=== PATIENT | female | born 1935 | race Caucasian/White ===

== ENCOUNTER 2017-04-27 11:25 | Outpatient (CLI) | payer MEDICARE, OTHER ==
--- NOTE | 2017-04-27 15:59 | XRAY Report ---
LEFT HIP AND PELVIS: 04/27/2017 CLINICAL INDICATION: Pain. FINDINGS: Frontal view of the hips and pelvis and frogleg lateral view of the left hip demonstrate m ild osteoarthritis. There is no evidence of fracture or dislocation. Vascular phleboliths are inciden tally noted. IMPRESSION: MILD LEFT HIP OSTEOARTHRITIS. JOB #: [id number] EXT JOB #:[id number]
== END 2017-04-27 11:26 | disposition home or self-care (01) ==
LOC: DI.S 11:25
PROVIDERS: ATTEND Nurse Practitioner Family
DX: M16.12 Unilateral primary osteoarthritis, left hip (principal)

== ENCOUNTER 2017-07-05 07:58 | Outpatient (CLI) | payer MEDICARE, OTHER ==
[2017-07-05] MEDS ORDERED: GADOBUTROL 7.5 MMOL/7.5 ML VIAL IVP ONE (09:19)
--- NOTE | 2017-07-05 18:17 | MRI Report ---
EXAM: MRI BRAIN WITHOUT AND WITH CONTRAST EXAM DATE: 07/05/2017 09:50 AM. CLINICAL HISTORY: Multiple sclerosis. Slurred speech, drooling, intermittent gait changes, vertigo. COMPARISON: CT head 06/23/2015, MR brain 04/11/2013. TECHNIQUE: Multiplanar, multisequence T1-weighted and fluid-sensitive MR sequences of the brain were performed. Sequences optimized for demyelinating disease evaluation. Other: None. Without and with IV Contrast: 6.5 mL IV Gadavist. FINDINGS: Diffusion-weighted sequence demonstrates no evidence for acute infarct or focal abnormalities. There is no mass, mass effect, midline shift or abnormal extra-axial collections. Size and configuration of the ventricles appear normal. Multifocal, innumerable, greater than 30, T2 hyperintense lesions throughout the periventricular and subcortical supratentorial white matter. Compared to most recent prior MRI 04/11/2013, multifocal new small lesions are scattered throughout bilateral centrum semiovale. Areas of semiconfluent T2 hyperi ntensities in the periventricular left frontal lobe, right posterior frontal lobe, peritrigonal left parietal lobe and periventricular frontal horns appear unchanged. In the infratentorial compartment, ill-defined T2 hyperintensity in the ventral anjel and left dorsola teral medulla most likely represents artifacts. Limited evaluation of the arterial and dural venous sinus structures are unremarkable. Major intracra nial flow voids are preserved. There is no abnormal enhancement. IMPRESSION: 1. No acute abnormalities. No acute infarct, intracranial hemorrhage, midline shift, mass lesion or h ydrocephalus. 2. Multifocal innumerable, too numerous to count T2 hyperintense lesions throughout the periventricul ar and subcortical cerebral white matter. In comparison to 04/11/2013, lesions appear more numerous i n bilateral centrum semiovale. Semiconfluent areas of T2 hyperintensities in general remain unchanged . No new or enlarging T1 hypointense lesion. 3. No abnormal enhancement to suggest active inflammation/demyelination. [facility] Referring Provider Line: [phone] SITE ID: [id number]
== END 2017-07-05 07:59 | disposition home or self-care (01) ==
LOC: DI 07:58
PROVIDERS: ATTEND Psychiatry & Neurology Neurology
DX: G35 Multiple sclerosis (principal); M47.896 Other spondylosis, lumbar region; M51.37 Other intervertebral disc degeneration, lumbosacral region; M51.36 Other intervertebral disc degeneration, lumbar region; R25.1 Tremor, unspecified; G47.01 Insomnia due to medical condition; R20.2 Paresthesia of skin
CPT/HCPCS: 70553; 72148; A9585

== ENCOUNTER 2017-07-05 07:59 | Outpatient (CLI) | payer MEDICARE, OTHER ==
--- NOTE | 2017-07-05 16:30 | MRI Report ---
EXAM: MRI LUMBAR SPINE WITHOUT CONTRAST EXAM DATE: 07/05/2017 09:24 AM. CLINICAL HISTORY: Chronic low back pain for many years. Left hip and buttock pain radiating into the left thigh. Some left leg numbness. COMPARISON: None. TECHNIQUE: Multiplanar, multisequence T1-weighted and fluid-sensitive sequences of the lumbar spine f rom T12 to S1 without contrast. Other: None. FINDINGS: Spinal Cord: The conus terminates at L1-L2. No signal abnormality in the visualized spinal cord. Alignment: Normal. No scoliosis or spondylolisthesis. Bone Marrow: Five [id number] lumbar vertebral bodies are assumed. No gross fractures or bone les ions. No bone marrow edema. Disk Levels/Facets: T12-L1: Unremarkable. L1-L2: Unremarkable. L2-L3: Mild bilateral facet joint osteoarthritis. L3-L4: There is a broad-based posterior disk bulge with mild facet joint osteoarthritis and ligamentu m flavum redundancy causing mild canal narrowing. Mild bilateral foraminal narrowing. L4-L5: There is mild bilateral facet joint osteoarthritis. There is mild bilateral foraminal narrowin g. The canal is patent. L5-S1: There is a posterior annular tear with a broad-based posterior disk bulge and mild facet joint osteoarthritis causing minimal canal narrowing. There is moderate right and mild left foraminal narr owing. On the right a facet joint osteophyte appears to contact the L5 nerve root. Musculature: Normal. No edema or fatty atrophy. Other: The visualized pelvic cavity is unremarkable. IMPRESSION: 1. Mild degenerative change of the lumbar spine from L2-L3 to L5-S1. 2. Mild facet joint osteoarthritis noted from L2-L3 to L5-S1. 3. An osteophyte appears to contact the right L5 nerve root in the neural foramen. Comment: The following findings are so common in adults without low back pain that while we report th eir presence, they must be interpreted with caution and in the context of the clinical situation. (Re nakia Miller et al, Spine 2001) Prevalence of findings in patients without low back pain: Disk degeneration (any evidence): 92% Disk desiccation/T2 signal loss: 83% Disk height loss: 56% Disk bulge: 64% Disk protrusion: 32% Annular tear/high intensity zone: 38% [facility] Referring Provider Line: [phone] SITE ID: [id number]
== END 2017-07-05 08:00 | disposition home or self-care (01) ==
LOC: DI 07:59
PROVIDERS: ATTEND Orthopaedic Surgery
DX: M47.896 Other spondylosis, lumbar region (principal); M51.37 Other intervertebral disc degeneration, lumbosacral region; M51.36 Other intervertebral disc degeneration, lumbar region
CPT/HCPCS: 72148

== ENCOUNTER 2018-03-13 09:29 | Outpatient (CLI) | payer MEDICARE, OTHER ==
[2018-03-13 10:18] LABS: CALCIUM 8.8 mg/dL (8.5-10.3)
== END 2018-03-13 09:30 | disposition home or self-care (01) ==
LOC: LAB 09:29
PROVIDERS: ATTEND Internal Medicine Cardiovascular Disease
DX: N18.3 Chronic kidney disease, stage 3 (moderate) (principal); I50.22 Chronic systolic (congestive) heart failure
CPT/HCPCS: 36415; 80048; 83880

== ENCOUNTER 2018-07-01 08:00 | Outpatient (CLI) | payer MEDICARE, OTHER ==
[2018-07-01 18:24] LABS: CALCIUM 9.2 mg/dL (8.5-10.3); CREATININE 1.1 mg/dL (0.4-1.0)
== END 2018-07-01 08:01 ==
LOC: LAB.S 08:00
PROVIDERS: ATTEND Family Medicine
DX: I48.2 Chronic atrial fibrillation (principal); I50.21 Acute systolic (congestive) heart failure
CPT/HCPCS: 36415; 80048

== ENCOUNTER 2018-12-11 07:37 | Outpatient (CLI) | payer MEDICARE, OTHER ==
--- NOTE | 2018-12-17 09:17 | Mammography Report ---
Reason: SCREENING MAMMO Procedure Date: 12/11/2018 Accession Number: [id number] / [id number] Procedure: MARIE - Screening Mammo Right w/Ray CPT Code: FULL RESULT: EXAM: Screening Mammo Right w/Ray DATE: 12/11/2018 8:14 AM CLINICAL HISTORY: Screening encounter. Personal history of left breast cancer status post mastectomy and radiation. Personal history of right breast cancer status post excisional biopsy and lumpectomy. TECHNIQUE: Right breast CC and MLO views were obtained. COMPARISON: 04/18/2017 through 04/23/2013. FINDINGS: The right breast demonstrates diffuse fatty replacement. Postsurgical changes and coarse typically benign calcifications as well as typically benign vascular calcifications are identified. No suspicious masses, clustered microcalcifications, or regions of architectural distortion are identified. IMPRESSION: Benign findings RECOMMENDATION: Routine annual screening unless otherwise clinically indicated. BIRADS CATEGORY 2: Benign findings STANDARD QUALIFYING STATEMENTS: 1. This examination was not reviewed with the aid of Computer-Aided Detection (CAD). 2. A negative or benign imaging report should not preclude biopsy if clinically suspicious findings are present. 3. Dense breasts may obscure an underlying neoplasm. 4. This examination was reviewed with the aid of 3D breast imaging (tomosynthesis).
== END 2018-12-11 07:38 | disposition home or self-care (01) ==
LOC: DI 07:37
PROVIDERS: ATTEND Internal Medicine Hematology & Oncology
DX: Z12.31 Encounter for screening mammogram for malignant neoplasm of breast (principal); Z08 Encounter for follow-up examination after completed treatment for malignant neoplasm; Z85.3 Personal history of malignant neoplasm of breast
CPT/HCPCS: 77063

== ENCOUNTER 2019-05-23 14:24 | Emergency (ER) | payer MEDICARE, OTHER ==
--- NOTE | 2019-05-23 14:59 | ED Physician Documentation ---
PD HPI HEAD INJURY - Stated complaint Stated Complaint: HEAD INJ - Chief complaint Chief Complaint: Trauma Hd/Nk - History obtained from History obtained from: Patient, Family () - History of Present Illness Mechanism of head injury: Blow Where head injury occurred: Home Timing - onset: How many days ago (3) Location of injury: Back, Top Quality of pain: Aching Associated symptoms: No: LOC, Nausea / vomiting, Neck pain Symptoms worsen with: Palpation Contributing factors: Anticoagulated (on Eliquis) Similar symptoms before: Has not had sx before - Additional information Additional information: The patient is a 83-year-old female who banged the occipital region of her scalp on a open cabinet door 3 days ago when she stood up from a bent over position. She reports that it was a very significant blow to her head. She denies loss of consciousness. She reports persistent occipital headache. She denies visual disturbance or vomiting, but has had mild nausea. She is treated with Eliquis, presumably for atrial fibrillation. She also has history of MS, and has undergone surgery and radiation therapy for breast cancer. Review of Systems Constitutional: denies: Fever Eyes: denies: Decreased vision Ears: denies: Tinnitus/ringing Nose: denies: Congestion Throat: denies: Sore throat Cardiac: denies: Chest pain / pressure Respiratory: denies: Dyspnea, Cough GI: reports: Nausea (mild). denies: Abdominal Pain, Vomiting : denies: Dysuria Skin: denies: Rash, Laceration (s) Musculoskeletal: denies: Neck pain, Extremity pain Neurologic: reports: Headache, Head injury. 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 - Past Surgical History /PAINTING TECHNICIAN: Mastectomy - Present Medications Home Medications: Ambulatory Orders Medication Instructions Recorded Confirmed Metoprolol Succinate [Toprol Xl] 25 mg PO DAILY 05/17/15 05/23/19 Omeprazole 20 mg PO DAILY 05/17/15 05/23/19 Spironolactone 25 mg PO BID 05/17/15 05/23/19 Apixaban [Eliquis] 5 mg PO DAILY 10/21/18 05/23/19 - Allergies Allergies/Adverse Reactions: Allergies Allergy/AdvReac Type Severity Reaction Status Date / Time benzocaine Allergy Severe Hives Verified 05/23/19 14:42 codeine AdvReac Anaphylaxis Verified 05/23/19 14:42 - Living Situation Living Situation: reports: With spouse/s.o. PD ED PE NORMAL - Vitals Vital signs reviewed: Yes (Borderline systolic hypertension initially.) - General General: Alert and oriented X 3, Well developed/nourished - HEENT HEENT: EOMI, Pharynx benign, Other (Mild tenderness to palpation of occipital scalp, without evidence of hematoma or laceration.) - Neck Neck: Supple, no meningeal sign, No bony TTP, No JVD, Other (Cervical range of motion intact, without tenderness.) - Cardiac Cardiac: RRR - Respiratory Respiratory: No respiratory distress, Clear bilaterally - Abdomen Abdomen: Soft, Non tender - Back Back: No CVA TTP, No spinal TTP - Derm Derm: No rash - Extremities Extremities: No edema, No calf tenderness / cord - Neuro Neuro: Alert and oriented X 3, No motor deficit, No sensory deficit Eye Opening: Spontaneous Motor: Obeys Commands Verbal: Oriented GCS Score: 15 Results - Vitals Vitals: Oxygen O2 Source Room air - Rads (name of study) Head CT w/o Radiology: Prelim report reviewed, EMP read contemporaneously, See rad report (Generalized age-related cortical atrophic changes without evidence of acute intracranial abnormality.) PD MEDICAL DECISION MAKING - ED course Complexity details: reviewed results, re-evaluated patient, considered differential, d/w patient, d/w family ED course: The patient's presentation is most consistent with scalp contusion. Head CT reveals no evidence of intracranial hemorrhage or skull fracture. I discussed the CT results with the patient and her . I discussed with them the expected course of injury, symptomatic treatment, as well as potentially worrisome signs or symptoms that should prompt reevaluation. Departure - Departure Disposition: 01 Home, Self Care Clinical Impression: Head contusion Qualifiers: Encounter type: initial encounter Contusion of head detail: scalp Qualified Code(s): S00.03XA - Contusion of scalp, initial encounter Condition: Stable Instructions: ED Head Injury Closed Follow-Up: Meño Bray MD [Primary Care Provider] - Comments: He can use Tylenol or ibuprofen as needed for headache or discomfort. Follow-up with your primary physician or return to the emergency department if you develop increasing headache, persistent vomiting, numbness or weakness, or otherwise worsening symptoms. Discharge Date/Time: 05/23/19 15:50
--- NOTE | 2019-05-23 15:38 | CT Report ---
Reason: Head injury, on Eliquis. Procedure Date: 05/23/2019 Accession Number: [id number] / [id number] Procedure: CT - HEAD WO CPT Code: FULL RESULT: EXAM: CT HEAD EXAM DATE: 05/23/2019 03:05 PM. CLINICAL HISTORY: Head injury, on Eliquis. COMPARISON: HEAD W/O 06/23/2015 2:58 PM. TECHNIQUE: Multiaxial CT images were obtained from the foramen magnum to the vertex. Reformats: Sagittal and coronal. IV contrast: None. In accordance with CT protocol optimization, one or more of the following dose reduction techniques were utilized for this exam: automated exposure control, adjustment of mA and/or KV based on patient size, or use of iterative reconstructive technique. FINDINGS: Parenchyma: No intraparenchymal hemorrhage. No evidence of mass, midline shift, or CT findings of acute infarction. Krishnamurthy-white differentiation is distinct. Diffuse chronic microangiopathic white matter changes. Extraaxial Spaces: Normal for age. No subdural or epidural collections. Ventricles: The ventricles and cortical sulci are enlarged, consistent with age-related tissue loss. Sinuses and orbits: Imaged paranasal sinuses, orbits, and mastoids show no significant abnormality. Bones: Unremarkable. Other: None. IMPRESSION: Generalized age-related cortical atrophic changes without evidence of acute intracranial abnormality. [facility]
[2019-05-23 16:13] VITALS: BP 146/76
== END 2019-05-23 15:50 | disposition home or self-care (01) ==
LOC: ED 14:24
DX: S00.03XA Contusion of scalp, initial encounter (principal); W22.8XXA Striking against or struck by other objects, initial encounter; Y92.009 Unspecified place in unspecified non-institutional (private) residence as the place of occurrence of the external cause; I48.91 Unspecified atrial fibrillation; Z79.01 Long term (current) use of anticoagulants; I10 Essential (primary) hypertension; G35 Multiple sclerosis; Z08 Encounter for follow-up examination after completed treatment for malignant neoplasm; Z85.3 Personal history of malignant neoplasm of breast
CPT/HCPCS: 70450; 99282; 99283

== ENCOUNTER 2019-07-09 15:34 | Outpatient (CLI) | payer MEDICARE, OTHER ==
[2019-07-09 17:39] LABS: MEAN CORPUSCULAR HEMOGLOBIN 30.3 pg (27.0-31.0); MEAN CORPUSCULAR HGB CONC 32.4 g/dL (32.0-36.0); MEAN CORPUSCULAR VOLUME 93.5 fL (81.0-99.0); MEAN PLATELET VOLUME 10.1 fL (7.9-10.8); RED BLOOD COUNT 4.29 10^6/uL (4.20-5.40); RED CELL DISTRIBUTION WIDTH 13.3 % (12.0-15.0); WHITE BLOOD COUNT 7.9 x10^3/uL (4.8-10.8)
[2019-07-09 18:01] LABS: ALBUMIN 4.4 g/dL (3.2-5.5); ALBUMIN/GLOBULIN RATIO 1.5 (1.0-2.2); ALKALINE PHOSPHATASE 72 IU/L (42-121); ALT ALANINE AMINOTRANSFERASE 14 IU/L (10-60); AST ASPARTATE AMINOTRANSFERASE 29 IU/L (10-42); BILIRUBIN,TOTAL 0.8 mg/dL (0.2-1.0); BUN - BLOOD UREA NITROGEN 15 mg/dL (6-20); CALCIUM 9.4 mg/dL (8.5-10.3); CARBON DIOXIDE - CO2 22 mmol/L (21-32); CHLORIDE 101 mmol/L (101-111); CHOL/HDL RATIO 3.7 (<4.4); CHOLESTEROL 200 mg/dL; CREATININE 1.1 mg/dL (0.4-1.0); GFR - MDRD 47 (>89); GLUCOSE 97 mg/dL (70-100); HDL CHOLESTEROL 54 mg/dL; LDL CHOLESTEROL,CALCULATED 123 mg/dL; LDL/HDL RATIO 2.3 (<4.4); SODIUM 135 mmol/L (135-145); TOTAL PROTEIN 7.4 g/dL (6.7-8.2); VLDL CHOLESTEROL 23 mg/dL
== END 2019-07-09 15:35 | disposition home or self-care (01) ==
LOC: LAB.S 15:34
PROVIDERS: ATTEND Internal Medicine
DX: E78.5 Hyperlipidemia, unspecified (principal); I48.2 Chronic atrial fibrillation; Z13.1 Encounter for screening for diabetes mellitus
CPT/HCPCS: 36415; 80053; 80061; 83036; 83721; 84443; 85027

== ENCOUNTER 2019-08-05 10:23 | Outpatient (CLI) | payer MEDICARE, OTHER ==
--- NOTE | 2019-08-05 14:36 | DEXA Report ---
Reason: OSTEOPOROSIS Procedure Date: 08/05/2019 Accession Number: [id number] / [id number] Procedure: DEX - Dexa Spine and/or Hip CPT Code: FULL RESULT: EXAM: Dexa Spine and/or Hip DATE: 08/05/2019 12:40 PM CLINICAL HISTORY: Osteopenia follow-up TECHNIQUE: Dual energy x-ray absorptiometry (DXA) was performed on a [employer] System. Regions measured are the AP Spine, femoral neck, and if needed forearm. COMPARISON: 03/13/2018, 03/05/2017 In accordance with the International Society for Clinical Densitometry (ISCD) guidelines, data from previous exams may be reanalyzed using current recommendations and techniques. This is done to allow a more accurate basis for comparison with the current study. FINDINGS: The data for the lumbar spine is as follows: BMD (g/cm/cm) T-SCORE Z-SCORE REGION L1 0.868 -2.2 -0.8 L2 1.012 -1.6 -0.2 L3 1.005 -1.6 -0.3 L4 0.981 -1.8 -0.5 TOTAL 0.970 -1.7 -0.4 NOTE: All evaluable vertebrae are used for classification The data for the hip is as follows: BMD (g/cm/cm) T-SCORE Z-SCORE REGION Neck 0.790 -1.8 0.2 TOTAL 0.810 -1.6 0.2 NOTE: The femoral neck or total proximal femur, whichever is lowest, is used for classification. DXA RESULTS SUMMARY: Spine SCAN DATE [age] BMD CHANGE VS CHANGE VS PREVIOUS PREVIOUS % [birth year]2019 [age] 0[age]970 0.031* 3.3* 03[birth year]13/2018 82.5 0.939 -0.014 -1.5 03/05/2017 81.4 0.953 * Denotes significant change at the 95% confidence level. Denotes dissimilar scan types or analysis methods. DXA RESULTS SUMMARY: Hip SCAN DATE [age]GE BMD CHANGE VS CHANGE VS PREVIOUS PREVIOUS % [birth year]2019 [age] 0.810 -0.008 -1 03[birth year]13[birth year]2018 82.5 0.818 -0.001 -0.1 03/05/2017 81.4 0.819 * Denotes significant change at the 95% confidence level. Denotes dissimilar scan types or analysis methods. IMPRESSION: THE WHO CLASSIFICATION BASED ON THE INTERNATIONAL REFERENCE STANDARD IS OSTEOPENIA, REFERENCE LEFT FEMORAL NECK. THE FRACTURE RISK IS INCREASED. RECOMMENDATION: Patients with diagnosis of osteoporosis or osteopenia should have regular bone mineral density assessment. For those eligible for Medicare, routine testing is allowed once every 2 years. Testing frequency can be increased for patients who have rapidly progressing disease or for those who are receiving medical therapy to restore bone mass. COMMENT: World Health Organization (WHO) definitions for osteoporosis and osteopenia: NORMAL BMD: T-score at -1.0 or higher, fracture risk is low OSTEOPENIA BMD: T-score between -1.0 and -2.5, fracture risk is increased. OSTEOPOROSIS BMD: T-score at -2.5 or lower, fracture risk is high. National Osteoporosis Foundation recommends: 1. Obtain adequate dietary calcium (at least 1200 mg per day) and vitamin D (400-800 international units per day). 2. Participate, as appropriate, in regular weightbearing and muscle-strengthening exercise. 3. Avoid tobacco use and reduce alcohol and caffeine intake. 4. For more detailed information see the website at www.NOF.org.
== END 2019-08-05 10:24 | disposition home or self-care (01) ==
LOC: DI 10:23
PROVIDERS: ATTEND Internal Medicine
DX: M85.89 Other specified disorders of bone density and structure, multiple sites (principal)
CPT/HCPCS: 77080

== ENCOUNTER 2019-09-04 12:14 | Outpatient (CLI) | payer MEDICARE, OTHER | END 2019-09-04 12:15 | disposition home or self-care (01) | LOC: RT 12:14 | PROVIDERS: ATTEND Internal Medicine Cardiovascular Disease | DX: I48.91 Unspecified atrial fibrillation (principal) | CPT/HCPCS: 93005 ==

== ENCOUNTER 2019-09-29 11:19 | Outpatient (CLI) | payer MEDICARE, OTHER | END 2019-09-29 11:20 | disposition home or self-care (01) | LOC: DI 11:19 | PROVIDERS: ATTEND Internal Medicine Cardiovascular Disease | DX: I50.9 Heart failure, unspecified (principal); I34.0 Nonrheumatic mitral (valve) insufficiency | CPT/HCPCS: 93306 ==

== ENCOUNTER 2020-04-05 11:57 | Emergency (ER) | payer MEDICARE, OTHER ==
[2020-04-05 12:31] LABS: BASOPHILS % (AUTO) 0.4 %; EOSINOPHILS # (AUTO) 0.1 10^3/uL (0.0-0.7); HGB - HEMOGLOBIN 12.1 g/dL (12.0-16.0); LYMPHOCYTES # (AUTO) 1.7 10^3/uL (1.5-3.5); LYMPHOCYTES % (AUTO) 23.5 %; MEAN CORPUSCULAR HEMOGLOBIN 30.6 pg (27.0-31.0); MEAN CORPUSCULAR HGB CONC 33.4 g/dL (32.0-36.0); MEAN CORPUSCULAR VOLUME 91.6 fL (81.0-99.0); MEAN PLATELET VOLUME 8.4 fL (7.9-10.8); MONOCYTES # (AUTO) 0.9 10^3/uL (0.0-1.0); MONOCYTES % (AUTO) 12.2 %; NEUTROPHILS # (AUTO) 4.5 10^3/uL (1.5-6.6); NEUTROPHILS % (AUTO) 62.5 %; PLT - PLATELET COUNT 239 10^3/uL (130-450); RED BLOOD COUNT 3.95 10^6/uL (4.20-5.40); RED CELL DISTRIBUTION WIDTH 12.5 % (12.0-15.0); WHITE BLOOD COUNT 7.1 x10^3/uL (4.8-10.8)
[2020-04-05 12:41] LABS: ALBUMIN 4.2 g/dL (3.2-5.5); ALBUMIN/GLOBULIN RATIO 1.4 (1.0-2.2); BILIRUBIN,TOTAL 0.5 mg/dL (0.2-1.0); CALCIUM 8.9 mg/dL (8.5-10.3); CREATININE 1.6 mg/dL (0.4-1.0); TOTAL PROTEIN 7.3 g/dL (6.7-8.2)
--- NOTE | 2020-04-05 13:00 | XRAY Report ---
Reason: Chest Pain Procedure Date: 04/05/2020 Accession Number: [id number] / [id number] Procedure: XR - Chest 1 View X-Ray CPT Code: 29576 Final Report FULL RESULT: EXAM: CHEST RADIOGRAPHY EXAM DATE: 04/05/2020 12:34 PM. CLINICAL HISTORY: Chest Pain. COMPARISON: CXR 1V 07/17/2007 5:30 PM. TECHNIQUE: 1 view. FINDINGS: Lungs/Pleura: Right costophrenic angle blunting. No pneumothorax. Mediastinum: Atherosclerotic aortic calcification. Other: Left lateral and right lower chest surgical clips. Proximal right humeral deformity. Bones appear osteopenic. IMPRESSION: 1. Proximal right humeral nondisplaced fracture, possibly acute or subacute. Consider dedicated right shoulder series to further assess. 2. Right costophrenic angle blunting, likely due to small pleural effusion or early airspace disease. [facility]
--- NOTE | 2020-04-05 13:43 | ED Physician Documentation ---
PD HPI DYSPNEA - Stated complaint Stated Complaint: CP/WEAKNESS - Chief complaint Chief Complaint: Cardiac - History obtained from History obtained from: Patient - History of Present Illness Timing - onset: How many days ago (3-4) Timing - onset during: Rest, Light activity Timing - duration: Days Timing - details: Gradual onset (has had several days of chest tightness, dyspnea, general fatigue. States felt chills/myalgias at onset of it, but not the past 1-2 days. Concerned about cause of general weakness. Has history of MS, which had been reasonably stable lately.), Still present, Waxing and waning Inciting event(s): No: Out of meds, URI Improved by: Rest Worsened by: Exertion (just simple working). No: Laying flat, Coughing Associated symptoms: Palpitations. No: Fever (but feeling of chills), Cough, Wheezing, Diaphoresis, Bilateral edema Similar symptoms before: Diagnosis (weakness in the past related to MS and immune related disease.) Review of Systems Constitutional: reports: Chills, Myalgias, Fatigue. denies: Fever, Weight Loss Nose: denies: Rhinorrhea / runny nose, Congestion Throat: denies: Sore throat Cardiac: reports: Chest pain / pressure, Pedal edema. denies: Palpitations, Calf pain Respiratory: reports: Dyspnea. denies: Cough GI: denies: Abdominal Pain, Nausea, Vomiting, Diarrhea Neurologic: reports: Generalized weakness. 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 - Past Surgical History Past Surgical History: Yes /SSAS DEVELOPER: Mastectomy - Present Medications Home Medications: Ambulatory Orders Medication Instructions Recorded Confirmed Metoprolol Succinate [Toprol Xl] 25 mg PO DAILY 05/17/15 05/23/19 Omeprazole 20 mg PO DAILY 05/17/15 05/23/19 Spironolactone 25 mg PO BID 05/17/15 05/23/19 Apixaban [Eliquis] 5 mg PO DAILY 10/21/18 05/23/19 dexAMETHasone [Decadron] 4 mg PO DAILY #5 tablet 04/05/20 - Allergies Allergies/Adverse Reactions: Allergies Allergy/AdvReac Type Severity Reaction Status Date / Time benzocaine Allergy Severe Hives Verified 04/05/20 12:03 codeine AdvReac Anaphylaxis Verified 04/05/20 12:03 - Social History Does the pt smoke?: No Smoking Status: Never smoker Does the pt drink ETOH?: No Does the pt have substance abuse?: No - Immunizations Immunizations are current?: No - POLST Patient has POLST: No PD ED PE NORMAL - Vitals Vital signs reviewed: Yes - General General: Alert and oriented X 3, Well developed/nourished - HEENT HEENT: Pharynx benign - Neck Neck: Supple, no meningeal sign, No adenopathy, Thyroid normal - Cardiac Cardiac: RRR, No murmur - Respiratory Respiratory: Clear bilaterally - Abdomen Abdomen: Normal bowel sounds, Soft, Non tender - Back Back: No CVA TTP - Derm Derm: Normal color, Warm and dry - Extremities Extremities: No tenderness to palpate, Normal ROM s pain, No edema, No calf tenderness / cord - Neuro Neuro: Alert and oriented X 3, No motor deficit, Normal speech Results - Vitals Vitals: Vital Signs - 24 hr 04/05/20 04/05/20 04/05/20 12:04 13:00 13:51 Temperature 36.2 C L Heart Rate 77 70 71 Respiratory 20 16 16 Rate Blood Pressure 133/53 H 139/67 H 143/64 H O2 Saturation 100 99 100 04/05/20 14:54 Temperature Heart Rate 75 Respiratory 16 Rate Blood Pressure 138/65 H O2 Saturation 99 Oxygen O2 Source Room air - EKG (time done) 12:19 Rate: Rate (enter#) (73) Rhythm: NSR Hulbert: Normal Intervals: Normal AL QRS: Normal Ischemia: Normal ST segments. No: ST elevation c/w ischemia, ST depression - Labs Labs: Laboratory Tests 04/05/20 04/05/20 04/05/20 12:20 12:20 12:20 WBC 7.1 RBC 3.95 L Hgb 12.1 Hct 36.2 L MCV 91.6 MCH 30.6 MCHC 33.4 RDW 12.5 Plt Count 239 MPV 8.4 Neut # (Auto) 4.5 Lymph # (Auto) 1.7 King # (Auto) 0.9 Eos # (Auto) 0.1 Baso # (Auto) 0.0 Absolute Nucleated RBC 0.00 Nucleated RBC % 0.0 Sodium 126 L Potassium 3.7 Chloride 96 L Carbon Dioxide 20 L Anion Gap 10.0 BUN 21 H Creatinine 1.6 H Estimated GFR (MDRD) 31 L Glucose 138 H Calcium 8.9 Magnesium Total Bilirubin 0.5 AST 24 ALT 14 Alkaline Phosphatase 72 Total Creatine Kinase Troponin I High Sens 2.6 B-Natriuretic Peptide Total Protein 7.3 Albumin 4.2 Globulin 3.1 Albumin/Globulin Ratio 1.4 Lipase 33 TSH 04/05/20 04/05/20 04/05/20 12:20 12:20 12:20 WBC RBC Hgb Hct MCV MCH MCHC RDW Plt Count MPV Neut # (Auto) Lymph # (Auto) King # (Auto) Eos # (Auto) Baso # (Auto) Absolute Nucleated RBC Nucleated RBC % Sodium Potassium Chloride Carbon Dioxide Anion Gap BUN Creatinine Estimated GFR (MDRD) Glucose Calcium Magnesium 1.7 Total Bilirubin AST ALT Alkaline Phosphatase Total Creatine Kinase 37 Troponin I High Sens B-Natriuretic Peptide 56 Total Protein Albumin Globulin Albumin/Globulin Ratio Lipase TSH 3.94 - Rads (name of study) chest xray Radiology: Prelim report reviewed (prior right humeral neck fracture. some blunting of costophrenic angle. ), See rad report PD MEDICAL DECISION MAKING - ED course Complexity details: reviewed results, considered differential, d/w patient Departure - Departure Disposition: 01 Home, Self Care Clinical Impression: General weakness, Hyponatremia, History of multiple sclerosis Condition: Stable Record reviewed to determine appropriate education?: Yes Instructions: ED Dyspnea Shortness of Breath, ED Weakness [facility] Follow-Up: Meño Bray MD [Primary Care Provider] - Prescriptions: dexAMETHasone [Decadron] 4 mg PO DAILY #5 tablet Comments: Your sodium is moderately low at 126 which is below your typical level. Your other electrolytes including potassium magnesium and calcium are in the normal range. Your kidney function is slightly abnormal as well. These effects could be from over effectiveness of your diuretic so I would have you decrease your spironolactone from twice a day to once a day for the next 5 days. Your symptoms potentially could be from flareup of your MS though less common to be so generalized. We could treat with 5 days of a mild steroid medicine in case that is part of it. Return to the ER follow-up with your primary care if worsening over the next couple of days otherwise anticipate improvement gradually over the next several days and follow-up by the end of this week. Discharge Date/Time: 04/05/20 15:00
[2020-04-05 14:41] LABS: MAGNESIUM 1.7 mg/dL (1.7-2.8)
[2020-04-05] MEDS ORDERED: DEXAMETHASONE 10 MG/ML VIAL PO STA (14:52)
[2020-04-05] MEDS ORDERED: CHERRY SYRUP 10 ML UDC PO ONE (14:52)
[2020-04-05 14:55] VITALS: BP 138/65
== END 2020-04-05 15:00 | disposition home or self-care (01) ==
LOC: ED 11:57
DX: E87.1 Hypo-osmolality and hyponatremia (principal); R53.1 Weakness; G35 Multiple sclerosis; I11.0 Hypertensive heart disease with heart failure; I50.9 Heart failure, unspecified; I48.91 Unspecified atrial fibrillation; Z79.01 Long term (current) use of anticoagulants
CPT/HCPCS: 36415; 71045; 80053; 82550; 83690; 83735; 83880; 84443; 84484; 85025; 93005; 99284

== ENCOUNTER 2021-05-05 11:30 | Outpatient (CLI) | payer MEDICARE, OTHER | END 2021-05-05 11:31 | disposition home or self-care (01) | LOC: LAB.S 11:30 | PROVIDERS: ATTEND Internal Medicine Cardiovascular Disease | DX: I48.91 Unspecified atrial fibrillation (principal) | CPT/HCPCS: 36415; 82565 ==

== ENCOUNTER 2021-07-09 11:11 | Outpatient (CLI) | payer MEDICARE, OTHER ==
[2021-07-09 15:21] LABS: BASOPHILS # (AUTO) 0.1 10^3/uL (0.0-0.1); BASOPHILS % (AUTO) 0.6 %; EOSINOPHILS # (AUTO) 0.1 10^3/uL (0.0-0.7); EOSINOPHILS % (AUTO) 1.1 %; HCT - HEMATOCRIT 39.3 % (37.0-47.0); HGB - HEMOGLOBIN 12.2 g/dL (12.0-16.0); LYMPHOCYTES # (AUTO) 2.5 10^3/uL (1.5-3.5); LYMPHOCYTES % (AUTO) 27.4 %; MEAN CORPUSCULAR HEMOGLOBIN 28.4 pg (27.0-31.0); MEAN CORPUSCULAR VOLUME 91.6 fL (81.0-99.0); MEAN PLATELET VOLUME 9.6 fL (7.9-10.8); MONOCYTES # (AUTO) 0.9 10^3/uL (0.0-1.0); MONOCYTES % (AUTO) 9.6 %; NEUTROPHILS # (AUTO) 5.5 10^3/uL (1.5-6.6); NEUTROPHILS % (AUTO) 61.1 %; PLT - PLATELET COUNT 260 10^3/uL (130-450); RED BLOOD COUNT 4.29 10^6/uL (4.20-5.40)
[2021-07-09 15:36] LABS: ALBUMIN 4.1 g/dL (3.2-5.5); ALBUMIN/GLOBULIN RATIO 1.6 (1.0-2.2); ALKALINE PHOSPHATASE 68 IU/L (42-121); ALT ALANINE AMINOTRANSFERASE 12 IU/L (10-60); AST ASPARTATE AMINOTRANSFERASE 20 IU/L (10-42); BILIRUBIN,TOTAL 0.9 mg/dL (0.2-1.0); BUN - BLOOD UREA NITROGEN 22 mg/dL (6-20); CALCIUM 9.4 mg/dL (8.5-10.3); CARBON DIOXIDE - CO2 24 mmol/L (21-32); CHLORIDE 103 mmol/L (101-111); CHOL/HDL RATIO 2.9 (<4.4); CHOLESTEROL 241 mg/dL; GFR - MDRD 53 (>89); GLUCOSE 103 mg/dL (70-100); HDL CHOLESTEROL 83 mg/dL; LDL CHOLESTEROL,CALCULATED 145 mg/dL; LDL/HDL RATIO 1.7 (<4.4); POTASSIUM 4.2 mmol/L (3.5-5.0); SODIUM 136 mmol/L (135-145); TOTAL PROTEIN 6.7 g/dL (6.7-8.2); TRIGLYCERIDES 67 mg/dL; VLDL CHOLESTEROL 13 mg/dL
[2021-07-09 15:45] LABS: THYROID STIMULATING HORMONE 3.52 uIU/mL (0.34-5.60)
== END 2021-07-09 11:12 | disposition home or self-care (01) ==
LOC: LAB.S 11:11
PROVIDERS: ATTEND Registered Nurse
DX: G35 Multiple sclerosis (principal); Z79.899 Other long term (current) drug therapy; E78.5 Hyperlipidemia, unspecified; M81.0 Age-related osteoporosis without current pathological fracture; G43.709 Chronic migraine without aura, not intractable, without status migrainosus; Z79.01 Long term (current) use of anticoagulants; R53.1 Weakness; E87.1 Hypo-osmolality and hyponatremia; K21.9 Gastro-esophageal reflux disease without esophagitis
CPT/HCPCS: 36415; 80053; 80061; 83721; 84443; 85025

== ENCOUNTER 2021-12-17 11:32 | Outpatient (CLI) | payer MEDICARE, OTHER | END 2021-12-17 11:33 | disposition short-term general hospital (02) | LOC: EMS 11:32 | DX: I48.91 Unspecified atrial fibrillation (principal) | CPT/HCPCS: A0425; A0427 ==

== ENCOUNTER 2021-12-20 22:25 | Outpatient (CLI) | payer MEDICARE, OTHER | END 2021-12-20 22:26 | disposition critical access hospital (66) | LOC: EMS 22:25 | DX: R06.00 Dyspnea, unspecified (principal) | CPT/HCPCS: A0425; A0427 ==

== ENCOUNTER 2021-12-20 22:58 | Emergency (ER) | payer MEDICARE, OTHER ==
[2021-12-20] MEDS: LORazepam 2 MG/ML VIAL IVP STA (23:27)
[2021-12-20] MEDS: SODIUM CHLORIDE 0.9% 1,000 ML IV STA (23:34)
--- NOTE | 2021-12-20 23:34 | XRAY Report ---
PROCEDURE: Chest 1 View X-Ray INDICATIONS: Chest Pain TECHNIQUE: One view of the chest was acquired. COMPARISON: Chest x-ray 04/05/2020 FINDINGS: Surgical changes and devices: None. Lungs and pleura: There is overall appearance of increased pulmonary vascularity. There is blunting o f the costophrenic angles with minimal bibasilar opacities, left greater than right. Mediastinum: Mediastinal contours appear normal. Heart size is normal. Bones and chest wall: No suspicious bony lesions. Overlying soft tissues appear unremarkable. IMPRESSION: Increased vascularity most suggestive of edema with bibasilar opacities consistent with effusion. Reviewed by: Jen Batista MD on 12/20/2021 11:33 PM [facility] Approved by: Jen Batista MD on 12/20/2021 11:33 PM [facility] Station ID: [id number]
[2021-12-20 23:52] LABS: BASOPHILS % (AUTO) 0.6 %; EOSINOPHILS # (AUTO) 0.1 10^3/uL (0.0-0.7); EOSINOPHILS % (AUTO) 1.6 %; LYMPHOCYTES # (AUTO) 1.7 10^3/uL (1.5-3.5); LYMPHOCYTES % (AUTO) 24.4 %; MEAN CORPUSCULAR HEMOGLOBIN 27.2 pg (27.0-31.0); MEAN CORPUSCULAR HGB CONC 31.3 g/dL (32.0-36.0); MEAN CORPUSCULAR VOLUME 87.2 fL (81.0-99.0); MEAN PLATELET VOLUME 8.9 fL (7.9-10.8); MONOCYTES # (AUTO) 0.7 10^3/uL (0.0-1.0); NEUTROPHILS # (AUTO) 4.3 10^3/uL (1.5-6.6); PLT - PLATELET COUNT 231 10^3/uL (130-450); RED BLOOD COUNT 3.67 10^6/uL (4.20-5.40); RED CELL DISTRIBUTION WIDTH 14.4 % (12.0-15.0); WHITE BLOOD COUNT 6.8 x10^3/uL (4.8-10.8)
[2021-12-21 00:02] LABS: INR 1.2 (0.8-1.2); PT - PROTHROMBIN TIME 13.6 secs (9.9-12.6)
[2021-12-21 00:04] LABS: ALBUMIN 3.5 g/dL (3.2-5.5); ALBUMIN/GLOBULIN RATIO 1.3 (1.0-2.2); BILIRUBIN,TOTAL 0.6 mg/dL (0.2-1.0); CALCIUM 8.5 mg/dL (8.5-10.3); CREATININE 1.3 mg/dL (0.4-1.0); POTASSIUM 3.4 mmol/L (3.5-5.0); TOTAL PROTEIN 6.2 g/dL (6.7-8.2)
[2021-12-21 00:08] LABS: D-DIMER < 200.0 ng/mL (200.0-255.0)
[2021-12-21] MEDS: diltiaZEM INJ 5 MG/ML VIAL IVP STA ×2 (00:41→02:44)
[2021-12-21] MEDS: FUROSEMIDE 40 MG/4 ML VIAL IVP STA (00:41)
[2021-12-21] MEDS: diltiaZEM CD 120 MG CAPSULE PO STA (03:02)
[2021-12-21 03:05] VITALS: BP 125/89
--- NOTE | 2021-12-21 03:40 | ED Physician Documentation ---
PD HPI DYSPNEA - Stated complaint Stated Complaint: SOA - Chief complaint Chief Complaint: Resp - History obtained from History obtained from: Patient, EMS - Additional information Additional information: The patient is brought to the emergency department by EMS for chief complaint of shortness of breath. The patient has been increasingly short of breath over the last couple of weeks, about tonight, when she went to lay down, she became especially short of breath, and ultimately, her called EMS. The patient has a history of atrial fibrillation, but medics state that the rhythm strip the y printed appeared to be sinus tachycardia. Patient denies any chest pain. No fevers or chills. No cough. The medics state that they gave her about 500 cc of IV fluid, and she seemed to do a little better after that. This to her heart rate came down for of time, but then patient seemed to get anxious and the heart rate went up again. The state patient has been running around the 120s. The p atient denies any swelling in her lower extremities. She has a known history of atrial fibrillation but no other cardiac issues that she knows of. Review of Systems Ten Systems: 10 systems reviewed and negative Constitutional: reports: Reviewed and negative Eyes: reports: Reviewed and negative Ears: reports: Reviewed and negative Nose: reports: Reviewed and negative Throat: reports: Reviewed and negative Cardiac: reports: Palpitations Respiratory: reports: Dyspnea GI: reports: Reviewed and negative : reports: Reviewed and negative Skin: reports: Reviewed and negative Musculoskeletal: reports: Reviewed and negative Neurologic: reports: Reviewed and negative Psychiatric: reports: Reviewed and negative Endocrine: reports: Reviewed and negative Immunocompromised: reports: Reviewed and negative PD PAST MEDICAL HISTORY - Past Medical History Cardiovascular: Congestive heart failure, Hypertension, Atrial fibrillation Neuro: Multiple sclerosis 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 - Past Surgical History Past Surgical History: Yes /MOTOR INSTALLER: Mastectomy - Present Medications Home Medications: Ambulatory Orders Medication Instructions Recorded Confirmed Metoprolol Succinate [Toprol Xl] 25 mg PO DAILY 05/17/15 05/23/19 Omeprazole 20 mg PO DAILY 05/17/15 05/23/19 Spironolactone 25 mg PO BID 05/17/15 05/23/19 Apixaban [Eliquis] 5 mg PO DAILY 10/21/18 05/23/19 dexAMETHasone [Decadron] 4 mg PO DAILY #5 tablet 04/05/20 - Allergies Allergies/Adverse Reactions: Allergies Allergy/AdvReac Type Severity Reaction Status Date / Time benzocaine Allergy Severe Hives Verified 12/20/21 23:11 codeine AdvReac Anaphylaxis Verified 12/20/21 23:11 - Social History Does the pt smoke?: No Smoking Status: Never smoker Does the pt drink ETOH?: No Does the pt have substance abuse?: No - Immunizations Immunizations are current?: No - POLST Patient has POLST: No PD ED PE NORMAL - Vitals Vital signs reviewed: Yes - General General: Alert and oriented X 3, Well developed/nourished, Other (Patient is fairly well-appearing, but is in mild respiratory distress, with moderate tachypnea and mildly labored respirations.) - HEENT HEENT: PERRL - Cardiac Cardiac: No murmur, Strong equal pulses, Other (Tachycardic rate, irregular) - Respiratory Respiratory: Other (Mild respiratory distress. Patient speaks in full sentences but has mildly labored respirations and tachypnea. Mild crackles bilateral bases) - Abdomen Abdomen: Soft, Non tender, Non distended - Derm Derm: Normal color, Warm and dry, No rash - Extremities Extremities: No deformity, No edema, No calf tenderness / cord - Neuro Neuro: Alert and oriented X 3, feed in worker 2-12 intact, Normal speech - Psych Psych: Normal mood, Normal affect Results - Vitals Vitals: Vital Signs - 24 hr 12/20/21 12/21/21 12/21/21 23:00 00:49 02:00 Temperature 35.7 C L Heart Rate 118 H 136 H 84 Respiratory 22 24 25 H Rate Blood Pressure 127/77 142/84 H 131/62 H O2 Saturation 100 98 99 12/21/21 12/21/21 03:04 03:05 Temperature Heart Rate 120 H 93 Respiratory 26 H Rate Blood Pressure 125/89 H O2 Saturation 99 Oxygen O2 Source Room air - EKG (time done) 2310 Rate: Rate (enter#) (114) Rhythm: Atrial fibrillation [place]vel: Normal QRS: Normal Ischemia: Normal ST segments Compare to prior EKG: Old EKG unavailable 0342 Rate: Rate (enter#) (115) Rhythm: Sinus tachycardia Covel: Normal Intervals: Normal AR QRS: Normal Ischemia: Normal ST segments, Non specific changes Compare to prior EKG: Changed from prior EKG Computer interpretation: Agree with computer - Labs Labs: Laboratory Tests 12/20/21 12/20/21 12/20/21 23:46 23:46 23:46 WBC 6.8 RBC 3.67 L Hgb 10.0 L Hct 32.0 L MCV 87.2 MCH 27.2 MCHC 31.3 L RDW 14.4 Plt Count 231 MPV 8.9 Neut # (Auto) 4.3 Lymph # (Auto) 1.7 [place] # (Auto) 0.7 Eos # (Auto) 0.1 Baso # (Auto) 0.0 Absolute Nucleated RBC 0.00 Nucleated RBC % 0.0 PT 13.6 H INR 1.2 D-Dimer < 200.0 L Sodium 135 Potassium 3.4 L Chloride 104 Carbon Dioxide 21 Anion Gap 10.0 BUN 18 Creatinine 1.3 H Estimated GFR (MDRD) 39 L Glucose 98 Calcium 8.5 Total Bilirubin 0.6 AST 22 ALT 19 Alkaline Phosphatase 80 Troponin I High Sens B-Natriuretic Peptide Total Protein 6.2 L Albumin 3.5 Globulin 2.7 Albumin/Globulin Ratio 1.3 Lipase 33 12/20/21 12/20/21 23:46 23:46 WBC RBC Hgb Hct MCV MCH MCHC RDW Plt Count MPV Neut # (Auto) Lymph # (Auto) [place] # (Auto) Eos # (Auto) Baso # (Auto) Absolute Nucleated RBC Nucleated RBC % PT INR D-Dimer Sodium Potassium Chloride Carbon Dioxide Anion Gap BUN Creatinine Estimated GFR (MDRD) Glucose Calcium Total Bilirubin AST ALT Alkaline Phosphatase Troponin I High Sens 20.7 H* B-Natriuretic Peptide 574 H Total Protein Albumin Globulin Albumin/Globulin Ratio Lipase - Rads (name of study) Chest x-ray Radiology: Final report received, EMP read indepedently, See rad report (Pulmonary vascular ingestion, small bilateral pleural effusion) PD MEDICAL DECISION MAKING - ED course Complexity details: reviewed results, re-evaluated patient, considered differential, d/w patient ED course: The patient was evaluated by myself upon arrival in the emergency department. She was placed on the phd internship which showed tachycardia in the 120s. There was a lot of artifact and it was difficult to tell if the patient was in sinus rhythm with occasional ectopy, or atrial fibrillation. EKG was performed and also showed quite a bit of artifact, but was read as atrial fibrillation. Patient's oxygen saturation was 100% on room air and blood pressure was normal. She was worked up with labs, including D-dimer, which was negative. White count was negative. EKG showed no signs of ischemia. The patient's BNP was elevated and chest x-ray showed pulmonary vascular congestion. I stopped the fluids EMS had started and gave the patient 40 mg of Lasix IV. I ultimately gave the patient IV and p.o. Cardizem, and she ultimately converted to normal sinus rhythm. The patient was found to be feeling much better and looking much better. She had put out a lot of urine in the emergency department. It was at this point that the patient informed me that she just seen her doctor today and, and her doctor had prescribed Lasix for 5 days, due to the symptoms the patient has been having. The patient had not yet started her Lasix regimen. I discussed with her that it is important that she takes Lasix as prescribed. We have discussed will probably take several days for the patient to get feeling better she may need to walk shorter distances and sleep propped up a little 11th. However, her heart rate and rhythm are now normal, and her oxygen satu ration and blood pressure look good and she is stable for discharge home. We have discussed home management of symptoms and the usual indications for return. Departure - Departure Disposition: 01 Home, Self Care Clinical Impression: Atrial fibrillation with rapid ventricular response CHF exacerbation Qualifiers: Heart failure type: unspecified Qualified Code(s): I50.9 - Heart failure, unspecified Condition: Stable Instructions: ED Afib, ED CHF General Comments: Your chest x-ray today showed some fluid in your lungs, which is not surprising, given the symptoms you have had. Your heart was also beating too fast from the atrial fibrillation, but we gave you medication through the IV and orally to help slow this down. The plan that your primary doctor may to put you on a water pill for this next week is a good idea. We gave you a dose of the same medication through the IV here in the emergency department, and your kidneys have responded well. As your kidneys put out fluid from your body in the form of urine, the extra fluid that has built up in the lower reaches of your lungs will reabsorb and this will ease your breathing quite a bit. Your oxygen levels are at 100% here, and your heart rhythm has converted from atrial fibrillation to a normal rate and a normal rhythm. Your blood pressure also looks good. As such, there is no indication to keep you in the hospital at this time. You should not try to walk long distances, , And just take it slow getting around her house until you are feeling better. It is not advisable to get all the fluid out at one time, but is best done over several days, as your primary doctor has arranged. If you develop severe shortness of breath again, please return to the emergency department and we can certainly re-evaluate you, but at this point in time, you are stable to go home. Discharge Date/Time: 12/21/21 04:13
== END 2021-12-21 04:13 | disposition home or self-care (01) ==
LOC: EDUNIT# → SUPCPDRO 22:58 → ED 22:58
DX: I48.91 Unspecified atrial fibrillation (principal); I11.0 Hypertensive heart disease with heart failure; I50.9 Heart failure, unspecified; Z79.01 Long term (current) use of anticoagulants
CPT/HCPCS: 36415; 71045; 80053; 83690; 83880; 84484; 85025; 85379; 85610; 93005; 96374; 96375; 99283; 99284; A9270; J2060

== ENCOUNTER 2022-01-01 22:05 | Outpatient (CLI) | payer MEDICARE, OTHER | END 2022-01-01 22:06 | disposition critical access hospital (66) | LOC: EMS 22:05 | DX: R06.09 Other forms of dyspnea (principal); R10.13 Epigastric pain | CPT/HCPCS: A0425; A0429 ==

== ENCOUNTER 2022-01-01 22:36 | Inpatient (IN) | payer MEDICARE, OTHER ==
[2022-01-01 22:57] LABS: BASOPHILS # (AUTO) 0.1 10^3/uL (0.0-0.1); BASOPHILS % (AUTO) 0.6 %; EOSINOPHILS % (AUTO) 11.6 %; HCT - HEMATOCRIT 32.4 % (37.0-47.0); HGB - HEMOGLOBIN 10.5 g/dL (12.0-16.0); LYMPHOCYTES # (AUTO) 2.1 10^3/uL (1.5-3.5); LYMPHOCYTES % (AUTO) 26.1 %; MEAN CORPUSCULAR HGB CONC 32.4 g/dL (32.0-36.0); MEAN CORPUSCULAR VOLUME 83.3 fL (81.0-99.0); MEAN PLATELET VOLUME 9.6 fL (7.9-10.8); MONOCYTES # (AUTO) 0.9 10^3/uL (0.0-1.0); MONOCYTES % (AUTO) 10.4 %; NEUTROPHILS # (AUTO) 4.2 10^3/uL (1.5-6.6); NEUTROPHILS % (AUTO) 50.8 %; PLT - PLATELET COUNT 287 10^3/uL (130-450); RED BLOOD COUNT 3.89 10^6/uL (4.20-5.40); RED CELL DISTRIBUTION WIDTH 13.9 % (12.0-15.0); WHITE BLOOD COUNT 8.2 x10^3/uL (4.8-10.8)
[2022-01-01 23:13] LABS: ALBUMIN 3.8 g/dL (3.2-5.5); ALBUMIN/GLOBULIN RATIO 1.5 (1.0-2.2); BILIRUBIN,TOTAL 1.3 mg/dL (0.2-1.0); CALCIUM 9.1 mg/dL (8.5-10.3); CREATININE 1.6 mg/dL (0.4-1.0); POTASSIUM 4.5 mmol/L (3.5-5.0); TOTAL PROTEIN 6.3 g/dL (6.7-8.2)
--- NOTE | 2022-01-01 23:17 | ED Physician Documentation ---
PD HPI DYSPNEA - Stated complaint Stated Complaint: SOA - Chief complaint Chief Complaint: Cardiac - History obtained from History obtained from: Patient, Family (son by phone), EMS - History of Present Illness Timing - onset: Today Timing - onset during: Light activity Timing - duration: Weeks (3) Timing - details: Gradual onset, Still present, Waxing and waning Inciting event(s): Other (hx of CHF) Worsened by: Exertion, Laying flat Associated symptoms: No: Fever, Cough, Hemoptysis, Wheezing, Chest pain / discomfort, Palpitations, Diaphoresis, Bilateral edema, Unilateral edema, Anxiety Similar symptoms before: Diagnosis (CHF exacerbation and afib with RVR) Recently seen: Emergency Dept - Additional information Additional information: 86-year-old female with a history of congestive heart failure and atrial fibrillation has developed increased shortness of breath. She returned from [place] on 14 December and was seen at [facility] in [place] where she was diagnosed with atrial fibrillation with RVR and she failed cardioversion, was slowed with diltiazem and discharged. She was placed on increased diuretic as an outpatient by her animal geneticist, which she failed to obtain and on 21 December she was seen by Dr. Headley here in the emergency department with Waylon butler with RVR and exacerbation of congestive failure. At that time she was given a dose of Lasix IV and the diltiazem with improvement. The patient reports exertional dyspnea with minimal exertion and marked symptoms. Today she arrives to the emergency department with a positive suitcase sign. She has been on Eliquis for the past 4 to 5 years she has an allergy to iodine and most recently her D-dimer was negative. Review of Systems Constitutional: denies: Fever Eyes: denies: Decreased vision Ears: denies: Ear pain Nose: denies: Congestion Throat: denies: Sore throat Cardiac: reports: Chest pain / pressure. denies: Palpitations, Pedal edema, Calf pain Respiratory: reports: Dyspnea. denies: Cough, Wheezing GI: reports: Abdominal Pain. 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: Mastectomy - Present Medications Home Medications: Ambulatory Orders Medication Instructions Recorded Confirmed Metoprolol Succinate [Toprol Xl] 25 mg PO DAILY 05/17/15 01/02/22 Omeprazole 20 mg PO DAILY 05/17/15 01/02/22 Spironolactone 25 mg PO BID 05/17/15 01/02/22 Apixaban [Eliquis] 5 mg PO DAILY 10/21/18 01/02/22 - Allergies Allergies/Adverse Reactions: Allergies Allergy/AdvReac Type Severity Reaction Status Date / Time benzocaine Allergy Severe Hives Verified 12/20/21 23:11 iodine Allergy Unknown Verified 01/01/22 23:02 loratadine [From Claritin] Allergy Unknown Verified 01/01/22 23:02 codeine AdvReac Anaphylaxis Verified 12/20/21 23:11 - Social History Does the pt smoke?: No Smoking Status: Never smoker Does the pt drink ETOH?: No Does the pt have substance abuse?: No - Immunizations Immunizations are current?: No - POLST Patient has POLST: No PD ED PE NORMAL - Vitals Vital signs reviewed: Yes (hypertensive ) - General General: Alert and oriented X 3, Well developed/nourished, Other (dyspneic with talking) - HEENT HEENT: Atraumatic, PERRL, EOMI - Neck Neck: Supple, no meningeal sign, No bony TTP - Cardiac Cardiac: RRR, No murmur - Respiratory Respiratory: Other (tachypneic at rest with diminished breath sounds in the bases ) - Abdomen Abdomen: Soft, Non tender - Back Back: No CVA TTP, No spinal TTP - Derm Derm: Normal color, Warm and dry, No rash - Extremities Extremities: No deformity, No edema - Neuro Neuro: Alert and oriented X 3 (has a hard time remembering her medications ), product manager financial services 2-12 intact, No motor deficit, No sensory deficit, Normal speech Eye Opening: Spontaneous Motor: Obeys Commands Verbal: Oriented GCS Score: 15 - Psych Psych: Normal mood, Normal affect Results - Vitals Vitals: Vital Signs - 24 hr 01/01/22 01/01/22 01/02/22 22:47 23:30 01:00 Temperature 36.5 C Heart Rate 98 92 91 Respiratory 17 17 23 Rate Blood Pressure 105/86 H 94/61 84/66 L O2 Saturation 99 97 100 01/02/22 01/02/22 01/02/22 01:50 02:30 04:00 Temperature 36.6 C Heart Rate 85 81 91 Respiratory 16 20 20 Rate Blood Pressure 87/48 L 90/63 86/55 L O2 Saturation 100 99 100 01/02/22 01/02/22 01/02/22 04:33 04:45 05:12 Temperature Heart Rate 91 91 100 Respiratory 14 20 16 Rate Blood Pressure 76/66 L 97/48 L 99/89 H O2 Saturation 100 100 100 01/02/22 01/02/22 01/02/22 05:26 05:40 05:52 Temperature 36.7 C Heart Rate 93 110 H 95 Respiratory 18 34 H 25 H Rate Blood Pressure 92/78 111/51 L 98/74 O2 Saturation 100 99 99 01/02/22 01/02/22 01/02/22 05:58 06:01 06:08 Temperature 35.9 C L Heart Rate 83 63 68 Respiratory 25 H 14 23 Rate Blood Pressure 91/70 91/70 69/41 L O2 Saturation 98 99 98 01/02/22 01/02/22 01/02/22 06:28 06:31 06:39 Temperature 96.7 C H Heart Rate 76 65 71 Respiratory 22 21 19 Rate Blood Pressure 73/40 L 73/44 L 81/53 L O2 Saturation 97 100 100 01/02/22 01/02/22 06:47 06:59 Temperature 36.9 C Heart Rate 69 73 Respiratory 15 100 H Rate Blood Pressure 70/61 L 71/46 L O2 Saturation 100 100 Oxygen O2 Source Nasal cannula Oxygen Flow Rate 2 - EKG (time done) 2240 Rate: Rate (enter#) (99) Rhythm: Atrial fibrillation Ischemia: Q waves, Non specific changes Compare to prior EKG: Changed from prior EKG (SPT 12/21/21 the rhythm has changed back to Afib and the rate has slowed. ) Computer interpretation: Agree with computer - Labs Labs: Laboratory Tests 01/01/22 01/01/22 01/01/22 11:59 22:45 22:45 WBC 8.2 RBC 3.89 L Hgb 10.5 L Hct 32.4 L MCV 83.3 MCH 27.0 MCHC 32.4 RDW 13.9 Plt Count 287 MPV 9.6 Neut # (Auto) 4.2 Lymph # (Auto) 2.1 [place] # (Auto) 0.9 Eos # (Auto) 1.0 H Baso # (Auto) 0.1 Absolute Nucleated RBC 0.00 Nucleated RBC % 0.0 Sodium 131 L Potassium 4.5 Chloride 96 L Carbon Dioxide 23 Anion Gap 12.0 BUN 39 H Creatinine 1.6 H Estimated GFR (MDRD) 31 L Glucose 111 H Calcium 9.1 Total Bilirubin 1.3 H AST 56 H ALT 48 Alkaline Phosphatase 81 Troponin I High Sens B-Natriuretic Peptide Total Protein 6.3 L Albumin 3.8 Globulin 2.5 Albumin/Globulin Ratio 1.5 Lipase 41 Urine Color YELLOW Urine Clarity CLEAR Urine pH 5.5 Ur Specific [place] 1.010 Urine Protein NEGATIVE Urine Glucose (UA) NEGATIVE Urine Ketones NEGATIVE Urine Occult Blood SMALL H Urine Nitrite NEGATIVE Urine Bilirubin NEGATIVE Urine Urobilinogen 0.2 (NORMAL) Ur Leukocyte Esterase NEGATIVE Urine RBC 0-5 Urine WBC 0-3 Ur Squamous Epith Cells FEW Squamous Urine Bacteria Few Urine Casts 0-2 Hyaline Casts Ur Microscopic Review INDICATED Urine Culture Comments NOT INDICATED Nasal Adenovirus (PCR) Nasal B. parapertussis DNA (PCR) Nasal Coronavir 229E PCR Nasal Coronavir HKU1 PCR Nasal Coronavir NL63 PCR Nasal Coronavir OC43 PCR Nasal Enterovir/Rhinovir PCR Nasal Influenza B PCR Nasal Influenza A PCR Nasal Parainfluen 1 PCR Nasal Parainfluen 2 PCR Nasal Parainfluen 3 PCR Nasal Parainfluen 4 PCR Nasal RSV (PCR) Nasal B.pertussis DNA PCR Nasal C.pneumoniae (PCR) Eugenio Human Metapneumo PCR Nasal M.pneumoniae (PCR) Nasal SARS-CoV-2 (PCR) 01/01/22 01/01/22 01/02/22 22:45 22:45 01:10 WBC RBC Hgb Hct MCV MCH MCHC RDW Plt Count MPV Neut # (Auto) Lymph # (Auto) [place] # (Auto) Eos # (Auto) Baso # (Auto) Absolute Nucleated RBC Nucleated RBC % Sodium Potassium Chloride Carbon Dioxide Anion Gap BUN Creatinine Estimated GFR (MDRD) Glucose Calcium Total Bilirubin AST ALT Alkaline Phosphatase Troponin I High Sens 13.0 B-Natriuretic Peptide 1276 H Total Protein Albumin Globulin Albumin/Globulin Ratio Lipase Urine Color Urine Clarity Urine pH Ur Specific [place] Urine Protein Urine Glucose (UA) Urine Ketones Urine Occult Blood Urine Nitrite Urine Bilirubin Urine Urobilinogen Ur Leukocyte Esterase Urine RBC Urine WBC Ur Squamous Epith Cells Urine Bacteria Urine Casts Ur Microscopic Review Urine Culture Comments Nasal Adenovirus (PCR) NOT DETECTED Nasal B. parapertussis DNA (PCR) NOT DETECTED Nasal Coronavir 229E PCR NOT DETECTED Nasal Coronavir HKU1 PCR NOT DETECTED Nasal Coronavir NL63 PCR NOT DETECTED Nasal Coronavir OC43 PCR NOT DETECTED Nasal Enterovir/Rhinovir PCR NOT DETECTED Nasal Influenza B PCR NOT DETECTED Nasal Influenza A PCR NOT DETECTED Nasal Parainfluen 1 PCR NOT DETECTED Nasal Parainfluen 2 PCR NOT DETECTED Nasal Parainfluen 3 PCR NOT DETECTED Nasal Parainfluen 4 PCR NOT DETECTED Nasal RSV (PCR) NOT DETECTED Nasal B.pertussis DNA PCR NOT DETECTED Nasal C.pneumoniae (PCR) NOT DETECTED Eugenio Human Metapneumo PCR NOT DETECTED Nasal M.pneumoniae (PCR) NOT DETECTED Nasal SARS-CoV-2 (PCR) NOT DETECTED 01/02/22 07:44 WBC 7.5 RBC 3.81 L Hgb 10.2 L Hct 32.1 L MCV 84.3 MCH 26.8 L MCHC 31.8 L RDW 13.8 Plt Count 259 MPV 9.5 Neut # (Auto) 4.8 Lymph # (Auto) 1.6 [place] # (Auto) 0.9 Eos # (Auto) 0.1 Baso # (Auto) 0.0 Absolute Nucleated RBC 0.00 Nucleated RBC % 0.0 Sodium Potassium Chloride Carbon Dioxide Anion Gap BUN Creatinine Estimated GFR (MDRD) Glucose Calcium Total Bilirubin AST ALT Alkaline Phosphatase Troponin I High Sens B-Natriuretic Peptide Total Protein Albumin Globulin Albumin/Globulin Ratio Lipase Urine Color Urine Clarity Urine pH Ur Specific [place] Urine Protein Urine Glucose (UA) Urine Ketones Urine Occult Blood Urine Nitrite Urine Bilirubin Urine Urobilinogen Ur Leukocyte Esterase Urine RBC Urine WBC Ur Squamous Epith Cells Urine Bacteria Urine Casts Ur Microscopic Review Urine Culture Comments Nasal Adenovirus (PCR) Nasal B. parapertussis DNA (PCR) Nasal Coronavir 229E PCR Nasal Coronavir HKU1 PCR Nasal Coronavir NL63 PCR Nasal Coronavir OC43 PCR Nasal Enterovir/Rhinovir PCR Nasal Influenza B PCR Nasal Influenza A PCR Nasal Parainfluen 1 PCR Nasal Parainfluen 2 PCR Nasal Parainfluen 3 PCR Nasal Parainfluen 4 PCR Nasal RSV (PCR) Nasal B.pertussis DNA PCR Nasal C.pneumoniae (PCR) Eugenio Human Metapneumo PCR Nasal M.pneumoniae (PCR) Nasal SARS-CoV-2 (PCR) - Rads (name of study) chest Radiology: Prelim report reviewed (Impression: Bilateral interstitial infiltrates and small pleural effusion suspicious for pulmonary edema. A differential diagnosis is bilateral pneumonia.), EMP read indepedently, See rad report Procedures - IVC sono (time) 50618 Bedside IVC sono: IVC measures (cm) (2.3), IVC collapsed c insp (cm) (2.3), High CVP, Fluid overload PD MEDICAL DECISION MAKING - ED course Complexity details: reviewed results, re-evaluated patient, considered differential, d/w patient, d/w family ED course: 86-year-old female with a history of atrial fibrillation and congestive heart failure has presented to [facility] in [place] on 12-17-21, she is anticoagulated with atrial fibrillation and had a rapid rate. She failed cardioversion and her rate was reduced by diltiazem and she was sent home. Her BNP that night was 867. She was given a prescription for Lasix by her animal geneticist Dr. Easley which she had not filled and ended up returning to the emergency department here at [facility] on 20 December. She was found to be in at rapid atrial fibrillation with failure and Dr. Headley treated the patient with Lasix and Cardizem. The patient converted into a sinus rhythm and diuresed. She has had persistence of this shortness of breath that she has had since she has been in [place] and this seems worse tonight. I asked the patient again tonight if she had been taking Lasix and she said no. Here in the emergency department her IVC is plethoric at 2.3cm and she is administered IV lasix. Her chest again demonstrates the CHF maybe improved from her prior. Her BNP was 574 when she was here on the and on the 13 it is 1276. She gives out about 700ml and she is administered additional IV lasix with a reduction in her blood pressure requiring a bolus of 300ml saline. She develops some epigastric chest pain that is improved with the GI cocktail and she is administered carafate as well. She has resolution of the chest pain. She indicates she has heart burn that is severe if she does not take her omeprezole. She has been having these for more than 3 wks. No exertional component and unrelated to her dyspnea. Dr. Mari is consulted in the case and recommends a road test which the patient fails miserably. Despite a raise in the respiratory rate to 34 and the heart rate to 120 the patient did not become hypoxic. She took some time to recover and her blood pressure was 111/51 and we took this oportunity to slow the heart with dilat and administered 10g IV with a reduction of the heart rate into the 70's and a blood pressure reduction to 69/41 and she is infused another 300ml saline. Dr. Mari has graciously agreed to admit the patient to the hospital for further treatment. Ultimately if may not be diuresis the patient requires. Departure - Departure Disposition: ED Place in Observation Clinical Impression: CHF exacerbation Qualifiers: Heart failure type: unspecified Qualified Code(s): I50.9 - Heart failure, unspecified Reflux esophagitis Qualifiers: Esophagitis bleeding: without hemorrhage Qualified Code(s): K21.00 - Gastro- esophageal reflux disease with esophagitis, without bleeding Condition: Serious
[2022-01-01] MEDS ORDERED: FUROSEMIDE 40 MG/4 ML VIAL IVP STA (23:39)
--- NOTE | 2022-01-01 23:47 | XRAY Report ---
PROCEDURE: Chest 1 View X-Ray INDICATIONS: chest pain TECHNIQUE: One view of the chest was acquired. COMPARISON: Chest x-ray, one view, 12/20/2021 and 04/05/2020. FINDINGS: Surgical changes and devices: None. Lungs and pleura: Bilateral interstitial infiltrates. Small pleural effusions are present bilaterall y. No pleural pneumothorax. Mediastinum: Mediastinal contours appear normal. Heart size is normal. Bones and chest wall: No suspicious bony lesions. Note right humeral neck fracture. Overlying soft tissues appear unremarkable. IMPRESSION: Bilateral interstitial infiltrates and small pleural effusions suspicious for pulmonary edema. A diff erential diagnosis is bilateral pneumonia. Reviewed by: Bel Stanley MD on 01/01/2022 11:45 PM PST Approved by: Bel Stanley MD on 01/01/2022 11:45 PM PST Station ID: [id number]
[2022-01-02 00:41] LABS: BILIRUBIN,URINE NEGATIVE (NEGATIVE); GLUCOSE, URINE (UA) NEGATIVE (NEGATIVE); KETONES,URINE (UA) NEGATIVE (NEGATIVE); LEUKOCYTE ESTERASE, URINE NEGATIVE (NEGATIVE); NITRITE,URINE NEGATIVE (NEGATIVE); OCCULT BLOOD,URINE SMALL (NEGATIVE); PH,URINE 5.5 PH (5.0-7.5); PROTEIN,URINE NEGATIVE (NEGATIVE); UROBILINOGEN,URINE 0.2 (NORMAL) E.U./dL (NORMAL)
[2022-01-02 00:53] LABS: CLARITY,URINE CLEAR (CLEAR)
[2022-01-02 00:54] LABS: BACTERIA,URINE Few /HPF (None Seen); CASTS, URINE 0-2 Hyaline Casts /LPF; RBC,URINE 0-5 /HPF (0-5); SQUAMOUS EPITHELIAL CELL,UR FEW Squamous (<= Few); WBC,URINE 0-3 /HPF (0-5)
[2022-01-02] MEDS ORDERED: LIDOCAINE VISCOUS 2% 15 ML UDC MM STA (01:58)
[2022-01-02] MEDS ORDERED: MAG HYDROX/AL HYDROX/SIMETH 30 ML UDC PO STA (01:58)
[2022-01-02 02:04] LABS: B. PARAPERTUSSIS- RESP PCR PAN NOT DETECTED; B. PERTUSSIS- RESP PCR PANEL NOT DETECTED; C. PNEUMONIAE- RESP PCR PANEL NOT DETECTED; CORONAVIRUS 229E-RESP PCR NOT DETECTED; CORONAVIRUS HKU1-RESP PCR NOT DETECTED; CORONAVIRUS NL63-RESP PCR NOT DETECTED; CORONAVIRUS OC43-RESP PCR NOT DETECTED; HUMAN METAPNEUMOVIRUS NOT DETECTED; INFLUENZA A- RESP PCR PANEL NOT DETECTED; INFLUENZA B - RESP PCR PANEL NOT DETECTED; M. PNEUMONIAE- RESP PCR PANEL NOT DETECTED; PARAINFLUENZA VIRUS 1 NOT DETECTED; PARAINFLUENZA VIRUS 2 NOT DETECTED; PARAINFLUENZA VIRUS 3 NOT DETECTED; PARAINFLUENZA VIRUS 4 NOT DETECTED; RHINOVIRUS/ENTEROVIRUS NOT DETECTED; RSV- RESP PCR PANEL NOT DETECTED; SARS-CoV-2 -RESP PCR PANEL NOT DETECTED
[2022-01-02] MEDS ORDERED: FUROSEMIDE 100 MG/10 ML VIAL IVP STA (02:42)
[2022-01-02] MEDS ORDERED: SUCRALFATE 1 GM/10 ML UDC PO STA (02:42)
[2022-01-02] MEDS ORDERED: SODIUM CHLORIDE 0.9% 300 ML IV STA (04:59)
[2022-01-02] MEDS: SODIUM CHLORIDE 0.9% 300 ML IV STA ×2 (05:44→06:08)
[2022-01-02] MEDS ORDERED: diltiaZEM INJ 5 MG/ML VIAL IVP STA (05:45)
[2022-01-02] MEDS ORDERED: ACETAMINOPHEN 325 MG TABLET PO STA (06:20)
[2022-01-02] MEDS ORDERED: SODIUM CHLORIDE FLUSH 0.9% 10 ML SYRINGE IVP PRN (07:23)
[2022-01-02] MEDS ORDERED: ONDANSETRON 4 MG/2 ML VIAL IVP PRN (07:23)
--- NOTE | 2022-01-02 07:33 | HISTORY & PHYSICAL EXAMINATION ---
Chief Complaint - Chief Complaint Chief Complaint: dyspnea History of Present Illness - Admitted From Admitted From:: [facility] ED - History Obtained From Records Reviewed: yes History obtained from: ED provider's note Exam Limitations: poor historian, forgetful - History of Present Illness HPI Comment/Other: The account below is obtained from the HPI of the ED provider Dr. Giles's H&P because the patient is a poor historian and forgetful. Thus she is unable to provide a reliable history. 86-year-old female with a history of congestive heart failure and atrial fibrillation has developed increased shortness of breath. She returned from [place] on 14 December and was seen at [facility] in [place] where she was diagnosed with atrial fibrillation with RVR and she failed cardioversion, was slowed with diltiazem and discharged. She was placed on increased diuretic as an outpatient by her supply teacher, which she failed to obtain and on 21 December she was seen by Dr. Headley here in the emergency department with A. luke with RVR and exacerbation of congestive failure. At that time she was given a dose of La six IV and the diltiazem with improvement. The patient reports exertional dyspnea with minimal exertion and marked symptoms. Today she arrives to the emergency department with a positive suitcase sign. She has been on Eliquis for the past 4 to 5 years she has an allergy to iodine and most recently her D-dimer was negative. Received a total of 120 mg of Lasix IV in the ED. This resulted in a s ignificant drop in her blood pressure to a systolic blood pressure of 70s. As a result gentle IV hydration was initiated and she was presented for admission for further treatment. At bedside upon arrival to the [facility] floor she was resting comfortably. She had mild conversational dyspnea however when asked she denied shortness of breath. She however reported significant dyspnea on exertion. She denied chest pain, abdominal pain, nausea, vomiting, fever or chills. 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 - POLST Patient has POLST: No POLST Status: Full Code Meds/Allgy - Home Medications Home Medications: Ambulatory Orders Medication Instructions Recorded Confirmed Metoprolol Succinate [Toprol Xl] 25 mg PO DAILY 05/17/15 01/02/22 Omeprazole 20 mg PO QDAC 05/17/15 01/02/22 Apixaban [Eliquis] 2.5 mg PO BID 01/02/22 01/02/22 Furosemide [Lasix] 20 mg PO DAILY 01/02/22 01/02/22 Potassium Chloride [K-Dur] 20 meq PO 0800 01/02/22 01/02/22 QUEtiapine [SEROquel] 25 mg PO QPM 01/02/22 01/02/22 Timolol 0.5% Ophth Drops [Timoptic 1 drops EACHEYE BID 01/02/22 01/02/22 0.5% Ophth Drops] hydroCHLOROthiazide [Hydrodiuril] 12.5 mg PO DAILY 01/02/22 01/02/22 traZODone [Desyrel] 50 mg PO HS 01/02/22 01/02/22 - Allergies Allergies/Adverse Reactions: Allergies Allergy/AdvReac Type Severity Reaction Status Date / Time benzocaine Allergy Severe Hives Verified 12/20/21 23:11 iodine Allergy Unknown Verified 01/01/22 23:02 loratadine [From Claritin] Allergy Unknown Verified 01/01/22 23:02 codeine AdvReac Anaphylaxis Verified 12/20/21 23:11 Review of Systems - Constitutional Constitutional: reports: Weakness. denies: Fever, Chills - Eyes Eyes: denies: Pain, Dipolpia - Ears, Nose & Throat Ears, Nose & Throat: denies: Ear pain, Sore throat - Cardiovascular Cariovascular: reports: Irregular heart rate, Exertional dyspnea. denies: Palpitations, Chest pain, Edema, Lightheadedness, Syncope - Respiratory Respiratory: reports: Cough, Orthopnea, SOB at rest, SOB with exertion. denies: Sputum production, Wheezing - Gastrointestinal Gastrointestinal: denies: Abdominal pain, Abdominal distention, Constipation, Diarrhea, Nausea, Vomiting, Reflux/heartburn - Genitourinary Genitourinary: denies: Dysuria, Frequency, Urgency, Hematuria - Musculoskeletal Musculoskeletal: denies: Muscle pain, Back pain, Muscle aches, Stiffness - Integumentary Integumentary: denies: Rash, Pruritis, Lesions - Neurological Neurological: denies: Focal weakness - Psychiatric Psychiatric: denies: Depression, Anxiety - Endocrine Endocrine: denies: Polyuria, Polydypsia - Hematologic/Lymphatic Hematologic/Lymphatic: denies: Anemia, Bruising, Petechiae Prior Level of Functionality: She reports being very independent of activities of daily living and being very active. She ambulates without a walking aid. Exam - Vital Signs Vital Signs: Vital Signs x48h Temp Pulse Resp BP Pulse Ox 01/02/22 06:59 73 100 H 71/46 L 100 01/02/22 06:47 36.9 C 69 15 70/61 L 100 01/02/22 06:39 96.7 C H 71 19 81/53 L 100 01/02/22 06:31 65 21 73/44 L 100 01/02/22 06:28 76 22 73/40 L 97 01/02/22 06:08 68 23 69/41 L 98 01/02/22 06:01 35.9 C L 63 14 91/70 99 01/02/22 05:58 83 25 H 91/70 98 01/02/22 05:52 95 25 H 98/74 99 01/02/22 05:40 110 H 34 H 111/51 L 99 01/02/22 05:26 36.7 C 93 18 92/78 100 01/02/22 05:12 100 16 99/89 H 100 01/02/22 04:45 91 20 97/48 L 100 01/02/22 04:33 91 14 76/66 L 100 01/02/22 04:00 36.6 C 91 20 86/55 L 100 01/02/22 02:30 81 20 90/63 99 01/02/22 01:50 85 16 87/48 L 100 01/02/22 01:00 91 23 84/66 L 100 - Physical Exam General Appearance: positive: Mild distress (dyspnea) Eyes Bilateral: positive: PERRL, EOMI ENT: positive: No signs of dehydration Neck: positive: No JVD, Trachea midline Respiratory: positive: Chest non-tender, Other (Mild respiratory distress, Mild conversational dyspnea) Cardiovascular: positive: Irregularly irregular Abdomen: positive: Non-tender, No organomegaly, Nml bowel sounds, No distention. negative: Guarding, Rebound Back: positive: Nml inspection Skin: positive: Color nml, No rash, Warm, Dry Extremities: positive: Non-tender, Full ROM, No pedal edema Neurologic/Psychiatric: positive: Oriented x3 (but forgetful), Mood/affect nml Conclusion/Plan - Problem List (1) CHF exacerbation Conclusion/Plan: Due to medical noncompliance as a result of forgetfulness. Patient is supposed to be on metoprolol 25 mg p.o. daily Lasix 20 mg p.o. daily. She has not filled out the prescription of Lasix prescribed. BNP was 1276. Troponin was 13 with repeat of 11.9 She was given a total of Lasix 120 mg IV in the ED. She had a significant decrease in her systolic blood pressure as a result. Blood pressure dropped to the 70s. She is gently being hydrated with normal saline. When systolic blood pressure is 100 or greater will discontinue fluids. 2D echocardiogram pending. We will discuss findings with patient's supply teacher Dr. Barton Addendum 2D echocardiogram done on 01/02/2022 showed a left ventricular systolic function which was severely globally impaired with an ejection fraction of 20 to 25%. As compared to the prior echocardiogram done in September 2019 the left ventricular systolic function had dramatically decreased. The right ventricular systolic function was moderately impaired. There was no evidence of aortic stenosis or aortic regurgitation. There was no mitral stenosis. 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 The mitral regurgitation is predominantly centrally directed jet. Moderate tricuspid regurgitation. Mild to moderately abnormal right heart pressures with RVSP at rest of 49 mmHg. There was no mass or thrombus. There was a medium sized left pleural effusion. The patient's supply teacher is Dr. Barton. She also read the 2D echocardiogram. I discussed the patient's case with her. She recommended transferring the patient to [facility] under cardiology service. However there is currently no bed availability and the patient was placed at #7 on their waiting list. I have not yet spoken to a supply teacher clinical liaison. She advised resuming patient's Lasix and metoprolol and possibly adding digoxin. Lasix 20 mg p.o. daily and metoprolol Succinate 25 mg p.o. daily resumed. Digoxin 125 mg p.o. daily was added. Digoxin level was ordered for 01/04/2022 I also resumed the patient's Eliquis. Initially I had contacted interventional radiology about a possible thoracente sis. However, even though the 2D echocardiogram read moderate pleural effusion, it is only read as small pleural effusions on chest x-ray. Also the patient's oxygen saturation was 99% on room air while at rest. As a result, I canceled the idea of thoracentesis. Qualifiers: Heart failure type: unspecified Qualified Code(s): I50.9 - Heart failure, unspecified (2) Hypotension Conclusion/Plan: Iatrogenic. Patient received a total of Lasix 120 mg IV in the ED. Systolic blood pressure dropped to the 70s. Patient is gently being hydrated with normal saline currently. When systolic blood pressure improved to at least 100 we will discontinue fluids. We will hold metoprolol and further administration of Lasix for now. (3) Atrial fibrillation with rapid ventricular response Conclusion/Plan: She received a dose of diltiazem 10 mg IV x1. Heart rate fluctuates between 80s and 100. We will hold metoprolol for now. Patient is supposed to be on Eliquis. Will verify dosage with supply teacher office. - Lab Results Fish Bones: 01/02/22 07:44 01/02/22 07:44 Core Measures - Anticipated LOS I expect patient to be DC'd or transferred within 96 hours.: Yes - DVT/VTE - Prophylaxis VTE/DVT Device ordered at admit?: Yes VTE/DVT Prophylaxis med ordered at admit?: Yes
[2022-01-02 07:48] LABS: BASOPHILS % (AUTO) 0.5 %; EOSINOPHILS # (AUTO) 0.1 10^3/uL (0.0-0.7); EOSINOPHILS % (AUTO) 1.3 %; HCT - HEMATOCRIT 32.1 % (37.0-47.0); HGB - HEMOGLOBIN 10.2 g/dL (12.0-16.0); LYMPHOCYTES # (AUTO) 1.6 10^3/uL (1.5-3.5); LYMPHOCYTES % (AUTO) 21.5 %; MEAN CORPUSCULAR HEMOGLOBIN 26.8 pg (27.0-31.0); MEAN CORPUSCULAR HGB CONC 31.8 g/dL (32.0-36.0); MEAN CORPUSCULAR VOLUME 84.3 fL (81.0-99.0); MEAN PLATELET VOLUME 9.5 fL (7.9-10.8); MONOCYTES # (AUTO) 0.9 10^3/uL (0.0-1.0); MONOCYTES % (AUTO) 11.6 %; NEUTROPHILS # (AUTO) 4.8 10^3/uL (1.5-6.6); NEUTROPHILS % (AUTO) 64.8 %; PLT - PLATELET COUNT 259 10^3/uL (130-450); RED BLOOD COUNT 3.81 10^6/uL (4.20-5.40); RED CELL DISTRIBUTION WIDTH 13.8 % (12.0-15.0); WHITE BLOOD COUNT 7.5 x10^3/uL (4.8-10.8)
[2022-01-02 07:59] LABS: CALCIUM 8.8 mg/dL (8.5-10.3); CREATININE 1.7 mg/dL (0.4-1.0)
[2022-01-02] MEDS ORDERED: SODIUM CHLORIDE 0.9% 1,000 ML IV SCH (08:00)
[2022-01-02] MEDS: SODIUM CHLORIDE FLUSH 0.9% 10 ML SYRINGE IVP SCH ×2 (11:10→16:08)
[2022-01-02] MEDS: ACETAMINOPHEN 325 MG TABLET PO PRN (11:14)
--- NOTE | 2022-01-02 11:34 | PHARMACY PROGRESS NOTE ---
- Best Possible Medication History Admit Date and Time: 01/02/22722 Processed by: Pharmacy Medication History completed: Yes Secondary Source(s): Physician records, Pharmacy records, Insurance records As the person ultimately responsible for medication therapy, providers are able to order a medication from an existing home medication list in [facility] via the "Reconcile Routine" prior to Confirmation of that medication by it support technician. Such practice is discouraged except when the physician, in their clinical judgment, deems that a medical need exists for a medication without regard to previous use.
[2022-01-02 16:06] LABS: INR 1.5 (0.8-1.2); PT - PROTHROMBIN TIME 16.6 secs (9.9-12.6)
[2022-01-02] MEDS ORDERED: DIGOXIN 125 MCG TABLET PO STA (16:46)
[2022-01-02] MEDS: traZODone 50 MG TABLET PO SCH (20:54)
[2022-01-02] MEDS: QUEtiapine 25 MG TABLET PO SCH (20:54)
[2022-01-02] MEDS: APIXABAN 2.5 MG TABLET PO SCH (20:54)
[2022-01-02] MEDS: TIMOLOL 0.5% OPHTH DROPS EACHEYE SCH (20:54)
[2022-01-02] MEDS ORDERED: CALCIUM CARBONATE CHEW 500 MG TABLET PO PRN (22:24)
[2022-01-03] MEDS: SODIUM CHLORIDE FLUSH 0.9% 10 ML SYRINGE IVP SCH ×3 (00:40→20:52)
--- NOTE | 2022-01-03 08:02 | PROVIDER PROGRESS NOTE ---
Subjective - Prog Note Date Prog Note Date: 01/03/22 - Subjective Subjective: She feels improved as she is able to walk a little further before becoming short of breath. She has an occasional cough. No chest pain or lower extremity edema. Current Medications - Current Medications Current Medications: Active Medications Acetaminophen (Acetaminophen 325 Mg Tablet) 650 mg PO Q4HR PRN PRN Reason: Pain 1 to 4 Last Admin: 01/02/22 11:14 Dose: 650 mg Apixaban (Apixaban 2.5 Mg Tablet) 2.5 mg PO BID [facility] Last Admin: 01/02/22 20:54 Dose: 2.5 mg Calcium Carbonate/Glycine (Calcium Carbonate Chew 500 Mg Tablet) 500 mg PO TID PRN PRN Reason: Heartburn Last Admin: 01/02/22 22:33 Dose: 500 mg Digoxin (Digoxin 125 Mcg Tablet) 125 mcg PO DAILY [facility] Furosemide (Furosemide 40 Mg/4 Ml Vial) 40 mg IVP DAILY [facility] Metoprolol Succinate (Metoprolol Succinate 25 Mg Tablet) 25 mg PO DAILY [facility] Ondansetron HCl (Ondansetron 4 Mg/2 Ml Vial) 4 mg IVP Q6HR PRN PRN Reason: Nausea / Vomiting Potassium Chloride (Potassium Chloride 20 Meq Tablet) 20 meq PO 0800 [facility] Quetiapine Fumarate (Quetiapine 25 Mg Tablet) 25 mg PO QPM [facility] Last Admin: 01/02/22 20:54 Dose: 25 mg Sodium Chloride (Sodium Chloride Flush 0.9% 10 Ml Syringe) 10 ml IVP PRN PRN PRN Reason: NEEDED PER PROVIDER ORDERS Sodium Chloride (Sodium Chloride Flush 0.9% 10 Ml Syringe) 10 ml IVP 0100,0900,1700 [facility] Last Admin: 01/03/22 00:40 Dose: 10 ml Timolol Maleate (Timolol 0.5% Ophth Drops) 1 drops EACHEYE BID [facility] Last Admin: 01/02/22 20:54 Dose: 1 drops Trazodone HCl (Trazodone 50 Mg Tablet) 50 mg PO HS [facility] Last Admin: 01/02/22 20:54 Dose: 50 mg Metoprolol Succinate [Toprol Xl] 25 mg PO DAILY 05/17/15 Omeprazole 20 mg PO QDAC 05/17/15 Apixaban [Eliquis] 2.5 mg PO BID 01/02/22 Furosemide [Lasix] 20 mg PO DAILY 02/14/22 Potassium Chloride [K-Dur] 20 meq PO 0800 01/02/22 QUEtiapine [SEROquel] 25 mg PO QPM 01/02/22 Timolol 0.5% Ophth Drops [Timoptic 0.5% Ophth Drops] 1 drops EACHEYE BID 01/02/22 hydroCHLOROthiazide [Hydrodiuril] 12.5 mg PO DAILY 01/02/22 traZODone [Desyrel] 50 mg PO HS 01/02/22 Objective - Vital Signs/Intake & Output Reviewed Vital Signs: Yes Vital Signs: Vital Signs x48h Temp Pulse Resp BP Pulse Ox 01/03/22 06:16 36.3 C L 88 17 92/62 99 Intake & Output: Intake & Output 12/31/21 01/01/22 01/02/22 01/03/22 23:59 23:59 23:59 23:59 Intake Total 1728.333 200 Output Total 1200 Balance 528.333 200 - Objective General Appearance: positive: No acute distress, Alert Eyes Bilateral: positive: Normal inspection, Conjunctivae nml ENT: positive: ENT inspection nml Neck: positive: Nml inspection Respiratory: positive: No respiratory distress, Rales. negative: Wheezes, Rhonchi Cardiovascular: positive: Irregularly irregular. negative: Tachycardia Abdomen: positive: Non-tender, No distention. negative: Tenderness Skin: positive: Warm, Dry Extremities: positive: No pedal edema Neurologic/Psychiatric: positive: Motor nml. negative: Disoriented to person, Disoriented to place - Lab Results Fish Bones: 01/02/22 07:44 01/03/22 08:05 Other Labs: Lab Results x24hrs 01/02/22 01/02/22 01/02/22 Range/Units 15:54 13:34 07:44 PT 16.6 H (9.9-12.6) secs INR 1.5 H (0.8-1.2) Troponin I High Sens 10.4 11.9 (2.3-14.8) ng/L Assessment/Plan - Problem List (1) Acute on chronic systolic CHF (congestive heart failure) Impression: This is improved but ongoing. Her echocardiogram revealed an ejection fraction of approximately 25%. Her chest x-ray is consistent with pulmonary edema and her BNP on admission was 1200. She has been diuresed with improvement of her dyspnea but it is still present with activity. We will give another dose of Lasix 40 mg IV today. We will continue digoxin and metoprolol. Continue low- sodium diet. Check daily weights. Strict I's and O's. My colleague spoke with Dr. Barton of cardiology yesterday and she recommended transfer to [facility] for further cardiac work-up. The patient is on the wait list and we are hopeful she will be able to be transferred later today or tomorrow. (2) Atrial fibrillation with rapid ventricular response Impression: She initially presented with rapid ventricular response but is now rate controlled with metoprolol. We will continue Toprol 25 mg daily. If needed, we can increase this further as I believe her blood pressure will tolerate it. Co ntinue digoxin. Continue Eliquis. (3) Acute kidney injury Impression: This was likely cardiorenal in nature. Her creatinine peaked at 1.7 and today it is decreased to 1.3. Her baseline is approximately 1.1. We will continue IV diuresis. We will hold off on initiating lisinopril. Avoid nephrotoxins. (4) Hyponatremia Impression: Her sodium is decreased at 132 this is likely secondary to her heart failure. We will continue IV diuresis. Check sodium on a daily basis. (5) Hypotension Impression: She was hypotensive yesterday with systolics in the 80s likely due to the diltiazem and IV Lasix she received. She was hydrated yesterday and her systolic blood pressures have been stable in the 90s systolic. She is asymptomatic with this blood pressure. We will resume IV diuresis and continue the current dose of metoprolol. We will continue to monitor her blood pressure closely. (6) GERD (gastroesophageal reflux disease) Impression: Stable. We will continue Protonix.
[2022-01-03 08:23] LABS: BASOPHILS % (AUTO) 0.8 %; EOSINOPHILS # (AUTO) 0.1 10^3/uL (0.0-0.7); EOSINOPHILS % (AUTO) 2.9 %; HCT - HEMATOCRIT 29.3 % (37.0-47.0); HGB - HEMOGLOBIN 9.3 g/dL (12.0-16.0); LYMPHOCYTES # (AUTO) 1.4 10^3/uL (1.5-3.5); LYMPHOCYTES % (AUTO) 28.1 %; MEAN CORPUSCULAR HEMOGLOBIN 26.6 pg (27.0-31.0); MEAN CORPUSCULAR HGB CONC 31.7 g/dL (32.0-36.0); MEAN CORPUSCULAR VOLUME 83.7 fL (81.0-99.0); MEAN PLATELET VOLUME 9.6 fL (7.9-10.8); MONOCYTES # (AUTO) 0.6 10^3/uL (0.0-1.0); MONOCYTES % (AUTO) 12.1 %; NEUTROPHILS # (AUTO) 2.7 10^3/uL (1.5-6.6); NEUTROPHILS % (AUTO) 55.7 %; PLT - PLATELET COUNT 224 10^3/uL (130-450); RED CELL DISTRIBUTION WIDTH 14.1 % (12.0-15.0); WHITE BLOOD COUNT 4.9 x10^3/uL (4.8-10.8)
[2022-01-03 08:29] LABS: CALCIUM 8.8 mg/dL (8.5-10.3); CREATININE 1.3 mg/dL (0.4-1.0); POTASSIUM 3.9 mmol/L (3.5-5.0)
[2022-01-03] MEDS ORDERED: FUROSEMIDE 20 MG TABLET PO SCH (09:00)
[2022-01-03] MEDS ORDERED: FUROSEMIDE 40 MG/4 ML VIAL IVP SCH (09:00)
[2022-01-03] MEDS ORDERED: hydroCHLOROthiazide 12.5 MG CAPSULE PO SCH (09:00)
[2022-01-03] MEDS: DIGOXIN 125 MCG TABLET PO SCH (09:45)
[2022-01-03] MEDS: POTASSIUM CHLORIDE 20 MEQ TABLET PO SCH (09:45)
[2022-01-03] MEDS: APIXABAN 2.5 MG TABLET PO SCH ×2 (09:45→20:52)
[2022-01-03] MEDS: METOPROLOL SUCCINATE 25 MG TABLET PO SCH (09:45)
[2022-01-03] MEDS: TIMOLOL 0.5% OPHTH DROPS EACHEYE SCH ×2 (09:47→20:52)
[2022-01-03] MEDS: PANTOPRAZOLE 40 MG TABLET PO SCH (09:58)
[2022-01-03] MEDS: ACETAMINOPHEN 325 MG TABLET PO PRN ×3 (10:31→22:39)
[2022-01-03] MEDS ORDERED: SODIUM CHLORIDE 0.9% 500 ML IV ONE ×2 (11:17→16:01)
[2022-01-03] MEDS: QUEtiapine 25 MG TABLET PO SCH (20:52)
[2022-01-03] MEDS: traZODone 50 MG TABLET PO SCH (20:52)
[2022-01-04] MEDS: ACETAMINOPHEN 325 MG TABLET PO PRN (04:31)
[2022-01-04 05:49] LABS: BASOPHILS % (AUTO) 0.8 %; EOSINOPHILS # (AUTO) 0.2 10^3/uL (0.0-0.7); EOSINOPHILS % (AUTO) 3.2 %; HCT - HEMATOCRIT 30.1 % (37.0-47.0); HGB - HEMOGLOBIN 9.4 g/dL (12.0-16.0); LYMPHOCYTES # (AUTO) 1.7 10^3/uL (1.5-3.5); LYMPHOCYTES % (AUTO) 32.4 %; MEAN CORPUSCULAR HEMOGLOBIN 26.4 pg (27.0-31.0); MEAN CORPUSCULAR HGB CONC 31.2 g/dL (32.0-36.0); MEAN CORPUSCULAR VOLUME 84.6 fL (81.0-99.0); MEAN PLATELET VOLUME 9.4 fL (7.9-10.8); MONOCYTES # (AUTO) 0.7 10^3/uL (0.0-1.0); MONOCYTES % (AUTO) 13.9 %; NEUTROPHILS # (AUTO) 2.6 10^3/uL (1.5-6.6); NEUTROPHILS % (AUTO) 48.9 %; PLT - PLATELET COUNT 223 10^3/uL (130-450); RED BLOOD COUNT 3.56 10^6/uL (4.20-5.40); RED CELL DISTRIBUTION WIDTH 13.8 % (12.0-15.0); WHITE BLOOD COUNT 5.2 x10^3/uL (4.8-10.8)
[2022-01-04 05:58] LABS: CALCIUM 8.6 mg/dL (8.5-10.3); CREATININE 1.3 mg/dL (0.4-1.0); POTASSIUM 4.3 mmol/L (3.5-5.0)
[2022-01-04 06:06] LABS: DIGOXIN 0.3 ng/mL
[2022-01-04] MEDS: PANTOPRAZOLE 40 MG TABLET PO SCH (06:22)
--- NOTE | 2022-01-04 08:54 | PROVIDER PROGRESS NOTE ---
Subjective - Prog Note Date Prog Note Date: 01/04/22 - Subjective Subjective: She feels improved each day. Still dyspneic with activity but she is able to ambulate more before becoming short of breath. Still has an occasional cough. Current Medications - Current Medications Current Medications: Active Medications Acetaminophen (Acetaminophen 325 Mg Tablet) 650 mg PO Q4HR PRN PRN Reason: Pain 1 to 4 Last Admin: 01/04/22 04:31 Dose: 650 mg Apixaban (Apixaban 2.5 Mg Tablet) 2.5 mg PO BID [facility] Last Admin: 01/03/22 20:52 Dose: 2.5 mg Calcium Carbonate/Glycine (Calcium Carbonate Chew 500 Mg Tablet) 500 mg PO TID PRN PRN Reason: Heartburn Last Admin: 01/02/22 22:33 Dose: 500 mg Digoxin (Digoxin 125 Mcg Tablet) 125 mcg PO DAILY [facility] Last Admin: 01/03/22 09:45 Dose: 125 mcg Furosemide (Furosemide 40 Mg Tablet) 40 mg PO DAILY [facility] Metoprolol Succinate (Metoprolol Succinate 25 Mg Tablet) 25 mg PO DAILY [facility] Last Admin: 01/03/22 09:45 Dose: 25 mg Ondansetron HCl (Ondansetron 4 Mg/2 Ml Vial) 4 mg IVP Q6HR PRN PRN Reason: Nausea / Vomiting Pantoprazole Sodium (Pantoprazole 40 Mg Tablet) 40 mg PO QDAC [facility] Last Admin: 01/04/22 06:22 Dose: 40 mg Potassium Chloride (Potassium Chloride 20 Meq Tablet) 20 meq PO 0800 [facility] Last Admin: 01/03/22 09:45 Dose: 20 meq Quetiapine Fumarate (Quetiapine 25 Mg Tablet) 25 mg PO QPM [facility] Last Admin: 01/03/22 20:52 Dose: 25 mg Sodium Chloride (Sodium Chloride Flush 0.9% 10 Ml Syringe) 10 ml IVP PRN PRN PRN Reason: NEEDED PER PROVIDER ORDERS Sodium Chloride (Sodium Chloride Flush 0.9% 10 Ml Syringe) 10 ml IVP 0100,0900,1700 [facility] Last Admin: 01/04/22 00:00 Dose: 10 ml Timolol Maleate (Timolol 0.5% Ophth Drops) 1 drops EACHEYE BID [facility] Last Admin: 01/03/22 20:52 Dose: 1 drops Trazodone HCl (Trazodone 50 Mg Tablet) 50 mg PO HS [facility] Last Admin: 01/03/22 20:52 Dose: 50 mg Metoprolol Succinate [Toprol Xl] 25 mg PO DAILY 05/17/15 Omeprazole 20 mg PO QDAC 05/17/15 Apixaban [Eliquis] 2.5 mg PO BID 01/02/22 Furosemide [Lasix] 20 mg PO DAILY 01/02/22 Potassium Chloride [K-Dur] 20 meq PO 0800 01/02/22 QUEtiapine [SEROquel] 25 mg PO QPM 01/02/22 Timolol 0.5% Ophth Drops [Timoptic 0.5% Ophth Drops] 1 drops EACHEYE BID 01/02/22 hydroCHLOROthiazide [Hydrodiuril] 12.5 mg PO DAILY 01/02/22 traZODone [Desyrel] 50 mg PO 01/02/22 Objective - Vital Signs/Intake & Output Reviewed Vital Signs: Yes Vital Signs: Vital Signs x48h Temp Pulse Pulse Resp BP BP Pulse Ox 01/04/22 06:26 95 105/61 100 01/04/22 04:33 36.3 C L 91 18 94/57 L 100 01/04/22 02:30 105 H 100/47 L Intake & Output: Intake & Output 01/01/22 01/02/22 01/03/22 01/04/22 23:59 23:59 23:59 23:59 Intake Total 8495.646 4644.667 418.333 Output Total 1200 450 300 Balance 561.211 7633.667 118.333 - Objective General Appearance: positive: No acute distress, Alert Eyes Bilateral: positive: Normal inspection, Conjunctivae nml ENT: positive: ENT inspection nml Neck: positive: Nml inspection Respiratory: positive: No respiratory distress. negative: Wheezes, Rhonchi Cardiovascular: positive: Irregularly irregular. negative: Tachycardia Abdomen: positive: Non-tender, No distention. negative: Tenderness Skin: positive: Warm, Dry Extremities: positive: No pedal edema Neurologic/Psychiatric: positive: Motor nml. negative: Disoriented to person, Disoriented to place - Lab Results Fish Bones: 01/04/22 05:30 01/04/22 05:30 Other Labs: Lab Results x24hrs 01/04/22 01/04/22 01/04/22 Range/Units 05:30 05:30 05:30 WBC 5.2 (4.8-10.8) x10^3/uL RBC 3.56 L (4.20-5.40) 10^6/uL Hgb 9.4 L (12.0-16.0) g/dL Hct 30.1 L (37.0-47.0) % MCV 84.6 (81.0-99.0) fL MCH 26.4 L (27.0-31.0) pg MCHC 31.2 L (32.0-36.0) g/dL RDW 13.8 (12.0-15.0) % Plt Count 223 (130-450) 10^3/uL MPV 9.4 (7.9-10.8) fL Neut # (Auto) 2.6 (1.5-6.6) 10^3/uL Lymph # (Auto) 1.7 (1.5-3.5) 10^3/uL [place] # (Auto) 0.7 (0.0-1.0) 10^3/uL Eos # (Auto) 0.2 (0.0-0.7) 10^3/uL Baso # (Auto) 0.0 (0.0-0.1) 10^3/uL Absolute Nucleated RBC 0.00 x10^3/uL Nucleated RBC % 0.0 /100WBC Sodium 132 L (135-145) mmol/L Potassium 4.3 (3.5-5.0) mmol/L Chloride 99 L (101-111) mmol/L Carbon Dioxide 25 (21-32) mmol/L Anion Gap 8.0 (6-13) BUN 33 H (6-20) mg/dL Creatinine 1.3 H (0.4-1.0) mg/dL Estimated GFR (MDRD) 39 L (>89) Glucose 95 (70-100) mg/dL Calcium 8.6 (8.5-10.3) mg/dL B-Natriuretic Peptide (5-100) pg/mL Last Dose Date UNKNOWN Last Dose Time UNKNOWN Digoxin 0.3 ng/mL 01/03/22 Range/Units 08:05 WBC (4.8-10.8) x10^3/uL RBC (4.20-5.40) 10^6/uL Hgb (12.0-16.0) g/dL Hct (37.0-47.0) % MCV (81.0-99.0) fL MCH (27.0-31.0) pg MCHC (32.0-36.0) g/dL RDW (12.0-15.0) % Plt Count (130-450) 10^3/uL MPV (7.9-10.8) fL Neut # (Auto) (1.5-6.6) 10^3/uL Lymph # (Auto) (1.5-3.5) 10^3/uL [place] # (Auto) (0.0-1.0) 10^3/uL Eos # (Auto) (0.0-0.7) 10^3/uL Baso # (Auto) (0.0-0.1) 10^3/uL Absolute Nucleated RBC x10^3/uL Nucleated RBC % /100WBC Sodium (135-145) mmol/L Potassium (3.5-5.0) mmol/L Chloride (101-111) mmol/L Carbon Dioxide (21-32) mmol/L Anion Gap (6-13) BUN (6-20) mg/dL Creatinine (0.4-1.0) mg/dL Estimated GFR (MDRD) (>89) Glucose (70-100) mg/dL Calcium (8.5-10.3) mg/dL B-Natriuretic Peptide 836 H (5-100) pg/mL Last Dose Date Last Dose Time Digoxin ng/mL Assessment/Plan - Problem List (1) Acute on chronic systolic CHF (congestive heart failure) Impression: This appears to be improving. Her echocardiogram revealed an ejection fraction of 20 to 25% which is new. Her dyspnea is improving and her BNP is trending down compared to admission. It is now 800 compared to 1200. Her renal function is also improving. She remains on room air. Given she became hypotensive yesterday with IV diuresis, we will switch her to oral Lasix today and we will monitor her respiratory status on this. We will continue metoprolol. We will hold off on lisinopril given her renal function is still improving. I called [facility] today to get an update on their bed status and it appears there was miscommunication and the patient was not on the wait list. I added her to the wait list today and they will call me back although they do not believe a bed will be available today but hopefully there will be one available by tomorrow. We will continue to manage her as mentioned above. (2) Atrial fibrillation with rapid ventricular response Impression: Her heart rate has been controlled on metoprolol and digoxin which she will continue. Continue Eliquis. (3) Acute kidney injury Impression: This is improving and was likely related to cardiorenal syndrome. Her creatinine today is 1.3 compared to 1.7 on admission. Her baseline is approximately 1.1. We will switch her to oral Lasix today and if her creatinine remained stable we can potentially look to start lisinopril and spironolactone although this will likely be deferred until she is transferred to [facility] in [place]. (4) Hyponatremia Impression: Her sodium stable at 132. Is likely hypervolemic hyponatremia. This should continue to improve with diuresis. (5) Hypotension Impression: She was hypotensive yesterday after receiving IV Lasix again. We gave her 2 small 500 mL boluses over a few hours. Her blood pressure has since been stable with systolics in the 90s to low 100s. We will continue the current dose of metoprolol for her to oral Lasix. We will continue to monitor her blood pressure closely. (6) GERD (gastroesophageal reflux disease) Impression: Continue Protonix.
[2022-01-04] MEDS: FUROSEMIDE 40 MG TABLET PO SCH (09:10)
[2022-01-04] MEDS: METOPROLOL SUCCINATE 25 MG TABLET PO SCH (09:10)
[2022-01-04] MEDS: DIGOXIN 125 MCG TABLET PO SCH (09:10)
[2022-01-04] MEDS: TIMOLOL 0.5% OPHTH DROPS EACHEYE SCH ×2 (09:10→21:07)
[2022-01-04] MEDS: SODIUM CHLORIDE FLUSH 0.9% 10 ML SYRINGE IVP SCH ×3 (09:10→18:44)
[2022-01-04] MEDS: APIXABAN 2.5 MG TABLET PO SCH ×2 (09:10→21:07)
[2022-01-04] MEDS: POTASSIUM CHLORIDE 20 MEQ TABLET PO SCH (09:10)
[2022-01-04] MEDS: QUEtiapine 25 MG TABLET PO SCH (21:07)
[2022-01-04] MEDS: traZODone 50 MG TABLET PO SCH (21:07)
[2022-01-05] MEDS: SODIUM CHLORIDE FLUSH 0.9% 10 ML SYRINGE IVP SCH ×3 (00:13→20:28)
[2022-01-05 05:48] LABS: BASOPHILS % (AUTO) 0.5 %; EOSINOPHILS # (AUTO) 0.2 10^3/uL (0.0-0.7); EOSINOPHILS % (AUTO) 2.6 %; HCT - HEMATOCRIT 30.8 % (37.0-47.0); HGB - HEMOGLOBIN 9.7 g/dL (12.0-16.0); LYMPHOCYTES # (AUTO) 1.9 10^3/uL (1.5-3.5); LYMPHOCYTES % (AUTO) 32.1 %; MEAN CORPUSCULAR HEMOGLOBIN 26.4 pg (27.0-31.0); MEAN CORPUSCULAR HGB CONC 31.5 g/dL (32.0-36.0); MEAN CORPUSCULAR VOLUME 83.9 fL (81.0-99.0); MEAN PLATELET VOLUME 9.6 fL (7.9-10.8); MONOCYTES # (AUTO) 0.8 10^3/uL (0.0-1.0); MONOCYTES % (AUTO) 12.7 %; NEUTROPHILS # (AUTO) 3.1 10^3/uL (1.5-6.6); NEUTROPHILS % (AUTO) 51.8 %; PLT - PLATELET COUNT 217 10^3/uL (130-450); RED BLOOD COUNT 3.67 10^6/uL (4.20-5.40); RED CELL DISTRIBUTION WIDTH 13.8 % (12.0-15.0)
[2022-01-05] MEDS: PANTOPRAZOLE 40 MG TABLET PO SCH (05:52)
[2022-01-05 05:59] LABS: CREATININE 1.1 mg/dL (0.4-1.0); POTASSIUM 4.3 mmol/L (3.5-5.0)
[2022-01-05] MEDS: POTASSIUM CHLORIDE 20 MEQ TABLET PO SCH (08:37)
[2022-01-05] MEDS: APIXABAN 2.5 MG TABLET PO SCH ×2 (08:37→20:27)
[2022-01-05] MEDS: FUROSEMIDE 40 MG TABLET PO SCH (08:37)
[2022-01-05] MEDS: DIGOXIN 125 MCG TABLET PO SCH (08:37)
[2022-01-05] MEDS: METOPROLOL SUCCINATE 25 MG TABLET PO SCH (08:37)
[2022-01-05] MEDS: TIMOLOL 0.5% OPHTH DROPS EACHEYE SCH ×2 (08:38→20:28)
[2022-01-05] MEDS: ACETAMINOPHEN 325 MG TABLET PO PRN ×2 (09:30→20:28)
--- NOTE | 2022-01-05 10:41 | PROVIDER PROGRESS NOTE ---
Subjective - Prog Note Date Prog Note Date: 01/05/22 - Subjective Subjective: She felt a little more short of breath this morning. She feels like dyspnea with activity is worse today. She is feels fatigued overall. Denies any chest pain. Current Medications - Current Medications Current Medications: Active Medications Acetaminophen (Acetaminophen 325 Mg Tablet) 650 mg PO Q4HR PRN PRN Reason: Pain 1 to 4 Last Admin: 01/05/22 09:30 Dose: 650 mg Apixaban (Apixaban 2.5 Mg Tablet) 2.5 mg PO BID [facility] Last Admin: 01/05/22 08:37 Dose: 2.5 mg Calcium Carbonate/Glycine (Calcium Carbonate Chew 500 Mg Tablet) 500 mg PO TID PRN PRN Reason: Heartburn Last Admin: 01/02/22 22:33 Dose: 500 mg Digoxin (Digoxin 125 Mcg Tablet) 125 mcg PO DAILY [facility] Last Admin: 01/05/22 08:37 Dose: 125 mcg Furosemide (Furosemide 40 Mg Tablet) 40 mg PO DAILY [facility] Last Admin: 01/05/22 08:37 Dose: 40 mg Metoprolol Succinate (Metoprolol Succinate 25 Mg Tablet) 25 mg PO DAILY [facility] Last Admin: 01/05/22 08:37 Dose: 25 mg Ondansetron HCl (Ondansetron 4 Mg/2 Ml Vial) 4 mg IVP Q6HR PRN PRN Reason: Nausea / Vomiting Pantoprazole Sodium (Pantoprazole 40 Mg Tablet) 40 mg PO QDAC [facility] Last Admin: 01/05/22 05:52 Dose: 40 mg Potassium Chloride (Potassium Chloride 20 Meq Tablet) 20 meq PO 0800 [facility] Last Admin: 01/05/22 08:37 Dose: 20 meq Quetiapine Fumarate (Quetiapine 25 Mg Tablet) 25 mg PO QPM [facility] Last Admin: 01/04/22 21:07 Dose: 25 mg Sodium Chloride (Sodium Chloride Flush 0.9% 10 Ml Syringe) 10 ml IVP PRN PRN PRN Reason: NEEDED PER PROVIDER ORDERS Sodium Chloride (Sodium Chloride Flush 0.9% 10 Ml Syringe) 10 ml IVP 0100,0900,1700 [facility] Last Admin: 01/05/22 08:38 Dose: 10 ml Timolol Maleate (Timolol 0.5% Ophth Drops) 1 drops EACHEYE BID [facility] Last Admin: 01/05/22 08:38 Dose: 1 drops Trazodone HCl (Trazodone 50 Mg Tablet) 50 mg PO [facility] Last Admin: 01/04/22 21:07 Dose: 50 mg Metoprolol Succinate [Toprol Xl] 25 mg PO DAILY 05/17/15 Omeprazole 20 mg PO QDAC 05/17/15 Apixaban [Eliquis] 2.5 mg PO BID 01/02/22 Furosemide [Lasix] 20 mg PO DAILY 01/02/22 Potassium Chloride [K-Dur] 20 meq PO 0800 01/02/22 QUEtiapine [SEROquel] 25 mg PO QPM 01/02/22 Timolol 0.5% Ophth Drops [Timoptic 0.5% Ophth Drops] 1 drops EACHEYE BID 01/02/22 hydroCHLOROthiazide [Hydrodiuril] 12.5 mg PO DAILY 01/02/22 traZODone [Desyrel] 50 mg PO 01/02/22 Objective - Vital Signs/Intake & Output Reviewed Vital Signs: Yes Vital Signs: Vital Signs x48h Temp Pulse Pulse Resp BP Pulse Ox 01/05/22 07:36 36.5 C 82 86 21 99/67 99 01/05/22 05:56 36.4 C L 86 18 122/99 H 98 Intake & Output: Intake & Output 01/02/22 01/03/22 01/04/22 01/05/22 23:59 23:59 23:59 23:59 Intake Total 9583.078 9848.667 1555.333 380 Output Total 1200 450 700 550 Balance 974.351 2972.667 855.333 -170 - Objective General Appearance: positive: No acute distress, Alert Eyes Bilateral: positive: Normal inspection, Conjunctivae nml ENT: positive: ENT inspection nml Neck: positive: Nml inspection Respiratory: positive: No respiratory distress, Rales. negative: Wheezes Cardiovascular: positive: Irregularly irregular. negative: Tachycardia Skin: positive: Warm, Dry Extremities: positive: No pedal edema - Lab Results Fish Bones: 01/05/22 05:28 01/05/22 05:28 Other Labs: Lab Results x24hrs 01/05/22 01/05/22 01/05/22 Range/Units 05:28 05:28 05:25 WBC 6.0 (4.8-10.8) x10^3/uL RBC 3.67 L (4.20-5.40) 10^6/uL Hgb 9.7 L (12.0-16.0) g/dL Hct 30.8 L (37.0-47.0) % MCV 83.9 (81.0-99.0) fL MCH 26.4 L (27.0-31.0) pg MCHC 31.5 L (32.0-36.0) g/dL RDW 13.8 (12.0-15.0) % Plt Count 217 (130-450) 10^3/uL MPV 9.6 (7.9-10.8) fL Neut # (Auto) 3.1 (1.5-6.6) 10^3/uL Lymph # (Auto) 1.9 (1.5-3.5) 10^3/uL [place] # (Auto) 0.8 (0.0-1.0) 10^3/uL Eos # (Auto) 0.2 (0.0-0.7) 10^3/uL Baso # (Auto) 0.0 (0.0-0.1) 10^3/uL Absolute Nucleated RBC 0.00 x10^3/uL Nucleated RBC % 0.0 /100WBC Sodium 131 L (135-145) mmol/L Potassium 4.3 (3.5-5.0) mmol/L Chloride 101 (101-111) mmol/L Carbon Dioxide 24 (21-32) mmol/L Anion Gap 6.0 (6-13) BUN 26 H (6-20) mg/dL Creatinine 1.1 H (0.4-1.0) mg/dL Estimated GFR (MDRD) 47 L (>89) Glucose 96 (70-100) mg/dL Calcium 9.0 (8.5-10.3) mg/dL B-Natriuretic Peptide 1477 H (5-100) pg/mL Assessment/Plan - Problem List (1) Acute on chronic systolic CHF (congestive heart failure) Impression: She feels more dyspneic today and was not hypoxic or edematous, her BNP is elevated compared to admission. Her Lasix yesterday was held due to hypotension. We will resume Lasix today and if her blood pressure can tolerate it we'll look to increase the dose intravenously. We'll continue on metoprolol. I called [facility] again and she is on the wait list there. There are still awaiting a bed to become available for transfer. We did repeat an EKG and troponin today given her dyspnea but there is no evidence of ischemia and her troponin remains normal. (2) Atrial fibrillation with rapid ventricular response Impression: Her rate remains controlled on metoprolol and digoxin. Continue Eliquis. (3) Acute kidney injury Impression: This is resolved and was likely cardiorenal syndrome. Creatinine is down to 1.1 which is her baseline. We will continue to diurese her as long as her blood pressure can tolerate it. (4) Hyponatremia Impression: Her sodium is relatively stable at 131. This is hypervolemic hyponatremia due to the CHF. This should improve as we diurese her. (5) Hypotension Impression: She was hypertensive yesterday morning but did not require fluids. We held her Lasix but gave her metoprolol. Her blood pressure has been stable since then with systolics in the 90s. We we will resume oral Lasix today and if she can tolerate this we will switch to IV diuresis. Continue metoprolol. We are still looking to transfer her to higher level of care for further evaluation of her heart failure. (6) GERD (gastroesophageal reflux disease) Impression: Continue protonix.
[2022-01-05] MEDS: QUEtiapine 25 MG TABLET PO SCH (20:27)
[2022-01-05] MEDS: traZODone 50 MG TABLET PO SCH (20:27)
[2022-01-06] MEDS: SODIUM CHLORIDE FLUSH 0.9% 10 ML SYRINGE IVP SCH ×4 (00:22→23:45)
[2022-01-06] MEDS: PANTOPRAZOLE 40 MG TABLET PO SCH (05:32)
[2022-01-06 05:49] LABS: BASOPHILS % (AUTO) 0.5 %; EOSINOPHILS # (AUTO) 0.2 10^3/uL (0.0-0.7); EOSINOPHILS % (AUTO) 3.3 %; HCT - HEMATOCRIT 30.5 % (37.0-47.0); HGB - HEMOGLOBIN 9.5 g/dL (12.0-16.0); LYMPHOCYTES # (AUTO) 2.1 10^3/uL (1.5-3.5); LYMPHOCYTES % (AUTO) 34.2 %; MEAN CORPUSCULAR HEMOGLOBIN 26.1 pg (27.0-31.0); MEAN CORPUSCULAR HGB CONC 31.1 g/dL (32.0-36.0); MEAN CORPUSCULAR VOLUME 83.8 fL (81.0-99.0); MEAN PLATELET VOLUME 9.1 fL (7.9-10.8); MONOCYTES # (AUTO) 0.8 10^3/uL (0.0-1.0); MONOCYTES % (AUTO) 13.2 %; NEUTROPHILS % (AUTO) 48.5 %; PLT - PLATELET COUNT 212 10^3/uL (130-450); RED BLOOD COUNT 3.64 10^6/uL (4.20-5.40); RED CELL DISTRIBUTION WIDTH 13.8 % (12.0-15.0); WHITE BLOOD COUNT 6.1 x10^3/uL (4.8-10.8)
[2022-01-06 05:58] LABS: CALCIUM 8.4 mg/dL (8.5-10.3); CREATININE 1.2 mg/dL (0.4-1.0); POTASSIUM 4.1 mmol/L (3.5-5.0)
[2022-01-06] MEDS: DIGOXIN 125 MCG TABLET PO SCH (08:12)
[2022-01-06] MEDS: POTASSIUM CHLORIDE 20 MEQ TABLET PO SCH (08:12)
[2022-01-06] MEDS: METOPROLOL SUCCINATE 25 MG TABLET PO SCH (08:12)
[2022-01-06] MEDS: APIXABAN 2.5 MG TABLET PO SCH ×2 (08:12→20:57)
[2022-01-06] MEDS: TIMOLOL 0.5% OPHTH DROPS EACHEYE SCH ×2 (08:14→20:57)
[2022-01-06] MEDS: ACETAMINOPHEN 325 MG TABLET PO PRN ×3 (08:17→20:56)
[2022-01-06] MEDS ORDERED: FUROSEMIDE 40 MG/4 ML VIAL IVP SCH (09:00)
[2022-01-06 10:03] LABS: % IRON SATURATION 5 % (20-50); IRON 21 ug/dL (28-170); TOTAL IRON BINDING CAPACITY 414 ug/dL (250-450); TRANSFERRIN 296 mg/dL (192-382)
[2022-01-06] MEDS ORDERED: FUROSEMIDE 40 MG/4 ML VIAL IVP STA (15:02)
--- NOTE | 2022-01-06 15:20 | PROVIDER PROGRESS NOTE ---
Subjective - Prog Note Date Prog Note Date: 01/06/22 - Subjective Subjective: She feels improved today. Feels less short of breath but yesterday and feels like her dyspnea with activity is improved. Continues to report no leg edema. Current Medications - Current Medications Current Medications: Active Medications Acetaminophen (Acetaminophen 325 Mg Tablet) 650 mg PO Q4HR PRN PRN Reason: Pain 1 to 4 Last Admin: 01/06/22 13:22 Dose: 650 mg Apixaban (Apixaban 2.5 Mg Tablet) 2.5 mg PO BID [facility] Last Admin: 01/06/22 08:12 Dose: 2.5 mg Calcium Carbonate/Glycine (Calcium Carbonate Chew 500 Mg Tablet) 500 mg PO TID PRN PRN Reason: Heartburn Last Admin: 01/02/22 22:33 Dose: 500 mg Digoxin (Digoxin 125 Mcg Tablet) 125 mcg PO DAILY [facility] Last Admin: 01/06/22 08:12 Dose: 125 mcg Ferrous Sulfate (Ferrous Sulfate 325 Mg Tablet) [facility] Metoprolol Succinate (Metoprolol Succinate 25 Mg Tablet) 25 mg PO DAILY [facility] Last Admin: 01/06/22 08:12 Dose: 25 mg Ondansetron HCl (Ondansetron 4 Mg/2 Ml Vial) 4 mg IVP Q6HR PRN PRN Reason: Nausea / Vomiting Pantoprazole Sodium (Pantoprazole 40 Mg Tablet) 40 mg PO QDAC [facility] Last Admin: 01/06/22 05:32 Dose: 40 mg Potassium Chloride (Potassium Chloride 20 Meq Tablet) 20 meq PO 0800 [facility] Last Admin: 01/06/22 08:12 Dose: 20 meq Quetiapine Fumarate (Quetiapine 25 Mg Tablet) 25 mg PO QPM [facility] Last Admin: 01/05/22 20:27 Dose: 25 mg Sodium Chloride (Sodium Chloride Flush 0.9% 10 Ml Syringe) 10 ml IVP PRN PRN PRN Reason: NEEDED PER PROVIDER ORDERS Sodium Chloride (Sodium Chloride Flush 0.9% 10 Ml Syringe) 10 ml IVP 0100,0900,1700 [facility] Last Admin: 01/06/22 09:44 Dose: 10 ml Timolol Maleate (Timolol 0.5% Ophth Drops) 1 drops EACHEYE BID [facility] Last Admin: 01/06/22 08:14 Dose: 1 drops Trazodone HCl (Trazodone 50 Mg Tablet) 50 mg PO HS [facility] Last Admin: 01/05/22 20:27 Dose: 50 mg Metoprolol Succinate [Toprol Xl] 25 mg PO DAILY 05/17/15 Omeprazole 20 mg PO QDAC 05/17/15 Apixaban [Eliquis] 2.5 mg PO BID 01/02/22 Furosemide [Lasix] 20 mg PO DAILY 01/02/22 Potassium Chloride [K-Dur] 20 meq PO 0800 01/02/22 QUEtiapine [SEROquel] 25 mg PO QPM 01/02/22 Timolol 0.5% Ophth Drops [Timoptic 0.5% Ophth Drops] 1 drops EACHEYE BID 01/02/22 hydroCHLOROthiazide [Hydrodiuril] 12.5 mg PO DAILY 01/02/22 traZODone [Desyrel] 50 mg PO HS 01/02/22 Objective - Vital Signs/Intake & Output Reviewed Vital Signs: Yes Vital Signs: Vital Signs x48h Temp Pulse Pulse Resp BP Pulse Ox 01/06/22 13:15 60 99/75 100 01/06/22 11:30 94 88/47 L 01/06/22 11:25 36.7 C 82 18 85/51 L 96 01/06/22 10:51 79 87/46 L 01/06/22 10:19 98 01/06/22 10:18 98 01/06/22 09:45 91 88/58 L 01/06/22 09:43 96 98/48 L 01/06/22 07:30 36.6 C 69 16 120/68 98 Intake & Output: Intake & Output 01/03/22 01/04/22 01/05/22 01/06/22 23:59 23:59 23:59 23:59 Intake Total 2355.667 7800.546 5886 580 Output Total 868 590 7199 700 Balance 1905.667 855.333 -575 -120 - Objective General Appearance: positive: No acute distress, Alert Eyes Bilateral: positive: Normal inspection, Conjunctivae nml ENT: positive: ENT inspection nml Neck: positive: Nml inspection Respiratory: positive: No respiratory distress, Rales. negative: Wheezes Cardiovascular: positive: Irregularly irregular. negative: Tachycardia Skin: positive: Warm, Dry Extremities: positive: No pedal edema Neurologic/Psychiatric: negative: Disoriented to person, Disoriented to place - Lab Results Fish Bones: 01/06/22 05:33 01/06/22 05:33 Other Labs: Lab Results x24hrs 01/06/22 01/06/22 01/06/22 Range/Units 05:33 05:33 05:33 WBC (4.8-10.8) x10^3/uL RBC (4.20-5.40) 10^6/uL Hgb (12.0-16.0) g/dL Hct (37.0-47.0) % MCV (81.0-99.0) fL MCH (27.0-31.0) pg MCHC (32.0-36.0) g/dL RDW (12.0-15.0) % Plt Count (130-450) 10^3/uL MPV (7.9-10.8) fL Neut # (Auto) (1.5-6.6) 10^3/uL Lymph # (Auto) (1.5-3.5) 10^3/uL [place] # (Auto) (0.0-1.0) 10^3/uL Eos # (Auto) (0.0-0.7) 10^3/uL Baso # (Auto) (0.0-0.1) 10^3/uL Absolute Nucleated RBC x10^3/uL Nucleated RBC % /100WBC Sodium 132 L (135-145) mmol/L Potassium 4.1 (3.5-5.0) mmol/L Chloride 98 L (101-111) mmol/L Carbon Dioxide 27 (21-32) mmol/L Anion Gap 7.0 (6-13) BUN 28 H (6-20) mg/dL Creatinine 1.2 H (0.4-1.0) mg/dL Estimated GFR (MDRD) 43 L (>89) Glucose 89 (70-100) mg/dL Calcium 8.4 L (8.5-10.3) mg/dL Iron 21 L (28-170) ug/dL TIBC 414 (250-450) ug/dL % Saturation 5 L (20-50) % Transferrin 296 (192-382) mg/dL Ferritin 9.3 L (11.0-306.8) ng/mL 01/06/22 Range/Units 05:33 WBC 6.1 (4.8-10.8) x10^3/uL RBC 3.64 L (4.20-5.40) 10^6/uL Hgb 9.5 L (12.0-16.0) g/dL Hct 30.5 L (37.0-47.0) % MCV 83.8 (81.0-99.0) fL MCH 26.1 L (27.0-31.0) pg MCHC 31.1 L (32.0-36.0) g/dL RDW 13.8 (12.0-15.0) % Plt Count 212 (130-450) 10^3/uL MPV 9.1 (7.9-10.8) fL Neut # (Auto) 3.0 (1.5-6.6) 10^3/uL Lymph # (Auto) 2.1 (1.5-3.5) 10^3/uL [place] # (Auto) 0.8 (0.0-1.0) 10^3/uL Eos # (Auto) 0.2 (0.0-0.7) 10^3/uL Baso # (Auto) 0.0 (0.0-0.1) 10^3/uL Absolute Nucleated RBC 0.00 x10^3/uL Nucleated RBC % 0.0 /100WBC Sodium (135-145) mmol/L Potassium (3.5-5.0) mmol/L Chloride (101-111) mmol/L Carbon Dioxide (21-32) mmol/L Anion Gap (6-13) BUN (6-20) mg/dL Creatinine (0.4-1.0) mg/dL Estimated GFR (MDRD) (>89) Glucose (70-100) mg/dL Calcium (8.5-10.3) mg/dL Iron (28-170) ug/dL TIBC (250-450) ug/dL % Saturation (20-50) % Transferrin (192-382) mg/dL Ferritin (11.0-306.8) ng/mL Assessment/Plan - Problem List (1) Acute on chronic systolic CHF (congestive heart failure) Impression: It has been difficult to diurese her due to the hypotension so we have decided to split up her medications to prevent hypotension. We will give her 40 mg of IV Lasix this afternoon given her BNP was elevated yesterday. She is still dyspneic with activity and echocardiogram revealed an ejection fraction of 25%. We will continue with IV diuresis as tolerated. Continue metoprolol. Renal function is stable as we could look to start lisinopril but we will await this until she is transferred to [facility] as was recommended by her barometers calibrator. She remains on the wait list there. Ultimately, if we are unable to obtain a bed at [facility] and he she is no longer in acute heart failure with stable blood pressure then we may discharge her home and set up outpatient follow-up with her barometers calibrator. I discussed this with the patient and her who are in agreement with the plan if this is what is necessary. At this time, she is still not medically cleared to be discharged home. (2) Hypotension Impression: This has limited our ability to diurese her. Her systolic has dropped to as low as the 80s although she is asymptomatic with this. She has been receiving metoprolol and digoxin. This morning her systolic is in the 90s. We will look to administer just metoprolol and digoxin this morning and give the Lasix in the early afternoon to split the dosing up to prevent hypotension. (3) Atrial fibrillation with rapid ventricular response Impression: Her heart rate remains controlled on metoprolol and digoxin. We will continue these as well as Eliquis. (4) Acute kidney injury Impression: Her acute kidney injury has resolved. Her renal function is back to her baseline what creatinine of 1.1. The acute kidney injury was due to cardiorenal syndrome. Continue to monitor her renal function as she is being diuresed. (5) Hyponatremia Impression: This is hypervolemic hyponatremia secondary to heart failure. Her sodium is stable. Continue IV diuresis. (6) Iron deficiency anemia Impression: She is anemic and we checked iron studies today which confirmed iron deficiency anemia. We will start her on oral iron. (7) GERD (gastroesophageal reflux disease) Impression: Continue Protonix.
[2022-01-06] MEDS: traZODone 50 MG TABLET PO SCH (20:56)
[2022-01-06] MEDS: QUEtiapine 25 MG TABLET PO SCH (20:56)
[2022-01-07 05:07] LABS: BASOPHILS % (AUTO) 0.3 %; EOSINOPHILS # (AUTO) 0.2 10^3/uL (0.0-0.7); EOSINOPHILS % (AUTO) 2.7 %; HCT - HEMATOCRIT 32.6 % (37.0-47.0); HGB - HEMOGLOBIN 10.2 g/dL (12.0-16.0); LYMPHOCYTES % (AUTO) 33.8 %; MEAN CORPUSCULAR HEMOGLOBIN 26.6 pg (27.0-31.0); MEAN CORPUSCULAR HGB CONC 31.3 g/dL (32.0-36.0); MEAN CORPUSCULAR VOLUME 84.9 fL (81.0-99.0); MEAN PLATELET VOLUME 9.2 fL (7.9-10.8); MONOCYTES # (AUTO) 0.7 10^3/uL (0.0-1.0); MONOCYTES % (AUTO) 11.8 %; NEUTROPHILS # (AUTO) 3.1 10^3/uL (1.5-6.6); NEUTROPHILS % (AUTO) 50.9 %; PLT - PLATELET COUNT 225 10^3/uL (130-450); RED BLOOD COUNT 3.84 10^6/uL (4.20-5.40); RED CELL DISTRIBUTION WIDTH 13.8 % (12.0-15.0)
[2022-01-07 05:20] LABS: CALCIUM 8.9 mg/dL (8.5-10.3); CREATININE 1.2 mg/dL (0.4-1.0)
[2022-01-07] MEDS: PANTOPRAZOLE 40 MG TABLET PO SCH (06:17)
[2022-01-07] MEDS: POTASSIUM CHLORIDE 20 MEQ TABLET PO SCH (08:06)
[2022-01-07] MEDS: FERROUS SULFATE 325 MG TABLET PO SCH (08:06)
[2022-01-07] MEDS: APIXABAN 2.5 MG TABLET PO SCH ×2 (08:06→20:10)
[2022-01-07] MEDS: DIGOXIN 125 MCG TABLET PO SCH (08:06)
[2022-01-07] MEDS: METOPROLOL SUCCINATE 25 MG TABLET PO SCH (08:06)
[2022-01-07] MEDS: TIMOLOL 0.5% OPHTH DROPS EACHEYE SCH ×2 (08:07→20:10)
[2022-01-07] MEDS: SODIUM CHLORIDE FLUSH 0.9% 10 ML SYRINGE IVP SCH ×3 (08:07→23:43)
--- NOTE | 2022-01-07 08:52 | PROVIDER PROGRESS NOTE ---
Subjective - Prog Note Date Prog Note Date: 01/07/22 Prog Note Time: 09:00 - Subjective Pt reports feeling: No change Subjective: Patient reports feeling okay today. Says that she slept well overnight but still feeling a little fatigued. She presently denies shortness of breath or chest pain. Believes the shortness of breath that she presented with is improving. She reports that she has been up walking around. Denies dizziness, lightheadedness, nausea, or palpitations. Current Medications - Current Medications Current Medications: Active Medications Acetaminophen (Acetaminophen 325 Mg Tablet) 650 mg PO Q4HR PRN PRN Reason: Pain 1 to 4 Last Admin: 01/06/22 20:56 Dose: 650 mg Apixaban (Apixaban 2.5 Mg Tablet) 2.5 mg PO BID [facility] Last Admin: 01/07/22 08:06 Dose: 2.5 mg Calcium Carbonate/Glycine (Calcium Carbonate Chew 500 Mg Tablet) 500 mg PO TID PRN PRN Reason: Heartburn Last Admin: 01/02/22 22:33 Dose: 500 mg Digoxin (Digoxin 125 Mcg Tablet) 125 mcg PO DAILY [facility] Last Admin: 01/07/22 08:06 Dose: 125 mcg Ferrous Sulfate (Ferrous Sulfate 325 Mg Tablet) 325 mg PO DAILYWM [facility] Last Admin: 01/07/22 08:06 Dose: 325 mg Metoprolol Succinate (Metoprolol Succinate 25 Mg Tablet) 25 mg PO DAILY [facility] Last Admin: 01/07/22 08:06 Dose: 25 mg Ondansetron HCl (Ondansetron 4 Mg/2 Ml Vial) 4 mg IVP Q6HR PRN PRN Reason: Nausea / Vomiting Pantoprazole Sodium (Pantoprazole 40 Mg Tablet) 40 mg PO QDAC [facility] Last Admin: 01/07/22 06:17 Dose: 40 mg Potassium Chloride (Potassium Chloride 20 Meq Tablet) 20 meq PO 0800 [facility] Last Admin: 01/07/22 08:06 Dose: 20 meq Quetiapine Fumarate (Quetiapine 25 Mg Tablet) 25 mg PO QPM [facility] Last Admin: 01/06/22 20:56 Dose: 25 mg Sodium Chloride (Sodium Chloride Flush 0.9% 10 Ml Syringe) 10 ml IVP PRN PRN PRN Reason: NEEDED PER PROVIDER ORDERS Sodium Chloride (Sodium Chloride Flush 0.9% 10 Ml Syringe) 10 ml IVP 0100,0900,1700 [facility] Last Admin: 01/07/22 08:07 Dose: 10 ml Timolol Maleate (Timolol 0.5% Ophth Drops) 1 drops EACHEYE BID [facility] Last Admin: 01/07/22 08:07 Dose: 1 drops Trazodone HCl (Trazodone 50 Mg Tablet) 50 mg PO [facility] Last Admin: 01/06/22 20:56 Dose: 50 mg Metoprolol Succinate [Toprol Xl] 25 mg PO DAILY 05/17/15 Omeprazole 20 mg PO QDAC 05/17/15 Apixaban [Eliquis] 2.5 mg PO BID 01/02/22 Furosemide [Lasix] 20 mg PO DAILY 01/02/22 Potassium Chloride [K-Dur] 20 meq PO 0800 01/02/22 QUEtiapine [SEROquel] 25 mg PO QPM 01/02/22 Timolol 0.5% Ophth Drops [Timoptic 0.5% Ophth Drops] 1 drops EACHEYE BID 01/02/22 hydroCHLOROthiazide [Hydrodiuril] 12.5 mg PO DAILY 01/02/22 traZODone [Desyrel] 50 mg PO 01/02/22 Objective - Vital Signs/Intake & Output Reviewed Vital Signs: Yes Vital Signs: Vital Signs x48h Temp Pulse Pulse Resp BP BP Pulse Ox 01/07/22 08:08 36.6 C 90 17 102/80 01/07/22 07:55 87 98 01/07/22 04:44 36.5 C 78 17 100/48 L 97 01/07/22 03:16 94 105/55 L Intake & Output: Intake & Output 01/04/22 01/05/22 01/06/22 01/07/22 23:59 23:59 23:59 23:59 Intake Total 4608.153 6913 780 120 Output Total 700 1925 3000 150 Balance 855.333 -575 -2220 -30 - Objective General Appearance: positive: No acute distress, Alert, Other (Semi-flower in bed wrapped in multiple blankets. She sat up during the exam and became easily fatigued and short of breath.) Eyes Bilateral: positive: Normal inspection ENT: positive: ENT inspection nml, No signs of dehydration Neck: positive: Nml inspection, No JVD Respiratory: positive: Chest non-tender, No respiratory distress, Rales (Bilateral lower lobes). negative: Wheezes Cardiovascular: positive: Irregularly irregular. negative: Tachycardia Peripheral Pulses: 2+ Radial (R), 2+ Radial (L), 2+ Dorsalis pedis (R), 2+ Do rsalis pedis (L) Abdomen: positive: Non-tender Skin: positive: Warm, Dry Extremities: positive: No pedal edema, Other (Mild tenderness in extremities due to MS) Neurologic/Psychiatric: positive: Oriented x3, Motor nml, Sensation nml - Lab Results Fish Bones: 01/07/22 04:39 01/07/22 04:39 Other Labs: Lab Results x24hrs 01/07/22 01/07/22 01/07/22 Range/Units 04:39 04:39 04:39 WBC 6.0 (4.8-10.8) x10^3/uL RBC 3.84 L (4.20-5.40) 10^6/uL Hgb 10.2 L (12.0-16.0) g/dL Hct 32.6 L (37.0-47.0) % MCV 84.9 (81.0-99.0) fL MCH 26.6 L (27.0-31.0) pg MCHC 31.3 L (32.0-36.0) g/dL RDW 13.8 (12.0-15.0) % Plt Count 225 (130-450) 10^3/uL MPV 9.2 (7.9-10.8) fL Neut # (Auto) 3.1 (1.5-6.6) 10^3/uL Lymph # (Auto) 2.0 (1.5-3.5) 10^3/uL [place] # (Auto) 0.7 (0.0-1.0) 10^3/uL Eos # (Auto) 0.2 (0.0-0.7) 10^3/uL Baso # (Auto) 0.0 (0.0-0.1) 10^3/uL Absolute Nucleated RBC 0.00 x10^3/uL Nucleated RBC % 0.0 /100WBC Sodium 136 (135-145) mmol/L Potassium 4.0 (3.5-5.0) mmol/L Chloride 102 (101-111) mmol/L Carbon Dioxide 29 (21-32) mmol/L Anion Gap 5.0 L (6-13) BUN 24 H (6-20) mg/dL Creatinine 1.2 H (0.4-1.0) mg/dL Estimated GFR (MDRD) 43 L (>89) Glucose 92 (70-100) mg/dL Calcium 8.9 (8.5-10.3) mg/dL Iron (28-170) ug/dL TIBC (250-450) ug/dL % Saturation (20-50) % Transferrin (192-382) mg/dL Ferritin (11.0-306.8) ng/mL B-Natriuretic Peptide 1069 H (5-100) pg/mL 01/06/22 01/06/22 Range/Units 05:33 05:33 WBC (4.8-10.8) x10^3/uL RBC (4.20-5.40) 10^6/uL Hgb (12.0-16.0) g/dL Hct (37.0-47.0) % MCV (81.0-99.0) fL MCH (27.0-31.0) pg MCHC (32.0-36.0) g/dL RDW (12.0-15.0) % Plt Count (130-450) 10^3/uL MPV (7.9-10.8) fL Neut # (Auto) (1.5-6.6) 10^3/uL Lymph # (Auto) (1.5-3.5) 10^3/uL [place] # (Auto) (0.0-1.0) 10^3/uL Eos # (Auto) (0.0-0.7) 10^3/uL Baso # (Auto) (0.0-0.1) 10^3/uL Absolute Nucleated RBC x10^3/uL Nucleated RBC % /100WBC Sodium (135-145) mmol/L Potassium (3.5-5.0) mmol/L Chloride (101-111) mmol/L Carbon Dioxide (21-32) mmol/L Anion Gap (6-13) BUN (6-20) mg/dL Creatinine (0.4-1.0) mg/dL Estimated GFR (MDRD) (>89) Glucose (70-100) mg/dL Calcium (8.5-10.3) mg/dL Iron 21 L (28-170) ug/dL TIBC 414 (250-450) ug/dL % Saturation 5 L (20-50) % Transferrin 296 (192-382) mg/dL Ferritin 9.3 L (11.0-306.8) ng/mL B-Natriuretic Peptide (5-100) pg/mL ABX Reporting Has patient been on IV antibiotics over the past 48 hours?: No Sepsis Event Note (H) - Evaluation Current Stage of Sepsis: Ruled out Assessment/Plan - Problem List (1) Acute on chronic systolic CHF (congestive heart failure) Impression: It has been difficult to diurese her due to the hypotension so we have decided to split up her medications to prevent hypotension. She is still dyspneic with activity and echocardiogram revealed an ejection fraction of 25%. BNP was elevated today, 1069. Will continue with IV diuresis as tolerated, plan to give her 40 mg of IV Lasix this afternoon. She received metoprolol this morning. Renal function is stable as we could look to start lisinopril but we will await this until she is transferred to [place] as was recommended by her oyster washer. She remains on the wait list there. Ultimately, if we are unable to obtain a bed at [place] and she is no longer in acute heart failure with stable blood pressure then we may discharge her home and set up outpatient follow-up with her oyster washer. We discussed this with the patient and her who are in agreement with the plan if this is what is necessary. At this time, she is still not medically cleared to be discharged home. (2) Hypotension Impression: This has limited our ability to diurese her. Her blood pressure is 100/48 this morning. She remains asymptomatic. She has received metoprolol and digoxin this morning. Hold off on Lasix until this afternoon to split the dosing and prevent hypotension. (3) Atrial fibrillation with RVR Impression: Her heart rate remains controlled on metoprolol and digoxin. We will continue these as well as Eliquis. (4) Iron deficiency anemia Impression: Plan to continue oral iron and monitor CBC. (5) Acute kidney injury Impression: Her acute kidney injury has resolved. Her renal function is back to her baseline, creatinine of 1.2. The acute kidney injury was due to cardiorenal syndrome. Continue to monitor her renal function as she is being diuresed. (6) Hyponatremia Impression: This was hypervolemic hyponatremia secondary to heart failure. Resolved today (01/07). (7) GERD (gastroesophageal reflux disease) Impression: Continue protonix
[2022-01-07] MEDS ORDERED: FUROSEMIDE 20 MG TABLET PO STA (15:01)
[2022-01-07] MEDS ORDERED: FUROSEMIDE 40 MG/4 ML VIAL IVP STA (15:02)
[2022-01-07] MEDS: QUEtiapine 25 MG TABLET PO SCH (20:10)
[2022-01-07] MEDS: ACETAMINOPHEN 325 MG TABLET PO PRN (20:10)
[2022-01-07] MEDS: traZODone 50 MG TABLET PO SCH (20:10)
[2022-01-08] MEDS: PANTOPRAZOLE 40 MG TABLET PO SCH (05:22)
[2022-01-08] MEDS: ACETAMINOPHEN 325 MG TABLET PO PRN ×2 (05:22→18:44)
[2022-01-08 05:49] LABS: BASOPHILS % (AUTO) 0.5 %; EOSINOPHILS # (AUTO) 0.2 10^3/uL (0.0-0.7); EOSINOPHILS % (AUTO) 2.9 %; HCT - HEMATOCRIT 33.5 % (37.0-47.0); HGB - HEMOGLOBIN 10.3 g/dL (12.0-16.0); LYMPHOCYTES # (AUTO) 2.2 10^3/uL (1.5-3.5); LYMPHOCYTES % (AUTO) 36.9 %; MEAN CORPUSCULAR HEMOGLOBIN 25.8 pg (27.0-31.0); MEAN CORPUSCULAR HGB CONC 30.7 g/dL (32.0-36.0); MEAN PLATELET VOLUME 9.3 fL (7.9-10.8); MONOCYTES # (AUTO) 0.7 10^3/uL (0.0-1.0); NEUTROPHILS # (AUTO) 2.8 10^3/uL (1.5-6.6); NEUTROPHILS % (AUTO) 48.2 %; PLT - PLATELET COUNT 237 10^3/uL (130-450); RED BLOOD COUNT 3.99 10^6/uL (4.20-5.40); RED CELL DISTRIBUTION WIDTH 13.8 % (12.0-15.0); WHITE BLOOD COUNT 5.9 x10^3/uL (4.8-10.8)
[2022-01-08 06:07] LABS: CALCIUM 8.9 mg/dL (8.5-10.3); CREATININE 1.3 mg/dL (0.4-1.0); POTASSIUM 3.8 mmol/L (3.5-5.0)
--- NOTE | 2022-01-08 07:23 | PROVIDER PROGRESS NOTE ---
Subjective - Prog Note Date Prog Note Date: 01/08/22 - Subjective Pt reports feeling: Improved Subjective: She reports that she is feeling better today. She denies feeling short of breath, dizzy or light headed. Denies palpitations. Her appetite has been good. She walked with nursing this morning and reports that it went well, she denies shortness of breath with activity. She did feel fatigued after her walk. Current Medications - Current Medications Current Medications: Active Medications Acetaminophen (Acetaminophen 325 Mg Tablet) 650 mg PO Q4HR PRN PRN Reason: Pain 1 to 4 Last Admin: 01/08/22 05:22 Dose: 650 mg Apixaban (Apixaban 2.5 Mg Tablet) 2.5 mg PO BID [facility] Last Admin: 01/08/22 08:41 Dose: 2.5 mg Calcium Carbonate/Glycine (Calcium Carbonate Chew 500 Mg Tablet) 500 mg PO TID PRN PRN Reason: Heartburn Last Admin: 01/02/22 22:33 Dose: 500 mg Digoxin (Digoxin 125 Mcg Tablet) 125 mcg PO DAILY [facility] Last Admin: 01/08/22 08:41 Dose: 125 mcg Ferrous Sulfate (Ferrous Sulfate 325 Mg Tablet) 325 mg PO DAILYWM [facility] Last Admin: 01/08/22 08:40 Dose: 325 mg Lisinopril (Lisinopril 5 Mg Tablet) 2.5 mg PO DAILY [facility] Metoprolol Succinate (Metoprolol Succinate 25 Mg Tablet) 25 mg PO DAILY [facility] Last Admin: 01/08/22 08:41 Dose: 25 mg Ondansetron HCl (Ondansetron 4 Mg/2 Ml Vial) 4 mg IVP Q6HR PRN PRN Reason: Nausea / Vomiting Pantoprazole Sodium (Pantoprazole 40 Mg Tablet) 40 mg PO QDAC [facility] Last Admin: 01/08/22 05:22 Dose: 40 mg Potassium Chloride (Potassium Chloride 20 Meq Tablet) 20 meq PO 0800 [facility] Last Admin: 01/08/22 08:40 Dose: 20 meq Quetiapine Fumarate (Quetiapine 25 Mg Tablet) 25 mg PO QPM [facility] Last Admin: 01/07/22 20:10 Dose: 25 mg Sodium Chloride (Sodium Chloride Flush 0.9% 10 Ml Syringe) 10 ml IVP PRN PRN PRN Reason: NEEDED PER PROVIDER ORDERS Sodium Chloride (Sodium Chloride Flush 0.9% 10 Ml Syringe) 10 ml IVP 0100,0900,1700 [facility] Last Admin: 01/08/22 08:42 Dose: 10 ml Timolol Maleate (Timolol 0.5% Ophth Drops) 1 drops EACHEYE BID [facility] Last Admin: 01/08/22 08:42 Dose: 1 drops Trazodone HCl (Trazodone 50 Mg Tablet) 50 mg PO [facility] Last Admin: 01/07/22 20:10 Dose: 50 mg Metoprolol Succinate [Toprol Xl] 25 mg PO DAILY 05/17/15 Omeprazole 20 mg PO QDAC 05/17/15 Apixaban [Eliquis] 2.5 mg PO BID 01/02/22 Furosemide [Lasix] 20 mg PO DAILY 01/02/22 Potassium Chloride [K-Dur] 20 meq PO 0800 01/02/22 QUEtiapine [SEROquel] 25 mg PO QPM 01/02/22 Timolol 0.5% Ophth Drops [Timoptic 0.5% Ophth Drops] 1 drops EACHEYE BID 01/02/22 hydroCHLOROthiazide [Hydrodiuril] 12.5 mg PO DAILY 01/02/22 traZODone [Desyrel] 50 mg PO 01/02/22 Objective - Vital Signs/Intake & Output Reviewed Vital Signs: Yes Vital Signs: Vital Signs x48h Temp Pulse Pulse Resp BP Pulse Ox 01/08/22 05:05 36.4 C L 63 18 98/53 L 99 01/07/22 23:55 36.5 C 97 16 96/37 L 95 Intake & Output: Intake & Output 01/05/22 01/06/22 01/07/22 01/08/22 23:59 23:59 23:59 23:59 Intake Total 1350 780 562 Output Total 192 3000 2250 Balance -349 -3227 -7450 - Objective General Appearance: positive: No acute distress, Alert Eyes Bilateral: positive: Normal inspection ENT: positive: ENT inspection nml, No signs of dehydration Neck: positive: Nml inspection, No JVD Respiratory: positive: Chest non-tender, No respiratory distress, Rales (Inspiratory rales in bilateral lung bases) Cardiovascular: positive: Irregularly irregular. negative: Tachycardia Peripheral Pulses: 2+ Radial (R), 2+ Radial (L), 2+ Dorsalis pedis (R), 2+ Dorsalis pedis (L) Abdomen: positive: Non-tender Skin: positive: Color nml, Warm, Dry Extremities: positive: Nml appearance, No pedal edema Neurologic/Psychiatric: positive: Oriented x3 - Lab Results Fish Bones: 01/08/22 05:10 01/08/22 05:10 Other Labs: Lab Results x24hrs 01/08/22 01/08/22 01/08/22 Range/Units 05:10 05:10 05:10 WBC 5.9 (4.8-10.8) x10^3/uL RBC 3.99 L (4.20-5.40) 10^6/uL Hgb 10.3 L (12.0-16.0) g/dL Hct 33.5 L (37.0-47.0) % MCV 84.0 (81.0-99.0) fL MCH 25.8 L (27.0-31.0) pg MCHC 30.7 L (32.0-36.0) g/dL RDW 13.8 (12.0-15.0) % Plt Count 237 (130-450) 10^3/uL MPV 9.3 (7.9-10.8) fL Neut # (Auto) 2.8 (1.5-6.6) 10^3/uL Lymph # (Auto) 2.2 (1.5-3.5) 10^3/uL [place] # (Auto) 0.7 (0.0-1.0) 10^3/uL Eos # (Auto) 0.2 (0.0-0.7) 10^3/uL Baso # (Auto) 0.0 (0.0-0.1) 10^3/uL Absolute Nucleated RBC 0.00 x10^3/uL Nucleated RBC % 0.0 /100WBC Sodium 139 (135-145) mmol/L Potassium 3.8 (3.5-5.0) mmol/L Chloride 101 (101-111) mmol/L Carbon Dioxide 28 (21-32) mmol/L Anion Gap 10.0 (6-13) BUN 22 H (6-20) mg/dL Creatinine 1.3 H (0.4-1.0) mg/dL Estimated GFR (MDRD) 39 L (>89) Glucose 94 (70-100) mg/dL Calcium 8.9 (8.5-10.3) mg/dL B-Natriuretic Peptide 1030 H (5-100) pg/mL - Diagnostic Imaging Diagnostic Imaging Results: positive: See rad report Diagnostic Imaging Comments: Chest x-ray today shows mils cardiomegaly with small bilateral pleural effusions and interstitial prominence. ABX Reporting Has patient been on IV antibiotics over the past 48 hours?: No Sepsis Event Note (H) - Evaluation Current Stage of Sepsis: Ruled out Assessment/Plan - Problem List (1) Acute on chronic systolic CHF (congestive heart failure) Impression: She seems to be improving today, her fluid output was 2250 mL yesterday and she is likely at her baseline dry weight. Echocardiogram revealed an ejection frac tion of 25. Chest x-ray today shows mild cardiomegaly with small bilateral pleural effusions, consistent with continued CHF. It looks unchanged from her x- ray upon admission 1 week ago. BNP still elevated but steady, 1030 today. She walked with nursing today and did well, no dyspnea but she was fatigued afterwards. It has been difficult to diurese her due to the hypotension so we have decided to split up her medications to prevent hypotension. She received metoprolol this morning. Her renal function is stable, creatinine is at baseline so we will add 2.5 mg lisinopril around 1100 today. We will switch from IV to PO Lasix this afternoon. Continue to monitor I/Os today. She is still on the wait list at [place], however if we are unable to obtain a bed and she is no longer in acute heart failure with stable blood pressure then we may discharge her home and set up outpatient follow-up with her environmental field professional, possibly tomorrow. We will consult with cardiology tomorrow to determine this. We discussed this with the patient and her who are in agreement with the plan if this is what is necessary. (2) Hypotension Impression: This has limited our ability to diurese her. Her blood pressure is 98/53 this morning. She remains asymptomatic. She has received metoprolol and digoxin this morning. Hold off on lisinopril until 1100 and Lasix until this afternoon to split the dosing and prevent hypotension. (3) Atrial fibrillation with RVR Impression: Her heart rate remains controlled on metoprolol and digoxin. We will continue these as well as Eliquis. (4) Iron deficiency anemia Impression: Plan to continue oral iron and monitor CBC. (5) Acute kidney injury Impression: Resolved. Her renal function is back to her baseline, creatinine of 1.3. The acute kidney injury was due to cardiorenal syndrome. Continue to monitor her renal function as she is being diuresed and receiving lisinopril (6) Hyponatremia Impression: Resolved. This was hypervolemic hyponatremia secondary to heart failure. Will continue to monitor BMP. (7) GERD (gastroesophageal reflux disease) Impression: Continue protonix
[2022-01-08] MEDS: FERROUS SULFATE 325 MG TABLET PO SCH (08:40)
[2022-01-08] MEDS: POTASSIUM CHLORIDE 20 MEQ TABLET PO SCH (08:40)
[2022-01-08] MEDS: APIXABAN 2.5 MG TABLET PO SCH ×2 (08:41→20:36)
[2022-01-08] MEDS: METOPROLOL SUCCINATE 25 MG TABLET PO SCH (08:41)
[2022-01-08] MEDS: DIGOXIN 125 MCG TABLET PO SCH (08:41)
[2022-01-08] MEDS: TIMOLOL 0.5% OPHTH DROPS EACHEYE SCH ×2 (08:42→20:36)
[2022-01-08] MEDS: SODIUM CHLORIDE FLUSH 0.9% 10 ML SYRINGE IVP SCH ×2 (08:42→17:17)
--- NOTE | 2022-01-08 10:30 | XRAY Report ---
PROCEDURE: Chest 1 View X-Ray INDICATIONS: Follow up CHF. TECHNIQUE: One view of the chest was acquired. COMPARISON: 01/01/2022, 12/20/2021, 04/05/2020 FINDINGS: Surgical changes and devices: Bilateral chest wall clips are seen. Left mammoplasty. Lungs and pleura: Low lung volumes can be seen, causing a crowded appearance to the lung markings. S [place] bilateral pleural effusions are seen. Generalized interstitial infiltrates are seen. No pneumoth orax is seen. Mediastinum: There is mild cardiomegaly. Calcification is seen of the aortic arch. Likely hiatal sandee ia. Bones and chest wall: No suspicious bony lesions. There is a remote right humeral neck fracture. Ag e-appropriate degenerative changes are seen. Overlying soft tissues appear unremarkable. IMPRESSION: Mild cardiomegaly with small bilateral pleural effusions and interstitial prominence. These findings are consistent with continued CHF. Incidental note is made of: Remote right humeral neck fracture Bilateral chest wall clips Left mammoplasty Likely hiatal hernia Reviewed by: Teddy Manriquez MD on 01/08/2022 9:28 AM [place] Approved by: Teddy Manriquez MD on 01/08/2022 9:28 AM [facility] Station ID: [id number]
[2022-01-08] MEDS: lisinopriL 5 MG TABLET PO SCH (11:29)
[2022-01-08] MEDS ORDERED: FUROSEMIDE 20 MG TABLET PO SCH (13:00)
[2022-01-08] MEDS: traZODone 50 MG TABLET PO SCH (20:36)
[2022-01-08] MEDS: QUEtiapine 25 MG TABLET PO SCH (20:36)
[2022-01-09] MEDS: SODIUM CHLORIDE FLUSH 0.9% 10 ML SYRINGE IVP SCH ×3 (00:45→15:48)
[2022-01-09 04:52] LABS: BASOPHILS % (AUTO) 0.7 %; EOSINOPHILS # (AUTO) 0.2 10^3/uL (0.0-0.7); EOSINOPHILS % (AUTO) 3.1 %; HCT - HEMATOCRIT 32.9 % (37.0-47.0); HGB - HEMOGLOBIN 10.1 g/dL (12.0-16.0); LYMPHOCYTES % (AUTO) 36.6 %; MEAN CORPUSCULAR HGB CONC 30.7 g/dL (32.0-36.0); MEAN CORPUSCULAR VOLUME 84.6 fL (81.0-99.0); MEAN PLATELET VOLUME 9.4 fL (7.9-10.8); MONOCYTES # (AUTO) 0.7 10^3/uL (0.0-1.0); MONOCYTES % (AUTO) 12.1 %; NEUTROPHILS # (AUTO) 2.6 10^3/uL (1.5-6.6); NEUTROPHILS % (AUTO) 47.1 %; PLT - PLATELET COUNT 224 10^3/uL (130-450); RED BLOOD COUNT 3.89 10^6/uL (4.20-5.40); RED CELL DISTRIBUTION WIDTH 13.9 % (12.0-15.0); WHITE BLOOD COUNT 5.6 x10^3/uL (4.8-10.8)
[2022-01-09 05:01] LABS: CALCIUM 8.6 mg/dL (8.5-10.3); CREATININE 1.4 mg/dL (0.4-1.0); POTASSIUM 3.7 mmol/L (3.5-5.0)
[2022-01-09] MEDS: PANTOPRAZOLE 40 MG TABLET PO SCH (06:33)
[2022-01-09] MEDS: lisinopriL 5 MG TABLET PO SCH (08:44)
[2022-01-09] MEDS: METOPROLOL SUCCINATE 25 MG TABLET PO SCH (08:44)
[2022-01-09] MEDS: FERROUS SULFATE 325 MG TABLET PO SCH (08:44)
[2022-01-09] MEDS: APIXABAN 2.5 MG TABLET PO SCH ×2 (08:45→20:19)
[2022-01-09] MEDS: DIGOXIN 125 MCG TABLET PO SCH (08:45)
[2022-01-09] MEDS: POTASSIUM CHLORIDE 20 MEQ TABLET PO SCH (08:45)
[2022-01-09] MEDS: TIMOLOL 0.5% OPHTH DROPS EACHEYE SCH ×2 (08:46→20:20)
[2022-01-09] MEDS ORDERED: CEFAZOLIN SODIUM IN 0.9 % NACL 2 GM/50 ML BAG IV ONE (08:47)
[2022-01-09] MEDS ORDERED: metroNIDAZOLE 500 MG/100 ML 500 MG/100 ML BAG ONE (08:47)
--- NOTE | 2022-01-09 11:31 | PROVIDER PROGRESS NOTE ---
Subjective - Prog Note Date Prog Note Date: 01/09/22 - Subjective Subjective: Nursing reported that she felt dizzy and lightheaded with activities morning but the patient states she felt relatively okay. Is able to walk and her dyspnea significantly improved. Current Medications - Current Medications Current Medications: Active Medications Acetaminophen (Acetaminophen 325 Mg Tablet) 650 mg PO Q4HR PRN PRN Reason: Pain 1 to 4 Last Admin: 01/08/22 18:44 Dose: 650 mg Apixaban (Apixaban 2.5 Mg Tablet) 2.5 mg PO BID [facility] Last Admin: 01/09/22 08:45 Dose: 2.5 mg Calcium Carbonate/Glycine (Calcium Carbonate Chew 500 Mg Tablet) 500 mg PO TID PRN PRN Reason: Heartburn Last Admin: 01/02/22 22:33 Dose: 500 mg Digoxin (Digoxin 125 Mcg Tablet) 125 mcg PO DAILY [facility] Last Admin: 01/09/22 08:45 Dose: 125 mcg Ferrous Sulfate (Ferrous Sulfate 325 Mg Tablet) 325 mg PO DAILYWM [facility] Last Admin: 01/09/22 08:44 Dose: 325 mg Furosemide (Furosemide 20 Mg Tablet) 20 mg PO BIDDIURETIC [facility] Metoprolol Succinate (Metoprolol Succinate 25 Mg Tablet) 25 mg PO DAILY [facility] Last Admin: 01/09/22 08:44 Dose: 25 mg Ondansetron HCl (Ondansetron 4 Mg/2 Ml Vial) 4 mg IVP Q6HR PRN PRN Reason: Nausea / Vomiting Pantoprazole Sodium (Pantoprazole 40 Mg Tablet) 40 mg PO QDAC [facility] Last Admin: 01/09/22 06:33 Dose: 40 mg Potassium Chloride (Potassium Chloride 20 Meq Tablet) 20 meq PO 0800 [facility] Last Admin: 01/09/22 08:45 Dose: 20 meq Quetiapine Fumarate (Quetiapine 25 Mg Tablet) 25 mg PO QPM [facility] Last Admin: 01/08/22 20:36 Dose: 25 mg Sodium Chloride (Sodium Chloride Flush 0.9% 10 Ml Syringe) 10 ml IVP PRN PRN PRN Reason: NEEDED PER PROVIDER ORDERS Sodium Chloride (Sodium Chloride Flush 0.9% 10 Ml Syringe) 10 ml IVP 0100,0900,1700 [facility] Last Admin: 01/09/22 08:46 Dose: 10 ml Timolol Maleate (Timolol 0.5% Ophth Drops) 1 drops EACHEYE BID [facility] Last Admin: 01/09/22 08:46 Dose: 1 drops Trazodone HCl (Trazodone 50 Mg Tablet) 50 mg PO [facility] Last Admin: 01/08/22 20:36 Dose: 50 mg Metoprolol Succinate [Toprol Xl] 25 mg PO DAILY 05/17/15 RX: Omeprazole 20 mg PO QDAC 05/17/15 Apixaban [Eliquis] 2.5 mg PO BID 01/02/22 Furosemide [Lasix] 20 mg PO DAILY 01/02/22 Potassium Chloride [K-Dur] 20 meq PO 0800 01/02/22 QUEtiapine [SEROquel] 25 mg PO QPM 01/02/22 Timolol 0.5% Ophth Drops [Timoptic 0.5% Ophth Drops] 1 drops EACHEYE BID 01/02/22 hydroCHLOROthiazide [Hydrodiuril] 12.5 mg PO DAILY 01/02/22 traZODone [Desyrel] 50 mg PO 01/02/22 Objective - Vital Signs/Intake & Output Reviewed Vital Signs: Yes Vital Signs: Vital Signs x48h Temp Pulse Resp BP Pulse Ox 01/09/22 08:11 36.8 C 61 16 104/44 L 100 01/09/22 05:32 36.6 C 56 L 16 80/49 L 99 Intake & Output: Intake & Output 01/06/22 01/07/22 01/08/22 01/09/22 23:59 23:59 23:59 23:59 Intake Total 780 562 820 170 Output Total 3000 2250 1300 0 Balance -2220 -1688 -480 170 - Objective General Appearance: positive: No acute distress, Alert Eyes Bilateral: positive: Conjunctivae nml ENT: positive: ENT inspection nml Neck: positive: Nml inspection Respiratory: positive: No respiratory distress. negative: Wheezes, Rales Cardiovascular: positive: Irregularly irregular. negative: Tachycardia Skin: positive: Warm, Dry Extremities: positive: No pedal edema Neurologic/Psychiatric: negative: Disoriented to person, Disoriented to place - Lab Results Fish Bones: 01/09/22 04:16 01/09/22 04:16 Other Labs: Lab Results x24hrs 01/09/22 01/09/22 01/09/22 Range/Units 04:16 04:16 04:16 WBC 5.6 (4.8-10.8) x10^3/uL RBC 3.89 L (4.20-5.40) 10^6/uL Hgb 10.1 L (12.0-16.0) g/dL Hct 32.9 L (37.0-47.0) % MCV 84.6 (81.0-99.0) fL MCH 26.0 L (27.0-31.0) pg MCHC 30.7 L (32.0-36.0) g/dL RDW 13.9 (12.0-15.0) % Plt Count 224 (130-450) 10^3/uL MPV 9.4 (7.9-10.8) fL Neut # (Auto) 2.6 (1.5-6.6) 10^3/uL Lymph # (Auto) 2.0 (1.5-3.5) 10^3/uL [place] # (Auto) 0.7 (0.0-1.0) 10^3/uL Eos # (Auto) 0.2 (0.0-0.7) 10^3/uL Baso # (Auto) 0.0 (0.0-0.1) 10^3/uL Absolute Nucleated RBC 0.00 x10^3/uL Nucleated RBC % 0.0 /100WBC Sodium 135 (135-145) mmol/L Potassium 3.7 (3.5-5.0) mmol/L Chloride 98 L (101-111) mmol/L Carbon Dioxide 27 (21-32) mmol/L Anion Gap 10.0 (6-13) BUN 24 H (6-20) mg/dL Creatinine 1.4 H (0.4-1.0) mg/dL Estimated GFR (MDRD) 36 L (>89) Glucose 88 (70-100) mg/dL Calcium 8.6 (8.5-10.3) mg/dL B-Natriuretic Peptide 646 H (5-100) pg/mL Sepsis Event Note (H) - Evaluation Current Stage of Sepsis: Ruled out Assessment/Plan - Problem List (1) Acute on chronic systolic CHF (congestive heart failure) Impression: She is no longer in acute heart failure. She is no longer dyspneic with activity and her BNP is down to 600. Echocardiogram this admission revealed ejection fraction of 20 to 25%. The plan was to transfer to [facility] in [place] as recommended by boat outfitter but they have no beds available. Given she is now euvolemic, we are looking to discharge her home. Unfortunately, she not ready to be discharged today due to hypotension we will need to adjust her heart failure medications. We will split up her Lasix to focus was 20 mg twice daily instead of 40 mg daily. We will discontinue the lisinopril due to her systolic blood pressure being in the 80s. We will continue metoprolol. I have attempted to call her boat outfitter but given it is ' Day, I believe their office is closed. We will need to try again tomorrow as we would like to have a discharge plan in place with her boat outfitter for follow-up before discharge. (2) Hypotension Impression: This is secondary to the heart failure therapy. Her systolic blood pressure was in the 80s this morning and although it had improved to the 100s, after receiving metoprolol and the lisinopril, she decreased again to the 80s systolic. We will therefore split up her Lasix dose to 20 mg twice daily as mentioned above and discontinue the lisinopril. We will continue the current dose of metoprolol. (3) Atrial fibrillation with rapid ventricular response Impression: Her heart rate remains controlled on metoprolol and digoxin. We will continue these as well as Eliquis. We will check a digoxin level in the morning. (4) Iron deficiency anemia Impression: Her hemoglobin is stable. She is iron deficient and we have started her on oral iron supplementation. (5) GERD (gastroesophageal reflux disease) Impression: Continue Protonix. (6) Acute kidney injury Impression: This is resolved. Her creatinine is slightly increased today 1.4 but is likely due to the lisinopril that was initiated yesterday. Her baseline creatinine is around 1.2. We will continue to monitor her renal function closely. (7) Hyponatremia Impression: This has resolved. This was hypovolemic hyponatremia secondary to the heart failure.
[2022-01-09] MEDS: FUROSEMIDE 20 MG TABLET PO SCH (13:52)
[2022-01-09] MEDS: ACETAMINOPHEN 325 MG TABLET PO PRN (15:43)
[2022-01-09] MEDS: QUEtiapine 25 MG TABLET PO SCH (20:19)
[2022-01-09] MEDS: traZODone 50 MG TABLET PO SCH (20:19)
[2022-01-10] MEDS: ACETAMINOPHEN 325 MG TABLET PO PRN ×2 (00:02→06:02)
[2022-01-10] MEDS: SODIUM CHLORIDE FLUSH 0.9% 10 ML SYRINGE IVP SCH ×4 (00:03→20:20)
[2022-01-10 05:02] LABS: BASOPHILS % (AUTO) 0.6 %; EOSINOPHILS # (AUTO) 0.2 10^3/uL (0.0-0.7); EOSINOPHILS % (AUTO) 3.2 %; HCT - HEMATOCRIT 32.2 % (37.0-47.0); HGB - HEMOGLOBIN 9.9 g/dL (12.0-16.0); LYMPHOCYTES % (AUTO) 39.1 %; MEAN CORPUSCULAR HEMOGLOBIN 25.8 pg (27.0-31.0); MEAN CORPUSCULAR HGB CONC 30.7 g/dL (32.0-36.0); MEAN CORPUSCULAR VOLUME 83.9 fL (81.0-99.0); MONOCYTES # (AUTO) 0.7 10^3/uL (0.0-1.0); MONOCYTES % (AUTO) 12.8 %; NEUTROPHILS # (AUTO) 2.2 10^3/uL (1.5-6.6); NEUTROPHILS % (AUTO) 43.9 %; PLT - PLATELET COUNT 227 10^3/uL (130-450); RED BLOOD COUNT 3.84 10^6/uL (4.20-5.40); RED CELL DISTRIBUTION WIDTH 13.8 % (12.0-15.0); WHITE BLOOD COUNT 5.1 x10^3/uL (4.8-10.8)
[2022-01-10 05:14] LABS: CALCIUM 8.5 mg/dL (8.5-10.3); CREATININE 1.2 mg/dL (0.4-1.0); POTASSIUM 3.7 mmol/L (3.5-5.0)
[2022-01-10 05:22] LABS: DIGOXIN 0.6 ng/mL
[2022-01-10] MEDS: PANTOPRAZOLE 40 MG TABLET PO SCH (06:03)
[2022-01-10] MEDS: FUROSEMIDE 20 MG TABLET PO SCH ×2 (06:03→12:58)
[2022-01-10] MEDS: APIXABAN 2.5 MG TABLET PO SCH ×2 (10:23→20:10)
[2022-01-10] MEDS: METOPROLOL SUCCINATE 25 MG TABLET PO SCH (10:23)
[2022-01-10] MEDS: FERROUS SULFATE 325 MG TABLET PO SCH (10:24)
[2022-01-10] MEDS: POTASSIUM CHLORIDE 20 MEQ TABLET PO SCH (10:24)
[2022-01-10] MEDS: DIGOXIN 125 MCG TABLET PO SCH (10:24)
[2022-01-10] MEDS: TIMOLOL 0.5% OPHTH DROPS EACHEYE SCH ×2 (10:26→20:14)
[2022-01-10] MEDS: MIDODRINE 2.5 MG TABLET PO SCH ×2 (11:59→17:05)
--- NOTE | 2022-01-10 16:38 | PROVIDER PROGRESS NOTE ---
Assessment/Plan - Problem List (1) Hypotension Assessment/Plan: This is secondary to the heart failure therapy. Her systolic blood pressure was in the 80s this morning and although it had improved to the 100s, after receiving metoprolol We have therefore split up her Lasix dose to 20 mg twice daily and discontinued the lisinopril. We will continue the current dose of metoprolol. Will start Midodrine 2.5 mg tid with meals amd continue to check orthostatic VS q shift (2) Hyponatremia Assessment/Plan: This has recurred. This is liklely hypovolemic hyponatremia secondary to diuresis. Will follow [facility], with the Lasix split dose (3) Acute on chronic systolic CHF (congestive heart failure) Assessment/Plan: Resolved. She is no longer in acute heart failure. She is no longer dyspneic with activity and her BNP is down to 600. Echocardiogram this admission revealed ejection fraction of 20 to 25%. The plan was to transfer to [facility] in [place] as recommended by vegetable cook but they have no beds available. Given she is now euvolemic, we are looking to discharge her home. Unfortunately, she not ready to be discharged today due to hypotension we will need to adjust her heart failure medications. We have split up her Lasix to focus was 20 mg twice daily instead of 40 mg daily. We discontinued the lisinopril due to her systolic blood pressure being in the 80s. We will continue metoprolol. (4) Acute kidney injury Assessment/Plan: Resolved, but her creat runs slightly elevated, possibly her new normal (ie CKD) (5) Atrial fibrillation with RVR Assessment/Plan: The RVR has resolved. Her heart rate remains controlled on metoprolol and digoxin. A digoxin level was 0.6 this morning. We will continue these as well as Eliquis. (6) Iron deficiency anemia Assessment/Plan: Her hemoglobin is stable. She is iron deficient and we have started her on oral iron supplementation. (7) GERD (gastroesophageal reflux disease) Assessment/Plan: Stable with no complaints on current treatment - Current Meds Current Meds: Current Medications Generic Name Dose Route Start Last Admin Trade Name Freq PRN Reason Stop Dose Admin Acetaminophen 650 mg 01/02/22 07:23 01/10/22 06:02 Acetaminophen 325 Mg Tablet PO 650 mg Q4HR PRN Administration Pain 1 to 4 Apixaban 2.5 mg 01/02/22 21:00 01/10/22 10:23 Apixaban 2.5 Mg Tablet PO 2.5 mg BID KATY Administration Calcium Carbonate/Glycine 500 mg 01/02/22 22:24 01/02/22 22:33 Calcium Carbonate Chew 500 Mg Tablet PO 500 mg TID PRN Administration Heartburn Digoxin 125 mcg 01/03/22 09:00 01/10/22 10:24 Digoxin 125 Mcg Tablet PO 125 mcg DAILY KATY Administration Ferrous Sulfate 325 mg 01/07/22 08:00 01/10/22 10:24 Ferrous Sulfate 325 Mg Tablet PO 325 mg DAILYWM KATY Administration Furosemide 20 mg 01/09/22 14:00 01/10/22 12:58 Furosemide 20 Mg Tablet PO 20 mg BIDDIURETIC KATY Administration Metoprolol Succinate 25 mg 01/03/22 09:00 01/10/22 10:23 Metoprolol Succinate 25 Mg Tablet PO 25 mg DAILY KATY Administration Midodrine 2.5 mg 01/10/22 12:00 01/10/22 11:59 Midodrine 2.5 Mg Tablet PO 2.5 mg TIDWM KATY Administration Pantoprazole Sodium 40 mg 01/03/22 09:30 01/10/22 06:03 Pantoprazole 40 Mg Tablet PO 40 mg QDAC KATY Administration Potassium Chloride 20 meq 01/03/22 08:00 01/10/22 10:24 Potassium Chloride 20 Meq Tablet PO 20 meq 0800 KATY Administration Quetiapine Fumarate 25 mg 01/02/22 21:00 01/09/22 20:19 Quetiapine 25 Mg Tablet PO 25 mg QPM KATY Administration Sodium Chloride 10 ml 01/02/22 09:00 01/10/22 10:30 Sodium Chloride Flush 0.9% 10 Ml Syringe IVP 10 ml 0100,0900,1700 KATY Administration Timolol Maleate 1 drops 01/02/22 21:00 01/10/22 10:26 Timolol 0.5% Ophth Drops EACHEYE 1 drops BID KATY Administration Trazodone HCl 50 mg 01/02/22 21:00 01/09/22 20:19 Trazodone 50 Mg Tablet PO 50 mg HS KATY Administration - Lab Result Fish Bone Diagrams: 01/10/22 04:24 01/10/22 04:24 - Additional Planning My Orders: My Active Orders 01/10/22 11:05 Orthostatic [Vital Signs - Orthostatic] [RC] QSHIFT 01/10/22 12:00 Midodrine [ProAmatine] 2.5 mg PO TIDWM Subjective - Subjective Patient Reports: Feeling Better, Resting Comfortably, Other (Has weakness when walking, no dizziness) Objective Vital Signs: Vital Signs - 24 hr 01/09/22 01/09/22 01/10/22 20:16 23:51 05:52 Temperature 36.6 C 36.6 C 36.3 C L Heart Rate [ 80 Brachial] Heart Rate [ 80 Monitoring electrodes] Heart Rate [ 60 Radial] Respiratory 20 18 18 Rate Blood Pressure 99/48 L [Right Brachial artery] Blood Pressure 81/48 L 83/55 L [Right Radial artery] O2 Saturation 98 96 97 01/10/22 01/10/22 01/10/22 07:35 12:24 16:18 Temperature 36.7 C 36.6 C 36.6 C Heart Rate [ 78 62 89 Brachial] Heart Rate [ Monitoring electrodes] Heart Rate [ Radial] Respiratory 16 16 17 Rate Blood Pressure 93/43 L 98/54 L 94/54 L [Right Brachial artery] Blood Pressure [Right Radial artery] O2 Saturation 100 100 100 Oxygen O2 Source Room air Oxygen Flow Rate 2 I&O (Last 24 Hrs): Intake and Output Totals x24h 01/08/22 01/09/22 01/10/22 23:59 23:59 23:59 Intake Total 820 877 240 Output Total 0515 198 4376 Balance -480 602 -860 General: Alert, Oriented x3 HEENT: Mucous membr. moist/pink, Other (Pale) Neck: Supple Neuro: Alert, Non Focal Cardiovascular: Other (Irreg, 2/6 murmur) Respiratory: No respiratory distress, Breath sounds nml Abdomen: Normal bowel sounds, Soft Extremities: No clubbing, No edema, No tenderness/swelling - Results Results: Laboratory Results WBC 5.1 x10^3/uL (4.8-10.8) 01/10/22 04:24 RBC 3.84 10^6/uL (4.20-5.40) L 01/10/22 04:24 Hgb 9.9 g/dL (12.0-16.0) L 01/10/22 04:24 Hct 32.2 % (37.0-47.0) L 01/10/22 04:24 MCV 83.9 fL (81.0-99.0) 01/10/22 04:24 MCH 25.8 pg (27.0-31.0) L 01/10/22 04:24 MCHC 30.7 g/dL (32.0-36.0) L 01/10/22 04:24 RDW 13.8 % (12.0-15.0) 01/10/22 04:24 Plt Count 227 10^3/uL (130-450) 01/10/22 04:24 MPV 9.0 fL (7.9-10.8) 01/10/22 04:24 Neut # (Auto) 2.2 10^3/uL (1.5-6.6) 01/10/22 04:24 Lymph # (Auto) 2.0 10^3/uL (1.5-3.5) 01/10/22 04:24 [place] # (Auto) 0.7 10^3/uL (0.0-1.0) 01/10/22 04:24 Eos # (Auto) 0.2 10^3/uL (0.0-0.7) 01/10/22 04:24 Baso # (Auto) 0.0 10^3/uL (0.0-0.1) 01/10/22 04:24 Absolute Nucleated RBC 0.00 x10^3/uL 01/10/22 04:24 Nucleated RBC % 0.0 /100WBC 01/10/22 04:24 PT 16.6 secs (9.9-12.6) H 01/02/22 15:54 INR 1.5 (0.8-1.2) H 01/02/22 15:54 Sodium 133 mmol/L (135-145) L 01/10/22 04:24 Potassium 3.7 mmol/L (3.5-5.0) 01/10/22 04:24 Chloride 99 mmol/L (101-111) L 01/10/22 04:24 Carbon Dioxide 25 mmol/L (21-32) 01/10/22 04:24 Anion Gap 9.0 (6-13) 01/10/22 04:24 BUN 22 mg/dL (6-20) H 01/10/22 04:24 Creatinine 1.2 mg/dL (0.4-1.0) H 01/10/22 04:24 Estimated GFR (MDRD) 43 (>89) L 01/10/22 04:24 Glucose 86 mg/dL (70-100) 01/10/22 04:24 Calcium 8.5 mg/dL (8.5-10.3) 01/10/22 04:24 Iron 21 ug/dL (28-170) L 01/06/22 05:33 TIBC 414 ug/dL (250-450) 01/06/22 05:33 % Saturation 5 % (20-50) L 01/06/22 05:33 Transferrin 296 mg/dL (192-382) 01/06/22 05:33 Ferritin 9.3 ng/mL (11.0-306.8) L 01/06/22 05:33 Total Bilirubin 1.3 mg/dL (0.2-1.0) H 01/01/22 22:45 AST 56 IU/L (10-42) H 01/01/22 22:45 ALT 48 IU/L (10-60) 01/01/22 22:45 Alkaline Phosphatase 81 IU/L (42-121) 01/01/22 22:45 Troponin I High Sens 11.3 ng/L (2.3-14.8) 01/05/22 11:33 B-Natriuretic Peptide 646 pg/mL (5-100) H 01/09/22 04:16 Total Protein 6.3 g/dL (6.7-8.2) L 01/01/22 22:45 Albumin 3.8 g/dL (3.2-5.5) 01/01/22 22:45 Globulin 2.5 g/dL (2.1-4.2) 01/01/22 22:45 Albumin/Globulin Ratio 1.5 (1.0-2.2) 01/01/22 22:45 Lipase 41 U/L (22-51) 01/01/22 22:45 Cortisol AM Sample 5.7 ug/dL 01/10/22 04:24 Urine Color YELLOW 01/01/22 11:59 Urine Clarity CLEAR (CLEAR) 01/01/22 11:59 Urine pH 5.5 PH (5.0-7.5) 01/01/22 11:59 Ur Specific [place] 1.010 (1.002-1.030) 01/01/22 11:59 Urine Protein NEGATIVE mg/dL (NEGATIVE) 01/01/22 11:59 Urine Glucose (UA) NEGATIVE mg/dL (NEGATIVE) 01/01/22 11:59 Urine Ketones NEGATIVE mg/dL (NEGATIVE) 01/01/22 11:59 Urine Occult Blood SMALL (NEGATIVE) H 01/01/22 11:59 Urine Nitrite NEGATIVE (NEGATIVE) 01/01/22 11:59 Urine Bilirubin NEGATIVE (NEGATIVE) 01/01/22 11:59 Urine Urobilinogen 0.2 (NORMAL) E.U./dL (NORMAL) 01/01/22 11:59 Ur Leukocyte Esterase NEGATIVE (NEGATIVE) 01/01/22 11:59 Urine RBC 0-5 /HPF (0-5) 01/01/22 11:59 Urine WBC 0-3 /HPF (0-5) 01/01/22 11:59 Ur Squamous Epith Cells FEW Squamous (<= Few) 01/01/22 11:59 Urine Bacteria Few /HPF (None Seen) 01/01/22 11:59 Urine Casts 0-2 Hyaline Casts /LPF 01/01/22 11:59 Ur Microscopic Review INDICATED 01/01/22 11:59 Urine Culture Comments NOT INDICATED 01/01/22 11:59 Nasal Adenovirus (PCR) NOT DETECTED 01/02/22 01:10 Nasal B. parapertussis DNA (PCR) NOT DETECTED 01/02/22 01:10 Nasal Coronavir 229E PCR NOT DETECTED 01/02/22 01:10 Nasal Coronavir HKU1 PCR NOT DETECTED 01/02/22 01:10 Nasal Coronavir NL63 PCR NOT DETECTED 01/02/22 01:10 Nasal Coronavir OC43 PCR NOT DETECTED 01/02/22 01:10 Nasal Enterovir/Rhinovir PCR NOT DETECTED 01/02/22 01:10 Nasal Influenza B PCR NOT DETECTED 01/02/22 01:10 Nasal Influenza A PCR NOT DETECTED 01/02/22 01:10 Nasal Parainfluen 1 PCR NOT DETECTED 01/02/22 01:10 Nasal Parainfluen 2 PCR NOT DETECTED 01/02/22 01:10 Nasal Parainfluen 3 PCR NOT DETECTED 01/02/22 01:10 Nasal Parainfluen 4 PCR NOT DETECTED 01/02/22 01:10 Nasal RSV (PCR) NOT DETECTED 01/02/22 01:10 Nasal B.pertussis DNA PCR NOT DETECTED 01/02/22 01:10 Nasal C.pneumoniae (PCR) NOT DETECTED 01/02/22 01:10 Eugenio Human Metapneumo PCR NOT DETECTED 01/02/22 01:10 Nasal M.pneumoniae (PCR) NOT DETECTED 01/02/22 01:10 Nasal SARS-CoV-2 (PCR) NOT DETECTED 01/02/22 01:10 Last Dose Date UNKNOWN 01/10/22 04:24 Last Dose Time UNKNOWN 01/10/22 04:24 Digoxin 0.6 ng/mL 01/10/22 04:24 Sepsis Event Note (H) - Evaluation Current Stage of Sepsis: Ruled out
[2022-01-10] MEDS: traZODone 50 MG TABLET PO SCH (20:10)
[2022-01-10] MEDS: QUEtiapine 25 MG TABLET PO SCH (20:10)
[2022-01-11 05:15] LABS: BASOPHILS % (AUTO) 0.7 %; EOSINOPHILS # (AUTO) 0.1 10^3/uL (0.0-0.7); HCT - HEMATOCRIT 32.4 % (37.0-47.0); LYMPHOCYTES # (AUTO) 1.8 10^3/uL (1.5-3.5); LYMPHOCYTES % (AUTO) 33.4 %; MEAN CORPUSCULAR HEMOGLOBIN 25.8 pg (27.0-31.0); MEAN CORPUSCULAR HGB CONC 30.9 g/dL (32.0-36.0); MEAN CORPUSCULAR VOLUME 83.5 fL (81.0-99.0); MEAN PLATELET VOLUME 9.2 fL (7.9-10.8); MONOCYTES # (AUTO) 0.7 10^3/uL (0.0-1.0); MONOCYTES % (AUTO) 13.6 %; NEUTROPHILS # (AUTO) 2.7 10^3/uL (1.5-6.6); NEUTROPHILS % (AUTO) 49.9 %; PLT - PLATELET COUNT 222 10^3/uL (130-450); RED BLOOD COUNT 3.88 10^6/uL (4.20-5.40); WHITE BLOOD COUNT 5.5 x10^3/uL (4.8-10.8)
[2022-01-11 05:23] LABS: CALCIUM 8.7 mg/dL (8.5-10.3); CREATININE 1.1 mg/dL (0.4-1.0); POTASSIUM 3.8 mmol/L (3.5-5.0)
[2022-01-11] MEDS: FUROSEMIDE 20 MG TABLET PO SCH (06:19)
[2022-01-11] MEDS: PANTOPRAZOLE 40 MG TABLET PO SCH (06:19)
[2022-01-11 07:29] VITALS: BP 108/48
--- NOTE | 2022-01-11 07:37 | Discharge Plan ---
Discharge Plan Problem Reviewed?: Yes Disposition: Home, Self Care Condition: Stable Prescriptions: Ferrous Sulfate [Feosol] 325 mg PO DAILYWM #30 tablet Digoxin [Lanoxin] 125 mcg PO Q2D #15 tablet Furosemide [Lasix] 20 mg PO BIDWM #60 tab Midodrine [ProAmatine] 2.5 mg PO BIDWM #60 tablet Diet: Low Sodium Activity Restrictions: Activity as Tolerated Shower Restrictions: No Instruction Topics: Heart Failure Diet Changes Health Concerns: You were hospitalized due to fluid overload from CHF (weakness of the heart muscle). The fluid has been removed by using the water pill twice a day now and you are being discharged. Please follow the NEW list of medications and resume all your previous nedicines except stop taking the Hydrochlorothiazide. New prescriptions were electronically sent to your [facility] pharmacy in [place]. You need to have follow-up soon with Dr. Barton, your Sieve Maker. Plan of Treatment: As above. Care Goals: Improvement in symptoms and stabilization are the goals. Assessment: The patient understands and is agreeable with the plan. Additional Instructions or Follow Up instructions: If you have new or worsening symptoms, call your PCP or your Sieve Maker for advice or come to the ED. No Smoking: If you smoke, Please STOP! Call for help. Follow-up with: Rut Barton MD [Provider Admit Priv/Credential] -
--- NOTE | 2022-01-11 07:48 | DISCHARGE SUMMARY ---
Discharge Summary Admit Date: 01/02/22 Discharge Date: 01/11/22 Discharging Provider: Dr Donna Elmore Primary Care Provider: Josiah Pozo NP, (Dr Shayy Barton, Cardiology) Code Status: Attempt Resuscitation Condition at Discharge: Stable Discharge Disposition: [facility] History of Present Illness: From the admission H&P of Dr. Serina [facility]ilaaultman hospital[facility]: This is an 86-year-old white female with a history of congestive heart failure and atrial fibrillation, who has developed increased shortness of breath. She has been on Eliquis for the past 4 to 5 years she has an allergy to iodine and most recently her D-dimer was negative. She returned from visiting [place] on 14 December 2021, and was seen at [facility] in [place] where she was diagnosed with atrial fibrillation with RVR and she failed cardioversion, was slowed with diltiazem and discharged. She was placed on increased diuretic as an outpatient by her Membership Sales Advisor, Dr Barton, which she failed to obtain and on 21 December (12 days ago) she was seen here in our emergency department again with Waylon butler with RVR and exacerbation of congestive failure. At that time she was given a dose of Lasix IV and diltiazem IV with improvement and was sent home. The patient still reports exertional dyspnea with minimal exertion and marked symptoms. Today she arrives to the emergency department with the same complaints of marked shortness of breath and a "positive suitcase sign". She received a total of 120 mg of Lasix IV in divided doses in the ED. This resulted in a significant drop in her blood pressure to a systolic blood pressure of 70s. As a result gentle IV hydration was initiated and she was presented for admission for further treatment. Her rhythm showed Afib at rates of 110-125. At bedside upon arrival to the [facility] floor, she was resting comfortably but sitting upright. She had mild conversational dyspnea. However when asked she denied currently feeling shortness of breath and was noted to be a poor historian. She however reported significant dyspnea on exertion. She denied chest pain, abdominal pain, nausea, vomiting, fever or chills. - HOSPITAL COURSE Hospital Course: (1) Acute on chronic systolic CHF (congestive heart failure) Echocardiogram this admission revealed ejection fraction of 20 to 25%. Her troponins ruled her out for an acute UT. The plan was to transfer to [facility] in [place] as recommended by her Membership Sales Advisor (Dr Barton) during a phone call to her, but they had no open beds available at [facility] during her entire stay here. She was diuresed and started on ANGELA-I but medications needed to be adjusted due to her hypotension. B-wero was continued but we had to split up her Lasix dose and discontinued the lisinopril and could not start Spironolactone due to her systolic blood pressure being in the 80s. She was gently diureses, meds adjusted and she became euvolemic, able to sleep supine, and was discharged home. Her grandson Anthony requested that she have referral for home health nursing because of her poor memory, which was done. (2) Hypotension This continued throughout the hospital stay and was worsened by her heart failure therapy. Her systolic blood pressure was in the 80's-90's. Thus we had to do gentle iv diuresis and also split up her Lasix dose to twice daily. We also had to discontinued the lisinopril and we could not start Spironoloactone. Her dose of metoprolol was continued. Finally, we started Midodrine and checked orthostatic VS q shift. She was discharged on a new dose of Midodrine 2.5 mg to take with breakfast and dinner. (3) Atrial fibrillation with RVR The rapid rate resolved on Metoprolol and newly started Digoxin. A Dig level was 0.6 on daily Dig while here. She was discharged on new Digoxin 125 mcg every other day. We also continued her Eliquis. (4) Acute kidney injury Her creat of 1.4 improved (was possibly cardio-renal syndrome), but her new creat runs slightly elevated at 1.2, which is possibly her new normal (ie CKD). (5) Hyponatremia This was recurrent and liklely hypovolemic hyponatremia secondary to diuresis. (6) Iron deficiency anemia Her hemoglobin was stable. She is iron deficient and we have started her on oral iron supplementation and discharged on this. (7) GERD (gastroesophageal reflux disease) Stable with no complaints on current treatment - ALLERGIES Allergies/Adverse Reactions: Allergies Allergy/AdvReac Type Severity Reaction Status Date / Time benzocaine Allergy Severe Hives Verified 12/20/21 23:11 iodine Allergy Unknown Verified 01/01/22 23:02 loratadine [From Claritin] Allergy Unknown Verified 01/01/22 23:02 codeine AdvReac Anaphylaxis Verified 12/20/21 23:11 - MEDICATIONS Home Medications: Ambulatory Orders Medication Instructions Recorded Confirmed Metoprolol Succinate [Toprol Xl] 25 mg PO DAILY 05/17/15 01/02/22 Omeprazole 20 mg PO QDAC 05/17/15 01/02/22 Apixaban [Eliquis] 2.5 mg PO BID 01/02/22 01/02/22 Potassium Chloride [K-Dur] 20 meq PO 0800 01/02/22 01/02/22 QUEtiapine [SEROquel] 25 mg PO QPM 01/02/22 01/02/22 Timolol 0.5% Ophth Drops [Timoptic 1 drops EACHEYE BID 01/02/22 01/02/22 0.5% Ophth Drops] traZODone [Desyrel] 50 mg PO HS 01/02/22 01/02/22 Digoxin [Lanoxin] 125 mcg PO Q2D #15 tablet 01/11/22 Ferrous Sulfate [Feosol] 325 mg PO DAILYWM #30 tablet 01/11/22 Furosemide [Lasix] 20 mg PO BIDWM #60 tab 01/11/22 Midodrine [ProAmatine] 2.5 mg PO BIDWM #60 tablet 01/11/22 - PHYSICAL EXAM AT DISCHARGE General Appearance: positive: No acute distress, Alert, Other (Pale) Eyes Bilateral: positive: Normal inspection, PERRL ENT: positive: ENT inspection nml Neck: positive: Nml inspection, No JVD Respiratory: positive: No respiratory distress, Breath sounds nml Cardiovascular: positive: Irregularly irregular, Systolic murmur Abdomen: positive: Non-tender, No distention Skin: positive: Warm, Dry, Pallor Extremities: positive: Non-tender, No pedal edema Neurologic/Psychiatric: positive: Oriented x3 (Poor historian) - LABS Result Diagrams: 01/11/22 04:18 01/11/22 04:18 - DIAGNOSTIC IMAGING Diagnostic Imaging Results: Final report reviewed Diagnostic Imaging Results Comments: A resting echocardiogram was done. This showed Atrial enlargement. The left ventricle had severe global hypokinesis, EF 20 to 25%. The right ventricle also had moderately depressed function. She had severe mitral regurgitation and moderate tricuspid regurgitation. PA pressure was calculated at 49 mmHg and a dilated IVC. - SEPSIS Current Stage of Sepsis: Ruled out - FOLLOW UP Follow Up: Advised to see Dr Barton (Membership Sales Advisor) soon, and to have routine F/U with PCP. - TIME SPENT Time Spent in Discharge (Minutes): 60
[2022-01-11] MEDS: POTASSIUM CHLORIDE 20 MEQ TABLET PO SCH (08:40)
[2022-01-11] MEDS: METOPROLOL SUCCINATE 25 MG TABLET PO SCH (08:40)
[2022-01-11] MEDS: DIGOXIN 125 MCG TABLET PO SCH (08:40)
[2022-01-11] MEDS: APIXABAN 2.5 MG TABLET PO SCH (08:40)
[2022-01-11] MEDS: FERROUS SULFATE 325 MG TABLET PO SCH (08:40)
[2022-01-11] MEDS: MIDODRINE 2.5 MG TABLET PO SCH (08:40)
[2022-01-11] MEDS: SODIUM CHLORIDE FLUSH 0.9% 10 ML SYRINGE IVP SCH (08:41)
[2022-01-11] MEDS: TIMOLOL 0.5% OPHTH DROPS EACHEYE SCH (08:41)
== END 2022-01-11 10:16 | disposition home health service (06) | DRG 291 ==
LOC: EDUNIT# → ED 22:36 → MS2 01-02 07:23 → OBSVTOIN 01-02 18:24
PROVIDERS: ADMIT Internal Medicine; ATTEND Internal Medicine
DX: I11.0 Hypertensive heart disease with heart failure (principal); I50.20 Unspecified systolic (congestive) heart failure; I50.23 Acute on chronic systolic (congestive) heart failure; N17.9 Acute kidney failure, unspecified; E87.1 Hypo-osmolality and hyponatremia; I95.9 Hypotension, unspecified; J90 Pleural effusion, not elsewhere classified; K21.00 Gastro-esophageal reflux disease with esophagitis, without bleeding; Z20.822 Contact with and (suspected) exposure to COVID-19; I48.91 Unspecified atrial fibrillation; D50.9 Iron deficiency anemia, unspecified; K21.9 Gastro-esophageal reflux disease without esophagitis; Z79.01 Long term (current) use of anticoagulants; Z91.048 Other nonmedicinal substance allergy status; T50.1X6A Underdosing of loop [high-ceiling] diuretics, initial encounter; Z91.128 Patient's intentional underdosing of medication regimen for other reason
CPT/HCPCS: 36415; 71045; 80048; 80053; 80162; 81001; 82533; 82728; 83540; 83690; 83880; 84466; 84484; 85025; 85610; 87631; 93005; 93306; 96374; 96375; 96376; 99284; 99285; A9270; G0378; J0690; J1940; 0202U; 81003; 87086

== ENCOUNTER 2022-01-25 18:04 | Outpatient (CLI) | payer MEDICARE, OTHER ==
[2022-01-25 20:07] LABS: HCT - HEMATOCRIT 39.3 % (37.0-47.0); HGB - HEMOGLOBIN 12.2 g/dL (12.0-16.0); MEAN CORPUSCULAR HEMOGLOBIN 26.1 pg (27.0-31.0); MEAN CORPUSCULAR VOLUME 84.2 fL (81.0-99.0); MEAN PLATELET VOLUME 9.9 fL (7.9-10.8); RED BLOOD COUNT 4.67 10^6/uL (4.20-5.40); RED CELL DISTRIBUTION WIDTH 15.6 % (12.0-15.0); WHITE BLOOD COUNT 8.3 x10^3/uL (4.8-10.8)
[2022-01-25 20:20] LABS: ALBUMIN 4.6 g/dL (3.2-5.5); BILIRUBIN,DIRECT 0.2 mg/dL (0.1-0.5); BILIRUBIN,TOTAL 0.8 mg/dL (0.2-1.0); TOTAL PROTEIN 7.5 g/dL (6.7-8.2)
== END 2022-01-25 18:05 | disposition home or self-care (01) ==
LOC: LAB.S 18:04
PROVIDERS: ATTEND Internal Medicine Cardiovascular Disease
DX: I48.20 Chronic atrial fibrillation, unspecified (principal); E78.49 Other hyperlipidemia; I25.119 Atherosclerotic heart disease of native coronary artery with unspecified angina pectoris; Z79.01 Long term (current) use of anticoagulants
CPT/HCPCS: 36415; 80076; 84443; 85027

== ENCOUNTER 2022-01-31 13:44 | Outpatient (CLI) | payer MEDICARE, OTHER | END 2022-01-31 13:45 | disposition home or self-care (01) | LOC: RT 13:44 | PROVIDERS: ATTEND Internal Medicine | DX: I48.20 Chronic atrial fibrillation, unspecified (principal) | CPT/HCPCS: 93005 ==

== ENCOUNTER 2022-02-15 13:14 | Outpatient (CLI) | payer MEDICARE, OTHER ==
[2022-02-15 20:14] LABS: CALCIUM 8.9 mg/dL (8.5-10.3); CREATININE 1.5 mg/dL (0.4-1.0); POTASSIUM 3.9 mmol/L (3.5-5.0)
== END 2022-02-15 13:15 | disposition home or self-care (01) ==
LOC: LAB.S 13:14
PROVIDERS: ATTEND Internal Medicine Cardiovascular Disease
DX: I50.22 Chronic systolic (congestive) heart failure (principal)
CPT/HCPCS: 36415; 80048

== ENCOUNTER 2022-03-07 08:00 | Outpatient (CLI) | payer MEDICARE, OTHER ==
[2022-03-07 14:18] LABS: INR 1.6 (0.8-1.2)
[2022-03-07 14:40] LABS: ALBUMIN/GLOBULIN RATIO 1.5 (1.0-2.2); BILIRUBIN,TOTAL 0.9 mg/dL (0.2-1.0); CALCIUM 9.4 mg/dL (8.5-10.3); CREATININE 1.9 mg/dL (0.4-1.0); POTASSIUM 3.1 mmol/L (3.5-5.0); TOTAL PROTEIN 6.7 g/dL (6.7-8.2)
[2022-03-07 14:42] LABS: BASOPHILS % (AUTO) 0.6 %; EOSINOPHILS # (AUTO) 0.1 10^3/uL (0.0-0.7); EOSINOPHILS % (AUTO) 1.5 %; HCT - HEMATOCRIT 40.2 % (37.0-47.0); HGB - HEMOGLOBIN 12.6 g/dL (12.0-16.0); LYMPHOCYTES # (AUTO) 1.8 10^3/uL (1.5-3.5); LYMPHOCYTES % (AUTO) 25.4 %; MEAN CORPUSCULAR HEMOGLOBIN 26.5 pg (27.0-31.0); MEAN CORPUSCULAR HGB CONC 31.3 g/dL (32.0-36.0); MEAN CORPUSCULAR VOLUME 84.5 fL (81.0-99.0); MEAN PLATELET VOLUME 9.5 fL (7.9-10.8); MONOCYTES # (AUTO) 0.8 10^3/uL (0.0-1.0); MONOCYTES % (AUTO) 11.1 %; NEUTROPHILS # (AUTO) 4.3 10^3/uL (1.5-6.6); NEUTROPHILS % (AUTO) 60.8 %; PLT - PLATELET COUNT 222 10^3/uL (130-450); RED BLOOD COUNT 4.76 10^6/uL (4.20-5.40); RED CELL DISTRIBUTION WIDTH 18.2 % (12.0-15.0); WHITE BLOOD COUNT 7.1 x10^3/uL (4.8-10.8)
== END 2022-03-07 08:01 | disposition home or self-care (01) ==
LOC: LAB.S 08:00
PROVIDERS: ATTEND Emergency Medicine
DX: I50.32 Chronic diastolic (congestive) heart failure (principal); R63.4 Abnormal weight loss; I48.21 Permanent atrial fibrillation
CPT/HCPCS: 36415; 80053; 83690; 83880; 84100; 85025; 85610

== ENCOUNTER 2022-03-11 13:02 | Outpatient (CLI) | payer MEDICARE, OTHER | END 2022-03-11 13:03 | disposition home or self-care (01) | LOC: LAB.S 13:02 | PROVIDERS: ATTEND Internal Medicine Cardiovascular Disease | DX: I48.91 Unspecified atrial fibrillation (principal) | CPT/HCPCS: 36415; 82565 ==

== ENCOUNTER 2022-03-16 12:15 | Outpatient (CLI) | payer MEDICARE, OTHER | END 2022-03-16 12:16 | disposition home or self-care (01) | LOC: RT 12:15 | PROVIDERS: ATTEND Internal Medicine Cardiovascular Disease | DX: I48.91 Unspecified atrial fibrillation (principal); I50.9 Heart failure, unspecified | CPT/HCPCS: 36415; 80053; 84439; 84443; 93005 ==

== ENCOUNTER 2022-03-16 13:31 | Outpatient (CLI) | payer MEDICARE, OTHER ==
[2022-03-16 14:07] LABS: ALBUMIN 4.4 g/dL (3.2-5.5); ALBUMIN/GLOBULIN RATIO 1.3 (1.0-2.2); BILIRUBIN,TOTAL 1.6 mg/dL (0.2-1.0); CALCIUM 9.3 mg/dL (8.5-10.3); POTASSIUM 3.9 mmol/L (3.5-5.0); TOTAL PROTEIN 7.8 g/dL (6.7-8.2)
[2022-03-16 14:17] LABS: THYROID STIMULATING HORMONE 13.67 uIU/mL (0.34-5.60)
[2022-03-16 14:19] LABS: FREE T4 (FREE THYROXINE) 1.12 ng/dL (0.58-1.64)
== END 2022-03-16 13:32 | disposition home or self-care (01) ==
LOC: LAB 13:31
PROVIDERS: ATTEND Internal Medicine Cardiovascular Disease
DX: I50.9 Heart failure, unspecified (principal)
CPT/HCPCS: 36415; 80053; 84439; 84443

== ENCOUNTER 2022-04-18 14:06 | Outpatient (CLI) | payer MEDICARE, OTHER ==
[2022-04-18 20:13] LABS: CALCIUM 8.8 mg/dL (8.5-10.3); CREATININE 1.4 mg/dL (0.4-1.0); POTASSIUM 4.7 mmol/L (3.5-5.0)
== END 2022-04-18 14:07 | disposition home or self-care (01) ==
LOC: LAB.S 14:06
PROVIDERS: ATTEND Internal Medicine Cardiovascular Disease
DX: I50.32 Chronic diastolic (congestive) heart failure (principal)
CPT/HCPCS: 36415; 80048